=== PATIENT | male | born 1955 | race African-American/Black ===

== ENCOUNTER 2017-05-07 16:43 | Inpatient (IN) | payer OTHER ==
[~2017-05-07] VITALS: Ht 190.5 cm; Wt 90.7 kg
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
[2017-05-07] MEDS ORDERED: COLACE100 MG ORAL (17:34)
[2017-05-07] MEDS ORDERED: ATORVASTATIN CA40 MG ORAL (17:34)
[2017-05-07] MEDS ORDERED: MILK OF MA400 MG/51 ORAL (17:34)
[2017-05-07] MEDS ORDERED: HUMALOG100 UNIT/4 SUBQ (17:34)
[2017-05-07] MEDS ORDERED: ASPIRIN81 MG ORAL (17:34)
[2017-05-07] MEDS ORDERED: MELATONIN 3 MG1 EAC1 PO (17:34)
[2017-05-07] MEDS ORDERED: AMLODIPINE BESY10 MG ORAL (17:34)
[2017-05-07] MEDS ORDERED: MIRALAX17 G2 ORAL (17:34)
[2017-05-07] MEDS ORDERED: VITAMIN B-1100 MG ORAL (17:34)
[2017-05-07] MEDS ORDERED: MULTIVITAMINS1 EAC2 ORAL (17:34)
[2017-05-07] MEDS ORDERED: ZYPREXA5 MG ORAL (17:34)
[2017-05-07] MEDS ORDERED: METFORMIN HCL500 M1 ORAL (17:34)
[2017-05-07] MEDS ORDERED: KEPPRA LIQ100 MG/1 M ORAL (17:34)
[2017-05-07] MEDS ORDERED: LISINOPRIL5 MG ORAL (17:34)
[2017-05-07 18:22] LABS: APPEARANCE,URINE CLEAR; BILIRUBIN, URINE NEGATIVE (NEGATIVE); COLOR,URINE PALE YELLOW; GLUCOSE, URINE (UA) 4+ (NEGATIVE); KETONES,URINE 1+ (NEGATIVE); LEUKOCYTE ESTERASE ,URINE 1+ (NEGATIVE); NITRITE,URINE NEGATIVE (NEGATIVE); PH,URINE 5 (4.5-8.0); PROTEIN,URINE 2+ (NEGATIVE); UROBILINOGEN,URINE NORMAL MG/DL (0.0-1.0)
[2017-05-07] MEDS ORDERED: Morphine Sulfate 2mg/ml Inj IVP PRN (19:00)
[2017-05-07] MEDS ORDERED: Miralax 17gm pkt ORAL PRN (19:00)
[2017-05-07] MEDS ORDERED: Mylanta II UD 30ml ORAL PRN (19:00)
[2017-05-07] MEDS ORDERED: LORazepam Inj 2mg/ml 1ml IV PRN (19:00)
[2017-05-07 19:01] VITALS: BP 167/86
[2017-05-07 19:23] LABS: BASOPHILS % (AUTO) 0.8 % (0.0-2.0); EOSINOPHILS % (AUTO) 2.4 % (0.0-3.0); HEMATOCRIT 37.1 % (42.0-52.0); HEMOGLOBIN 11.9 G/DL (14.2-18.0); LYMPHOCYTES % (AUTO) 21.6 % (20.0-45.0); MEAN CORPUSCULAR VOLUME 88 FL (80-99); MONOCYTES % (AUTO) 7.9 % (1.0-10.0); NEUTROPHILS % (AUTO) 67.4 % (45.0-75.0); PLATELET COUNT 317 K/UL (150-450); RED BLOOD COUNT 4.22 M/UL (4.70-6.10); RED CELL DISTRIBUTION WIDTH 14.1 % (11.6-14.8); WHITE BLOOD COUNT 7.2 K/UL (4.8-10.8)
[2017-05-07 19:38] LABS: ANION GAP 9 mmol/L (5-15); BLOOD UREA NITROGEN 28 mg/dL (7-18); CALCIUM 9.6 MG/DL (8.5-10.1); CARBON DIOXIDE 30 MMOL/L (21-32); CHLORIDE 103 MMOL/L (98-107); CREATININE 1.1 MG/DL (0.55-1.30); POTASSIUM 3.8 MMOL/L (3.5-5.1); SODIUM 142 MMOL/L (136-145)
[2017-05-07 19:50] LABS: ALANINE AMINOTRANSFERASE 36 U/L (12-78); ALBUMIN/GLOBULIN RATIO 0.7 (1.0-2.7); ALKALINE PHOSPHATASE 160 U/L (46-116); ASPARTATE AMINO TRANSFERASE 20 U/L (15-37); BILIRUBIN,TOTAL 0.2 MG/DL (0.2-1.0)
[2017-05-07 21:30] VITALS: BP 159/69
[2017-05-07] MEDS: Atorvastatin 80mg tab ORAL SCH (23:17)
[2017-05-07] MEDS: Zolpidem 5mg tab ORAL PRN (23:18)
[2017-05-07] MEDS: Heparin 5000 units/ml inj SUBQ SCH (23:21)
[2017-05-08] VITALS: BP 163/82
[2017-05-08] MEDS: NovoLOG Insulin Flexpen SUBQ SCH ×5 (00:07→21:24)
[2017-05-08 04:00] VITALS: BP 165/82
[2017-05-08 07:52] LABS: BASOPHILS % (AUTO) 0.5 % (0.0-2.0); EOSINOPHILS % (AUTO) 3.1 % (0.0-3.0); HEMATOCRIT 33.3 % (42.0-52.0); HEMOGLOBIN 10.8 G/DL (14.2-18.0); LYMPHOCYTES % (AUTO) 20.6 % (20.0-45.0); MEAN CORPUSCULAR VOLUME 87 FL (80-99); MONOCYTES % (AUTO) 7.7 % (1.0-10.0); NEUTROPHILS % (AUTO) 68.1 % (45.0-75.0); PLATELET COUNT 297 K/UL (150-450); RED BLOOD COUNT 3.82 M/UL (4.70-6.10); WHITE BLOOD COUNT 6.8 K/UL (4.8-10.8)
[2017-05-08 08:04] VITALS: BP 149/73
[2017-05-08 08:13] LABS: ALANINE AMINOTRANSFERASE 31 U/L (12-78); ALBUMIN 2.7 G/DL (3.4-5.0); ALBUMIN/GLOBULIN RATIO 0.6 (1.0-2.7); ALKALINE PHOSPHATASE 143 U/L (46-116); ANION GAP 5 mmol/L (5-15); ASPARTATE AMINO TRANSFERASE 19 U/L (15-37); BILIRUBIN,TOTAL 0.2 MG/DL (0.2-1.0); BLOOD UREA NITROGEN 22 mg/dL (7-18); CARBON DIOXIDE 32 MMOL/L (21-32); CHLORIDE 102 MMOL/L (98-107); CHOLESTEROL 154 MG/DL (< 200); HDL CHOLESTEROL 79 MG/DL (40-60); POTASSIUM 4.1 MMOL/L (3.5-5.1); SODIUM 139 MMOL/L (136-145); TRIGLYCERIDES 94 MG/DL (30-150)
--- NOTE | 2017-05-08 08:39 | Diagnostic Imaging Report ---
Indication: Altered mental status Technique: One view of the chest Comparison: none Findings: Band of atelectasis or scarring are seen in the left midlung periphery. Lungs and pleural spaces otherwise clear. The heart is enlarged. Impression: Splenomegaly Left lateral atelectasis or scarring. No acute process otherwise
[2017-05-08] MEDS: Lisinopril 2.5mg tab ORAL SCH (08:48)
[2017-05-08] MEDS: Aspirin Baby 81mg ORAL SCH (08:48)
[2017-05-08] MEDS: Heparin 5000 units/ml inj SUBQ SCH ×2 (08:49→21:06)
[2017-05-08] MEDS: levETIRAcetam 500mg/5ml Liquid ORAL SCH ×2 (08:49→17:38)
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
[2017-05-08] MEDS ORDERED: OLANZapine 2.5mg tab ORAL SCH (09:00)
[2017-05-08 12:15] VITALS: BP 146/68
[2017-05-08] MEDS: Levemir Flexpen SUBQ SCH (14:16)
--- NOTE | 2017-05-08 15:58 | Cardiology Report ---
APPROVED REPORT EKG Measurement Heart [id number] Normal sinus rhythm with sinus arrhythmia Septal infarct, age undetermined Abnormal ECG
[2017-05-08 16:14] VITALS: BP 132/56
[2017-05-08 20:00] VITALS: BP 155/69
[2017-05-08] MEDS: Atorvastatin 80mg tab ORAL SCH (20:46)
[2017-05-09] VITALS: BP 153/77
[2017-05-09 04:00] VITALS: BP 154/81
[2017-05-09] MEDS: NovoLOG Insulin Flexpen SUBQ SCH ×4 (06:37→20:44)
[2017-05-09 08:15] VITALS: BP 147/62
[2017-05-09] MEDS: Thiamine 100mg tab ORAL SCH (09:15)
[2017-05-09] MEDS: Aspirin Baby 81mg ORAL SCH (09:16)
[2017-05-09] MEDS: Lisinopril 2.5mg tab ORAL SCH (09:16)
[2017-05-09] MEDS: levETIRAcetam 500mg/5ml Liquid ORAL SCH ×2 (09:16→18:13)
[2017-05-09] MEDS: Heparin 5000 units/ml inj SUBQ SCH ×2 (09:21→20:45)
[2017-05-09 12:15] VITALS: BP 133/70
[2017-05-09] MEDS: Levemir Flexpen SUBQ SCH ×2 (12:24→20:44)
--- NOTE | 2017-05-09 13:06 | Pulmonology Progress Note ---
Assessment/Plan Assessment/Plan ASSESSMENT DOOC chronic psychiatric disorder exacerbation HTN seizure disorder CVA with CREATIVE DESIGNER ETOH abuse mild dehydration mild anemia PLAN OF CARE [facility] floor psych eval appreciated, optimized psych medication.regimen- BS management, SSI and increase Levemir, check HgA1c BP management with CCB and EN, optimize further as needed continue ASA and statin DVT prophylaxis seizure precautions, continue Keppra, monitor for any paroxysmal events declined IVF, push po fluids, monitor BUN monitor counts, currently mild anemia add Thiamine and Folic acid treatment counselor on abstinence from ETOH case discussed and evaluated by supervising physician Subjective Allergies: Coded Allergies: No Known Allergies (Unverified , 05/07/17) Subjective BS still not controlled behavior better Objective Last 24 Hour Vital Signs Date Time Temp Pulse Resp B/P (MAP) Pulse Ox O2 Delivery O2 Flow Rate FiO2 05/09/17 12:15 97.3 58 19 133/70 98 Room Air 05/09/17 09:17 61 147/62 05/09/17 09:16 147/62 05/09/17 08:15 97.6 56 22 147/62 100 Room Air 05/09/17 04:00 97.2 52 21 154/81 100 05/09/17 00:00 97.1 64 20 153/77 100 05/08/17 20:00 97.2 52 20 155/69 100 05/08/17 20:00 62 20 Room Air 05/08/17 16:14 98.2 72 18 132/56 100 Room Air Intake and Output 05/08/17 05/09/17 19:00 07:00 Intake Total 480 ml Output Total 2200 ml Balance 480 ml -2200 ml Intake Oral 480 ml Output Urine Total 2200 ml # Voids 4 Objective General Appearance: no apparent distress, alert, poor eye contact HEENT: normocephalic, atraumatic, anicteric, mucous membranes moist Neck: non-tender, normal alignment, supple Respiratory/Chest: lungs clear, no respiratory distress, no accessory muscle use Cardiovascular/Chest: normal peripheral pulses, normal rate, no JVD Abdomen: normal bowel sounds, non tender, soft Extremities: non-tender, no calf tenderness, normal capillary refill Neurologic: alert, responsive, CREATIVE DESIGNER Microbiology Date/Time Source Procedure Growth Status 05/07/17 22:00 Nasal Nares MRSA Culture - Final Staphylococcus Aureus - Mrsa Complete Current Medications Medications (Trade) Dose Ordered Sig/Christine Route PRN Reason Start Time Stop Time Status Last Admin Dose Admin Acetaminophen (Tylenol) 650 mg Q4H PRN ORAL fever 05/07/17 19:00 06/06/17 18:59 Al Hydroxide/Mg Hydroxide (Mylanta II) 30 ml Q6H PRN ORAL dyspepsia 05/07/17 19:00 06/06/17 18:59 Amlodipine Besylate (Norvasc) 10 mg DAILY ORAL 05/08/17 09:00 06/07/17 08:59 05/09/17 09:17 Aspirin (ASA) 81 mg DAILY ORAL 05/08/17 09:00 06/07/17 08:59 05/09/17 09:16 Atorvastatin Calcium (Lipitor) 80 mg BEDTIME ORAL 05/07/17 21:00 06/06/17 20:59 05/08/17 20:46 Dextrose (Dextrose 50%) STAT PRN IV Hypoglycemia 05/07/17 19:00 06/06/17 18:59 Folic Acid (Folate) 1 mg DAILY ORAL 05/09/17 09:00 06/08/17 08:59 05/09/17 09:17 Heparin Sodium (Porcine) (Heparin 5000 units/ml) 5,000 units EVERY 12 HOURS SUBQ 05/07/17 21:00 06/06/17 20:59 05/09/17 09:21 Insulin Aspart (NovoLOG) BEFORE MEALS AND HS SUBQ 05/07/17 21:00 06/06/17 20:59 05/09/17 12:23 Insulin Detemir (Levemir) 15 units Q24H SUBQ 05/08/17 12:00 06/07/17 11:59 05/09/17 12:24 Levetiracetam (Keppra) 750 mg TWICE A DAY ORAL 05/08/17 09:00 06/07/17 08:59 05/09/17 09:16 Lisinopril (Zestril) 5 mg DAILY ORAL 05/08/17 09:00 06/07/17 08:59 05/09/17 09:16 Lorazepam (Ativan 2mg/ml 1ml) 0.5 mg Q4H PRN IV For Anxiety 05/07/17 19:00 05/14/17 18:59 Morphine Sulfate (Morphine Sulfate) 1 mg EVERY 4 HOURS PRN IVP For Pain 05/07/17 19:00 05/14/17 18:59 Ondansetron HCl (Zofran) 4 mg Q6H PRN IVP Nausea & Vomiting 05/07/17 19:00 06/06/17 18:59 Polyethylene Glycol (Miralax) 17 gm HSPRN PRN ORAL Constipation 05/07/17 19:00 06/06/17 18:59 Risperidone (RisperDAL) 2 mg BEDTIME ORAL 05/08/17 21:00 06/07/17 20:59 05/08/17 21:04 Thiamine HCl (Vitamin B1) 100 mg DAILY ORAL 05/09/17 09:00 06/08/17 08:59 05/09/17 09:15 Zolpidem Tartrate (Ambien) 5 mg HSPRN PRN ORAL Insomnia 05/07/17 19:00 05/14/17 18:59 05/07/17 23:18 Topher CramerEastern Niagara HospitalKsenia Limon NP May 09, 2017 13:06
[2017-05-09] MEDS ORDERED: Morphine Sulfate 4mg/ml Inj IVP PRN (16:45)
[2017-05-09 20:00] VITALS: BP 140/62
[2017-05-09] MEDS: Atorvastatin 80mg tab ORAL SCH (20:41)
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
[2017-05-10] VITALS: BP 120/50
[2017-05-10 04:00] VITALS: BP 139/72
[2017-05-10] MEDS: NovoLOG Insulin Flexpen SUBQ SCH ×4 (06:16→20:39)
[2017-05-10 08:04] VITALS: BP 134/60
[2017-05-10 08:05] LABS: BASOPHILS % (AUTO) 0.7 % (0.0-2.0); EOSINOPHILS % (AUTO) 3.5 % (0.0-3.0); HEMATOCRIT 33.9 % (42.0-52.0); LYMPHOCYTES % (AUTO) 21.5 % (20.0-45.0); MEAN CORPUSCULAR VOLUME 88 FL (80-99); MONOCYTES % (AUTO) 8.5 % (1.0-10.0); NEUTROPHILS % (AUTO) 65.8 % (45.0-75.0); PLATELET COUNT 289 K/UL (150-450); RED BLOOD COUNT 3.87 M/UL (4.70-6.10); RED CELL DISTRIBUTION WIDTH 14.3 % (11.6-14.8); WHITE BLOOD COUNT 5.7 K/UL (4.8-10.8)
[2017-05-10] MEDS: Thiamine 100mg tab ORAL SCH (09:14)
[2017-05-10] MEDS: Aspirin Baby 81mg ORAL SCH (09:14)
[2017-05-10] MEDS: levETIRAcetam 500mg/5ml Liquid ORAL SCH ×2 (09:15→18:14)
[2017-05-10] MEDS: Lisinopril 2.5mg tab ORAL SCH (09:15)
[2017-05-10] MEDS: Levemir Flexpen SUBQ SCH ×2 (09:17→18:15)
[2017-05-10] MEDS: Heparin 5000 units/ml inj SUBQ SCH ×2 (09:18→20:38)
[2017-05-10 12:00] VITALS: BP 154/70
[2017-05-10] MEDS ORDERED: DiphenhydrAMINE 50mg/ml Inj IM ONE (14:00)
[2017-05-10] MEDS ORDERED: LORazepam Inj 2mg/ml 1ml IM ONE (14:00)
[2017-05-10] MEDS ORDERED: Haloperidol 5mg/ml Inj IM ONE (14:00)
[2017-05-10 15:51] VITALS: BP 143/72
--- NOTE | 2017-05-10 15:59 | Pulmonology Progress Note ---
Assessment/Plan Problems: (1) Agitation (2) Seizure disorder (3) History of CVA (cerebrovascular accident) (4) Diabetes (5) ETOH abuse Assessment/Plan titrate meds f/u labs f/u psyc recommendations. Subjective ROS Limited/Unobtainable: No Constitutional: Reports: no symptoms HEENT: Repors: no symptoms Allergies: Coded Allergies: No Known Allergies (Unverified , 05/07/17) Objective Last 24 Hour Vital Signs Date Time Temp Pulse Resp B/P (MAP) Pulse Ox O2 Delivery O2 Flow Rate FiO2 05/10/17 15:51 98.2 78 20 143/72 100 05/10/17 15:19 Room Air 05/10/17 12:00 97.5 60 20 154/70 100 05/10/17 09:15 134/60 05/10/17 09:15 55 134/60 05/10/17 08:11 Room Air 05/10/17 08:04 97.9 55 20 134/60 100 05/10/17 04:00 97.0 58 21 139/72 100 05/10/17 00:00 97.7 76 21 120/50 97 05/10/17 00:00 Room Air 05/09/17 20:00 Room Air 05/09/17 20:00 97.9 73 21 140/62 98 Intake and Output 05/09/17 05/10/17 19:00 07:00 Intake Total 1440 ml Output Total 700 ml 1100 ml Balance 740 ml -1100 ml Intake Oral 1440 ml Output Urine Total 700 ml 1100 ml Objective General Appearance: no apparent distress, alert, poor eye contact HEENT: normocephalic, atraumatic, anicteric, mucous membranes moist Neck: non-tender, normal alignment, supple Respiratory/Chest: lungs clear, no respiratory distress, no accessory muscle use Cardiovascular/Chest: normal peripheral pulses, normal rate, no JVD Abdomen: normal bowel sounds, non tender, soft Extremities: non-tender, no calf tenderness, normal capillary refill Neurologic: alert, responsive, [employer] Microbiology Date/Time Source Procedure Growth Status 05/07/17 22:00 Nasal Nares MRSA Culture - Final Staphylococcus Aureus - Mrsa Complete 05/07/17 22:00 Rectum VRE Culture - Final Enterococcus Faecalis - Vre Complete Laboratory Tests 05/10/17 06:50: White Blood Count 5.7, Red Blood Count 3.87L, Hemoglobin 11.0L, Hematocrit 33.9L , Mean Corpuscular Volume 88, Mean Corpuscular Hemoglobin 28.4, Mean Corpuscular Hemoglobin Concent 32.4, Red Cell Distribution Width 14.3, Platelet Count 289, Mean Platelet Volume 7.1, Neutrophils (%) (Auto) 65.8, Lymphocytes (% ) (Auto) 21.5, Monocytes (%) (Auto) 8.5, Eosinophils (%) (Auto) 3.5H, Basophils (%) (Auto) 0.7, Hemoglobin A1c 10.1H, Thyroid Stimulating Hormone (TSH) 1.972 Current Medications Medications (Trade) Dose Ordered Sig/Christine Route PRN Reason Start Time Stop Time Status Last Admin Dose Admin Acetaminophen (Tylenol) 650 mg Q4H PRN ORAL fever 05/07/17 19:00 06/06/17 18:59 Al Hydroxide/Mg Hydroxide (Mylanta II) 30 ml Q6H PRN ORAL dyspepsia 05/07/17 19:00 06/06/17 18:59 Amlodipine Besylate (Norvasc) 10 mg DAILY ORAL 05/08/17 09:00 06/07/17 08:59 05/10/17 09:15 Aspirin (ASA) 81 mg DAILY ORAL 05/08/17 09:00 06/07/17 08:59 05/10/17 09:14 Atorvastatin Calcium (Lipitor) 80 mg BEDTIME ORAL 05/07/17 21:00 06/06/17 20:59 05/09/17 20:41 Dextrose (Dextrose 50%) STAT PRN IV Hypoglycemia 05/07/17 19:00 06/06/17 18:59 05/10/17 06:13 Divalproex Sodium (Depakote) 500 mg EVERY 12 HOURS ORAL 05/10/17 21:00 06/09/17 20:59 Folic Acid (Folate) 1 mg DAILY ORAL 05/09/17 09:00 06/08/17 08:59 05/10/17 09:15 Heparin Sodium (Porcine) (Heparin 5000 units/ml) 5,000 units EVERY 12 HOURS SUBQ 05/07/17 21:00 06/06/17 20:59 05/10/17 09:18 Insulin Aspart (NovoLOG) BEFORE MEALS AND HS SUBQ 05/07/17 21:00 06/06/17 20:59 05/10/17 12:13 Insulin Detemir (Levemir) 15 units BID SUBQ 05/09/17 21:00 06/08/17 20:59 05/10/17 09:17 Levetiracetam (Keppra) 750 mg TWICE A DAY ORAL 05/08/17 09:00 06/07/17 08:59 05/10/17 09:15 Lisinopril (Zestril) 5 mg DAILY ORAL 05/08/17 09:00 06/07/17 08:59 05/10/17 09:15 Lorazepam (Ativan 2mg/ml 1ml) 0.5 mg Q4H PRN IV For Anxiety 05/07/17 19:00 05/14/17 18:59 Morphine Sulfate (Morphine Sulfate) 1 mg Q4H PRN IVP For Pain 4-10 05/09/17 16:45 05/16/17 16:44 Ondansetron HCl (Zofran) 4 mg Q6H PRN IVP Nausea & Vomiting 05/07/17 19:00 06/06/17 18:59 Polyethylene Glycol (Miralax) 17 gm HSPRN PRN ORAL Constipation 05/07/17 19:00 06/06/17 18:59 Risperidone (RisperDAL) 2 mg BEDTIME ORAL 05/08/17 21:00 06/07/17 20:59 05/09/17 20:41 Risperidone (RisperDAL) 2 mg DAILY ORAL 05/11/17 09:00 06/10/17 08:59 Thiamine HCl (Vitamin B1) 100 mg DAILY ORAL 05/09/17 09:00 06/08/17 08:59 05/10/17 09:14 Zolpidem Tartrate (Ambien) 5 mg HSPRN PRN ORAL Insomnia 05/07/17 19:00 05/14/17 18:59 05/07/17 23:18 MAYRA GUTIERREZ May 10, 2017 15:59
[2017-05-10] MEDS ORDERED: RISPERDAL1 MG ORAL ×2 (17:33)
[2017-05-10] MEDS ORDERED: LEVEMIR FL100 UNIT/1 SUBQ (17:33)
[2017-05-10] MEDS ORDERED: AMBIEN5 MG ORAL (17:33)
[2017-05-10] MEDS ORDERED: DIVALPROEX SOD500 MG ORAL (17:33)
[2017-05-10 19:49] VITALS: BP 141/77
[2017-05-10] MEDS: Atorvastatin 80mg tab ORAL SCH (20:35)
[2017-05-10] MEDS: Depakote 500mg tab ORAL SCH (20:36)
--- NOTE | 2017-05-10 21:15 | Progress Note ---
DATE: 05/10/2017 SUBJECTIVE: The patient continues to be easily agitated, yelling, screaming, and not following the staff's direction. Poor insight and judgment into his mental condition. The patient has flew his food all over the room, yelling, screaming, and is delusional. MENTAL STATUS EXAMINATION: The patient is alert and oriented times self, place, and situation. Mood is irritable and angry. Affect is flat. Thought process is disorganized. Thought content, positive for delusions. Insight and judgment is nonexistent. ASSESSMENT: Schizophrenia. PLAN: 1. We will start the patient on risperidone 2 mg in the morning and 2 mg at night and Depakote 500 b.i.d. 2. We will continue to follow and readjust the medications. Marge Barrios M.D. DR: FATOU JOB#: [id number] CC:
[2017-05-11 00:09] VITALS: BP_SYST 101; BP_SYST 107; BP_DIAS 55; BP_DIAS 62
[2017-05-11 04:00] VITALS: BP 118/77
[2017-05-11] MEDS: NovoLOG Insulin Flexpen SUBQ SCH ×4 (06:30→21:16)
[2017-05-11 08:27] VITALS: BP 127/78
[2017-05-11] MEDS: Depakote 500mg tab ORAL SCH ×2 (09:51→21:13)
[2017-05-11] MEDS: Aspirin Baby 81mg ORAL SCH (09:51)
[2017-05-11] MEDS: Thiamine 100mg tab ORAL SCH (09:51)
[2017-05-11] MEDS: levETIRAcetam 500mg/5ml Liquid ORAL SCH ×2 (09:52→17:55)
[2017-05-11] MEDS: Heparin 5000 units/ml inj SUBQ SCH ×2 (09:53→21:15)
[2017-05-11] MEDS: Levemir Flexpen SUBQ SCH ×2 (09:54→17:55)
[2017-05-11] MEDS: Lisinopril 2.5mg tab ORAL SCH (09:56)
[2017-05-11 11:47] VITALS: BP 152/76
--- NOTE | 2017-05-11 15:37 | Pulmonology Progress Note ---
Assessment/Plan Problems: (1) Agitation (2) Seizure disorder (3) History of CVA (cerebrovascular accident) (4) Diabetes (5) ETOH abuse Assessment/Plan titrate meds f/u labs f/u psyc recommendations. awaiting dc to senior care Subjective ROS Limited/Unobtainable: No Constitutional: Reports: no symptoms HEENT: Repors: no symptoms Allergies: Coded Allergies: No Known Allergies (Unverified , 05/07/17) Objective Last 24 Hour Vital Signs Date Time Temp Pulse Resp B/P (MAP) Pulse Ox O2 Delivery O2 Flow Rate FiO2 05/11/17 11:47 98.0 56 20 152/76 99 05/11/17 09:56 127/78 05/11/17 09:52 56 127/78 05/11/17 08:27 97.7 56 20 127/78 100 05/11/17 04:00 97.6 76 20 118/77 98 05/11/17 00:09 97.6 70 18 101/55 97 05/10/17 19:49 98.1 82 20 141/77 99 05/10/17 15:51 98.2 78 20 143/72 100 Intake and Output 05/10/17 05/11/17 19:00 07:00 Intake Total 600 ml Output Total 1800 ml 1700 ml Balance -1200 ml -1700 ml Intake Oral 600 ml Output Urine Total 1800 ml 1700 ml # Bowel Movements 1 Objective General Appearance: no apparent distress, alert, poor eye contact HEENT: normocephalic, atraumatic, anicteric, mucous membranes moist Neck: non-tender, normal alignment, supple Respiratory/Chest: lungs clear, no respiratory distress, no accessory muscle use Cardiovascular/Chest: normal peripheral pulses, normal rate, no JVD Abdomen: normal bowel sounds, non tender, soft Extremities: non-tender, no calf tenderness, normal capillary refill Neurologic: alert, responsive, [employer] Current Medications Medications (Trade) Dose Ordered Sig/Christine Route PRN Reason Start Time Stop Time Status Last Admin Dose Admin Acetaminophen (Tylenol) 650 mg Q4H PRN ORAL fever 05/07/17 19:00 06/06/17 18:59 Al Hydroxide/Mg Hydroxide (Mylanta II) 30 ml Q6H PRN ORAL dyspepsia 05/07/17 19:00 06/06/17 18:59 Amlodipine Besylate (Norvasc) 10 mg DAILY ORAL 05/08/17 09:00 06/07/17 08:59 05/11/17 09:52 Aspirin (ASA) 81 mg DAILY ORAL 05/08/17 09:00 06/07/17 08:59 05/11/17 09:51 Atorvastatin Calcium (Lipitor) 80 mg BEDTIME ORAL 05/07/17 21:00 06/06/17 20:59 05/10/17 20:35 Dextrose (Dextrose 50%) STAT PRN IV Hypoglycemia 05/07/17 19:00 06/06/17 18:59 05/10/17 06:13 Divalproex Sodium (Depakote) 500 mg EVERY 12 HOURS ORAL 05/10/17 21:00 06/09/17 20:59 05/11/17 09:51 Folic Acid (Folate) 1 mg DAILY ORAL 05/09/17 09:00 06/08/17 08:59 05/11/17 09:51 Heparin Sodium (Porcine) (Heparin 5000 units/ml) 5,000 units EVERY 12 HOURS SUBQ 05/07/17 21:00 06/06/17 20:59 05/11/17 09:53 Insulin Aspart (NovoLOG) BEFORE MEALS AND HS SUBQ 05/07/17 21:00 06/06/17 20:59 05/11/17 11:51 Insulin Detemir (Levemir) 15 units BID SUBQ 05/09/17 21:00 06/08/17 20:59 05/11/17 09:54 Levetiracetam (Keppra) 750 mg TWICE A DAY ORAL 05/08/17 09:00 06/07/17 08:59 05/11/17 09:52 Lisinopril (Zestril) 5 mg DAILY ORAL 05/08/17 09:00 06/07/17 08:59 05/11/17 09:56 Lorazepam (Ativan 2mg/ml 1ml) 0.5 mg Q4H PRN IV For Anxiety 05/07/17 19:00 05/14/17 18:59 Morphine Sulfate (Morphine Sulfate) 1 mg Q4H PRN IVP For Pain 4-10 05/09/17 16:45 05/16/17 16:44 Ondansetron HCl (Zofran) 4 mg Q6H PRN IVP Nausea & Vomiting 05/07/17 19:00 06/06/17 18:59 Polyethylene Glycol (Miralax) 17 gm HSPRN PRN ORAL Constipation 05/07/17 19:00 06/06/17 18:59 Risperidone (RisperDAL) 2 mg BEDTIME ORAL 05/08/17 21:00 06/07/17 20:59 05/10/17 20:36 Risperidone (RisperDAL) 2 mg DAILY ORAL 05/11/17 09:00 06/10/17 08:59 05/11/17 09:51 Thiamine HCl (Vitamin B1) 100 mg DAILY ORAL 05/09/17 09:00 06/08/17 08:59 05/11/17 09:51 Zolpidem Tartrate (Ambien) 5 mg HSPRN PRN ORAL Insomnia 05/07/17 19:00 05/14/17 18:59 05/07/17 23:18 MAYRA GUTIERREZ May 11, 2017 15:37
[2017-05-11 16:00] VITALS: BP 168/93
[2017-05-11 20:16] VITALS: BP 125/60
[2017-05-11] MEDS: Atorvastatin 80mg tab ORAL SCH (21:13)
[2017-05-11] MEDS: Zolpidem 5mg tab ORAL PRN (21:13)
[2017-05-12] VITALS (7 sets, daily range): BP systolic 130–166; BP diastolic 52–87
--- NOTE | 2017-05-12 02:15 | Progress Note ---
DATE: 05/07/2017 SUBJECTIVE: The patient is easily agitated and angry, has been illogical, abusive and belligerent towards the staff. The patient has been disorganized and delusional. MENTAL STATUS EXAMINATION: The patient is alert and oriented to time, self, and place. Mood is angry and agitated. Affect is constricted, congruent with mood. Thought process is disorganized. Thought content, positive for delusions. Insight and judgment non-existent. ASSESSMENT: Schizophrenia by history versus schizoaffective disorder, bipolar. PLAN: 1. We will increase Depakote to 750 mg twice a day. 2. Increase the risperidone to 4 mg at bedtime and 2 mg in the morning. Marge Barrios M.D. DR: BRAYDON JOB#: [id number] CC:
[2017-05-12] MEDS: NovoLOG Insulin Flexpen SUBQ SCH ×3 (06:25→17:05)
[2017-05-12] MEDS ORDERED: LORazepam 1mg tab ORAL PRN (08:30)
[2017-05-12] MEDS ORDERED: Depakote 500mg tab ORAL SCH (09:00)
[2017-05-12] MEDS: Aspirin Baby 81mg ORAL SCH (09:38)
[2017-05-12] MEDS: Thiamine 100mg tab ORAL SCH (09:38)
[2017-05-12] MEDS: Lisinopril 2.5mg tab ORAL SCH (09:38)
[2017-05-12] MEDS: levETIRAcetam 500mg/5ml Liquid ORAL SCH ×2 (09:39→17:37)
[2017-05-12] MEDS: Heparin 5000 units/ml inj SUBQ SCH (09:40)
[2017-05-12] MEDS: Levemir Flexpen SUBQ SCH ×2 (09:41→17:39)
[2017-05-12] MEDS ORDERED: RISPERDAL2 MG ORAL ×2 (12:23→12:37)
[2017-05-12] MEDS ORDERED: LORAZEPAM2 MG ORAL (12:23)
[2017-05-12] MEDS ORDERED: DEPAKOTE ER500 MG ORAL (12:25)
[2017-05-12] MEDS ORDERED: DEPAKOTE250 MG PO (12:26)
[2017-05-12] MEDS ORDERED: NOVOLOG100 UNIT/3 SUBQ (12:35)
[2017-05-12] MEDS ORDERED: LEVEMIR100 UNIT/1 SUBQ (13:14)
--- NOTE | 2017-05-12 15:18 | Pulmonology Progress Note ---
Assessment/Plan Problems: (1) Agitation (2) Seizure disorder (3) History of CVA (cerebrovascular accident) (4) Diabetes (5) ETOH abuse Assessment/Plan titrate meds f/u labs f/u psyc recommendations. awaiting dc to assisted dc when bed available Subjective ROS Limited/Unobtainable: No Interval Events: comfortable Allergies: Coded Allergies: No Known Allergies (Unverified , 05/07/17) Objective Last 24 Hour Vital Signs Date Time Temp Pulse Resp B/P (MAP) Pulse Ox O2 Delivery O2 Flow Rate FiO2 05/12/17 14:00 96.0 78 19 153/73 100 Room Air 05/12/17 12:00 97.5 78 19 166/70 100 Room Air 05/12/17 09:39 105 130/52 05/12/17 09:38 130/52 05/12/17 08:01 87 05/12/17 08:00 96.8 105 18 130/52 100 Room Air 05/12/17 04:00 97.0 62 20 143/87 98 05/12/17 00:08 96.8 63 20 137/63 100 05/11/17 20:16 98.1 56 17 125/60 100 05/11/17 16:00 97.7 100 20 168/93 100 Intake and Output 05/11/17 05/12/17 19:00 07:00 Intake Total 740 ml 250 ml Output Total 2400 ml 700 ml Balance -1660 ml -450 ml Intake Oral 740 ml 250 ml Output Urine Total 2400 ml 700 ml Objective General Appearance: no apparent distress, alert, poor eye contact HEENT: normocephalic, atraumatic, anicteric, mucous membranes moist Neck: non-tender, normal alignment, supple Respiratory/Chest: lungs clear, no respiratory distress, no accessory muscle use Cardiovascular/Chest: normal peripheral pulses, normal rate, no JVD Abdomen: normal bowel sounds, non tender, soft Extremities: non-tender, no calf tenderness, normal capillary refill Neurologic: alert, responsive, [employer]ER Current Medications Medications (Trade) Dose Ordered Sig/Christine Route PRN Reason Start Time Stop Time Status Last Admin Dose Admin Acetaminophen (Tylenol) 650 mg Q4H PRN ORAL fever 05/07/17 19:00 06/06/17 18:59 Al Hydroxide/Mg Hydroxide (Mylanta II) 30 ml Q6H PRN ORAL dyspepsia 05/07/17 19:00 06/06/17 18:59 Amlodipine Besylate (Norvasc) 10 mg DAILY ORAL 05/08/17 09:00 06/07/17 08:59 05/12/17 09:39 Aspirin (ASA) 81 mg DAILY ORAL 05/08/17 09:00 06/07/17 08:59 05/12/17 09:38 Atorvastatin Calcium (Lipitor) 80 mg BEDTIME ORAL 05/07/17 21:00 06/06/17 20:59 05/11/17 21:13 Clonidine HCl (Catapres Tab) 0.1 mg Q6H PRN ORAL SBP > 160mmHg 05/11/17 18:15 06/10/17 18:14 Dextrose (Dextrose 50%) STAT PRN IV Hypoglycemia 05/07/17 19:00 06/06/17 18:59 05/10/17 06:13 Divalproex Sodium (Depakote) 750 mg EVERY 12 HOURS ORAL 05/12/17 09:00 06/11/17 08:59 05/12/17 10:50 Folic Acid (Folate) 1 mg DAILY ORAL 05/09/17 09:00 06/08/17 08:59 05/12/17 09:38 Heparin Sodium (Porcine) (Heparin 5000 units/ml) 5,000 units EVERY 12 HOURS SUBQ 05/07/17 21:00 06/06/17 20:59 05/12/17 09:40 Insulin Aspart (NovoLOG) BEFORE MEALS AND HS SUBQ 05/07/17 21:00 06/06/17 20:59 05/12/17 12:04 Insulin Detemir (Levemir) 15 units BID SUBQ 05/09/17 21:00 06/08/17 20:59 05/12/17 09:41 Levetiracetam (Keppra) 750 mg TWICE A DAY ORAL 05/08/17 09:00 06/07/17 08:59 05/12/17 09:39 Lisinopril (Zestril) 5 mg DAILY ORAL 05/08/17 09:00 06/07/17 08:59 05/12/17 09:38 Lorazepam (Ativan 2mg/ml 1ml) 0.5 mg Q4H PRN IV For Anxiety 05/07/17 19:00 05/14/17 18:59 Lorazepam (Ativan) 2 mg Q6H PRN ORAL For Anxiety 05/12/17 08:30 05/19/17 08:29 Morphine Sulfate (Morphine Sulfate) 1 mg Q4H PRN IVP For Pain 4-10 05/09/17 16:45 05/16/17 16:44 Ondansetron HCl (Zofran) 4 mg Q6H PRN IVP Nausea & Vomiting 05/07/17 19:00 06/06/17 18:59 Polyethylene Glycol (Miralax) 17 gm HSPRN PRN ORAL Constipation 05/07/17 19:00 06/06/17 18:59 Risperidone (RisperDAL) 2 mg DAILY ORAL 05/11/17 09:00 06/10/17 08:59 05/12/17 09:38 Risperidone (RisperDAL) 4 mg BEDTIME ORAL 05/12/17 21:00 06/11/17 20:59 Thiamine HCl (Vitamin B1) 100 mg DAILY ORAL 05/09/17 09:00 06/08/17 08:59 05/12/17 09:38 Zolpidem Tartrate (Ambien) 5 mg HSPRN PRN ORAL Insomnia 05/07/17 19:00 05/14/17 18:59 05/11/17 21:13 MAYRA GUTIERREZ May 12, 2017 15:18
--- NOTE | 2017-05-12 22:21 | General Progress Note ---
Assessment/Plan Status: stable, progressing Subjective Date patient seen: May 12, 2017 Neurologic/Psychiatric: Reports: anxiety, depressed, emotional problems Allergies: Coded Allergies: No Known Allergies (Unverified , 05/07/17) Objective Last 24 Hour Vital Signs Date Time Temp Pulse Resp B/P (MAP) Pulse Ox O2 Delivery O2 Flow Rate FiO2 05/12/17 18:43 84 157/75 100 Room Air 05/12/17 16:00 97.5 86 20 159/80 99 Room Air 05/12/17 14:00 96.0 78 19 153/73 100 Room Air 05/12/17 12:00 97.5 78 19 166/70 100 Room Air 05/12/17 09:39 105 130/52 05/12/17 09:38 130/52 05/12/17 08:01 87 05/12/17 08:00 96.8 105 18 130/52 100 Room Air 05/12/17 04:00 97.0 62 20 143/87 98 05/12/17 00:08 96.8 63 20 137/63 100 Intake and Output 05/11/17 05/12/17 19:00 07:00 Intake Total 740 ml 250 ml Output Total 2400 ml 700 ml Balance -1660 ml -450 ml Intake Oral 740 ml 250 ml Output Urine Total 2400 ml 700 ml Height (Feet): 6 Height (Inches): 3.00 Weight (Pounds): 200 General Appearance: no apparent distress, alert, confused, agitated Marge Barrios M.D. May 12, 2017 22:21
--- NOTE | 2017-05-13 15:20 | Discharge Summary ---
Discharge Summary Hospital Course Date of Admission May 07, 2017 at 20:57 Date of Discharge May 12, 2017 at 18:55 Admitting Diagnosis agitation/ams HPI Billy Thornton is a 61 year old male who was admitted on May 07, 2017 at 20:57 for Agitation/Altered Mental Status Hospital Course [id number] Discharge Discharge Disposition Patient was discharged to snf Discharge Diagnoses: Kaylynn Renteria NP May 13, 2017 15:20
--- NOTE | 2017-05-14 06:00 | Discharge Summary 2 SIG ---
DATE OF ADMISSION: 05/07/2017 DATE OF DISCHARGE: 05/12/2017 ENROLLMENT MANAGEMENT VICE PRESIDENT: Marge Barrios M.D. BRIEF HOSPITAL COURSE: The patient is a 61-year-old male with history of hypertension, diabetes, seizure disorder, CVA with left-sided weakness, CAD, alcohol abuse, and psychiatric disorder, was sent from group home facility for evaluation of altered mental status and agitation. On presentation to ED, the patient was awake, alert, and oriented x3. He stated that he got into an altercation with the nurses because he felt like he was being manipulated by them. On evaluation at ED, toxicology screen was negative. Troponin was negative. EKG showed sinus rhythm with no ischemic changes. There was no leukocytosis. Electrolytes were stable. BUN was elevated. Urinalysis with 4+ glucose and 1+ ketone. Chest x-ray showed atelectasis versus scarring. He was then admitted for further evaluation. He was continued on aspirin and statins. Blood glucose was monitored. He was placed on insulin sliding scale and Levemir was added. He underwent psychiatric evaluation. The patient was delusional and was having persecutory delusions with waxing and waning of consciousness and agitation. He was provided a sitter. He was diagnosed with schizophrenia and was started on risperidone 2 mg nightly with p.r.n. Ativan. He continued to be agitated and yelling and was not following directions. Risperidone was increased to 2 mg b.i.d. and was started on Depakote 500 mg b.i.d. He continued to be illogical, abusive, and belligerent. Medications were further increased to risperidone 4 mg nightly and 2 mg every morning. Depakote was increased to 750 mg b.i.d. He was eventually discharged back to senior care. FINAL DIAGNOSES: 1. Agitation. 2. Seizure disorder. 3. Diabetes mellitus. 4. Old cerebrovascular accident. 5. Schizophrenia. 6. Schizoaffective disorder. 7. Bipolar disorder. 8. Ethanol abuse. 9. Dehydration. 10. Mild anemia. 11. Hypertension. 12. Seizure disorder. DISPOSITION: The patient was discharged to [facility]. DISCHARGE MEDICATIONS: Refer to medication list. Roxane Quijano M.D. I have been assigned to dictate discharge summary on this account and I was not involved in the patient's management. Kaylynn Renteria N.P. DR: Salvador JOB#: [id number] CC: JASON
== END 2017-05-12 18:55 | DRG 750 ==
LOC: EDBD 16:43 → EDBEDREQ 17:28 → EMR 19:07 → 4E 20:57 → EDBEDREQ 21:00 → 4E 05-09 16:32
DX: F20.9 Schizophrenia, unspecified (principal); E11.65 Type 2 diabetes mellitus with hyperglycemia; I10 Essential (primary) hypertension; I69.954 Hemiplegia and hemiparesis following unspecified cerebrovascular disease affecting left non-dominant side; E86.0 Dehydration; G40.909 Epilepsy, unspecified, not intractable, without status epilepticus; F10.10 Alcohol abuse, uncomplicated; D64.9 Anemia, unspecified; I25.10 Atherosclerotic heart disease of native coronary artery without angina pectoris; Z79.82 Long term (current) use of aspirin
CPT/HCPCS: 36415; 71045; 80053; 80061; 80307; 80329; 81003; 82962; 83036; 84443; 84484; 85025; 87081; 93005; 99285; J1815; S5561

== ENCOUNTER 2017-05-13 09:49 | Emergency (ER) | payer OTHER ==
[~2017-05-13] VITALS: Ht 182.9 cm; Wt 79.4 kg
[~2017-05-13 09:49] MED LIST: AMBIEN5 MG ORAL; AMLODIPINE BESY10 MG ORAL; ASPIRIN81 MG ORAL; ATORVASTATIN CA40 MG ORAL; COLACE100 MG ORAL; DEPAKOTE ER500 MG ORAL; DEPAKOTE250 MG PO; DIVALPROEX SOD500 MG ORAL; HUMALOG100 UNIT/4 SUBQ; KEPPRA LIQ100 MG/1 M ORAL; LEVEMIR FL100 UNIT/1 SUBQ; LEVEMIR100 UNIT/1 SUBQ; LISINOPRIL5 MG ORAL; LORAZEPAM2 MG ORAL; MELATONIN 3 MG1 EAC1 PO; METFORMIN HCL500 M1 ORAL; MILK OF MA400 MG/51 ORAL; MIRALAX17 G2 ORAL; MULTIVITAMINS1 EAC2 ORAL; NOVOLOG100 UNIT/3 SUBQ; RISPERDAL1 MG ORAL; RISPERDAL2 MG ORAL; VITAMIN B-1100 MG ORAL; ZYPREXA5 MG ORAL
[2017-05-13 11:31] LABS: BASOPHILS % (AUTO) 0.8 % (0.0-2.0); EOSINOPHILS % (AUTO) 1.1 % (0.0-3.0); HEMATOCRIT 38.3 % (42.0-52.0); HEMOGLOBIN 12.6 G/DL (14.2-18.0); LYMPHOCYTES % (AUTO) 17.7 % (20.0-45.0); MEAN CORPUSCULAR VOLUME 87 FL (80-99); MONOCYTES % (AUTO) 3.5 % (1.0-10.0); NEUTROPHILS % (AUTO) 76.9 % (45.0-75.0); PLATELET COUNT 281 K/UL (150-450); RED BLOOD COUNT 4.38 M/UL (4.70-6.10); RED CELL DISTRIBUTION WIDTH 14.7 % (11.6-14.8)
[2017-05-13 11:49] LABS: ANION GAP 5 mmol/L (5-15); BLOOD UREA NITROGEN 19 mg/dL (7-18); CALCIUM 9.6 MG/DL (8.5-10.1); CARBON DIOXIDE 32 MMOL/L (21-32); CHLORIDE 101 MMOL/L (98-107); CREATININE 0.8 MG/DL (0.55-1.30); POTASSIUM 4.6 MMOL/L (3.5-5.1); SODIUM 138 MMOL/L (136-145)
[2017-05-13 11:53] LABS: ALANINE AMINOTRANSFERASE 29 U/L (12-78); ALBUMIN 3.1 G/DL (3.4-5.0); ALBUMIN/GLOBULIN RATIO 0.6 (1.0-2.7); ALKALINE PHOSPHATASE 165 U/L (46-116); ASPARTATE AMINO TRANSFERASE 29 U/L (15-37); BILIRUBIN,TOTAL 0.3 MG/DL (0.2-1.0)
[2017-05-13] MEDS ORDERED: LORazepam 1mg tab ORAL ONE (13:45)
--- NOTE | 2017-05-13 14:15 | Emergency Room Report ---
History of Present Illness General Chief Complaint: Behavioral Complaint Source: Medical Record Present Illness HPI Patient presents with complaints of agitation Patient was here several days ago had psychiatric placement at a facility this morning apparently the patient became acutely psychotic patient had 911 called He has had a history of schizophrenia At this time denies any suicidal or homicidal thoughts denies any chest pain or shortness of breath the facility that the patient was at did not feel comfortable with the patient and has been brought in by paramedics patient was put on a 5150 hold for a possible danger to himself by police department Allergies: Coded Allergies: No Known Allergies (Unverified , 05/07/17) Patient History Past Medical History: see triage record Pertinent Family History: unable to obtain Reviewed Nursing Documentation: PMH: Agreed, PSxH: Agreed Nursing Documentation-PMH Hx Cardiac Problems: Yes Hx Hypertension: Yes Hx Diabetes: Yes Hx Neurological Problems: Yes - Epilepsy Hx Cerebrovascular Accident: Yes - left sided weakness Review of Systems All Other Systems: negative except mentioned in HPI Physical Exam Vital Signs Date Time Temp Pulse Resp B/P (MAP) Pulse Ox O2 Delivery O2 Flow Rate FiO2 05/13/17 09:45 98.2 58 16 154/74 98 Room Air Sp02 EP Interpretation: reviewed, normal General Appearance: no apparent distress Head: normocephalic, atraumatic Eyes: bilateral eye PERRL, bilateral eye EOMI ENT: hearing grossly normal, normal pharynx, TMs + canals normal, uvula midline Neck: full range of motion, supple, no meningismus, no bony tend Respiratory: lungs clear, normal breath sounds, no rhonchi, no respiratory distress, no retraction, no accessory muscle use Cardiovascular #1: normal peripheral pulses, regular rate, rhythm, no edema, no gallop, no JVD, no murmur Gastrointestinal: normal bowel sounds, non tender, soft, no mass, no organomegaly, non-distended, no guarding, no hernia, no pulsatile mass, no rebound Genitourinary: no CVA tenderness Musculoskeletal: normal inspection Neurologic: responsive, inspector heating and refrigeration III-XII nml as tested, motor strength/tone normal, sensory intact Psychiatric: anxious Skin: normal color, no rash, warm/dry, palpation normal Lymphatic: normal inspection, no adenopathy Medical Decision Making Diagnostic Impression: Primary Impression: Behavioral change ER Course Patient initially here denying any suicidal or homicidal thoughts However was apparently having acute psychosis at the facility Currently having further examination done to medically clear Patient is medically clear Psychiatry service has requested for further eval Labs Test 05/13/17 10:40 White Blood Count 6.0 K/UL (4.8-10.8) Red Blood Count 4.38 M/UL (4.70-6.10) Hemoglobin 12.6 G/DL (14.2-18.0) Hematocrit 38.3 % (42.0-52.0) Mean Corpuscular Volume 87 FL (80-99) Mean Corpuscular Hemoglobin 28.8 PG (27.0-31.0) Mean Corpuscular Hemoglobin Concent 32.9 G/DL (32.0-36.0) Red Cell Distribution Width 14.7 % (11.6-14.8) Platelet Count 281 K/UL (150-450) Mean Platelet Volume 7.2 FL (6.5-10.1) Neutrophils (%) (Auto) 76.9 % (45.0-75.0) Lymphocytes (%) (Auto) 17.7 % (20.0-45.0) Monocytes (%) (Auto) 3.5 % (1.0-10.0) Eosinophils (%) (Auto) 1.1 % (0.0-3.0) Basophils (%) (Auto) 0.8 % (0.0-2.0) Sodium Level 138 MMOL/L (136-145) Potassium Level 4.6 MMOL/L (3.5-5.1) Chloride Level 101 MMOL/L (98-107) Carbon Dioxide Level 32 MMOL/L (21-32) Anion Gap 5 mmol/L (5-15) Blood Urea Nitrogen 19 mg/dL (7-18) Creatinine 0.8 MG/DL (0.55-1.30) Estimat Glomerular Filtration Rate > 60 mL/min (>60) Glucose Level 202 MG/DL (74-106) Calcium Level 9.6 MG/DL (8.5-10.1) Total Bilirubin 0.3 MG/DL (0.2-1.0) Aspartate Amino Transf (AST/SGOT) 29 U/L (15-37) Alanine Aminotransferase (ALT/SGPT) 29 U/L (12-78) Alkaline Phosphatase 165 U/L (46-116) Total Protein 8.0 G/DL (6.4-8.2) Albumin 3.1 G/DL (3.4-5.0) Globulin 4.9 g/dL Albumin/Globulin Ratio 0.6 (1.0-2.7) Salicylates Level 1.8 ug/mL (2.8-20) Urine Opiates Screen Negative (NEGATIVE) Acetaminophen Level < 2 MCG/ML (10-30) Urine Barbiturates Screen Negative (NEGATIVE) Phencyclidine (PCP) Screen Negative (NEGATIVE) Urine Amphetamines Screen Negative (NEGATIVE) Urine Benzodiazepines Screen Negative (NEGATIVE) Urine Cocaine Screen Negative (NEGATIVE) Urine Marijuana (THC) Screen Negative (NEGATIVE) Serum Alcohol < 3 mg/dL Last Vital Signs Date Time Temp Pulse Resp B/P (MAP) Pulse Ox O2 Delivery O2 Flow Rate FiO2 05/13/17 12:30 60 14 100 Room Air 05/13/17 09:45 98.2 154/74 Status: improved Signed Out To: oncoming physician Referrals: NON PHYSICIAN (PCP) LORI MAST D.O. May 13, 2017 14:15
[2017-05-13 16:45] VITALS: BP 151/72
[2017-05-13 19:07] VITALS: BP 147/68
[2017-05-13 22:33] VITALS: BP 194/85
[2017-05-13 23:40] VITALS: BP 194/85
== END 2017-05-13 23:44 | disposition short-term general hospital (02) ==
LOC: EDBD 09:49 → EMR 10:25
DX: R46.89 Other symptoms and signs involving appearance and behavior (principal); E11.9 Type 2 diabetes mellitus without complications; I10 Essential (primary) hypertension; I69.354 Hemiplegia and hemiparesis following cerebral infarction affecting left non-dominant side; Z86.69 Personal history of other diseases of the nervous system and sense organs
CPT/HCPCS: 36415; 80053; 80307; 80329; 85025; 96374; 99285; J1815

== ENCOUNTER 2017-05-14 01:36 | Inpatient (IN) | payer OTHER ==
[~2017-05-14] VITALS: Ht 185.4 cm; Wt 83.9 kg
[2017-05-14] MEDS ORDERED: LORazepam Inj 2mg/ml 1ml IM ONE (02:15)
[2017-05-14] MEDS ORDERED: Haloperidol 5mg/ml Inj IM ONE (02:15)
--- NOTE | 2017-05-14 06:50 | Emergency Room Report ---
History of Present Illness General Chief Complaint: Behavioral Complaint Source: Patient, Medical Record, EMS Present Illness HPI This is a 61-year-old male who was just here for increasing psychosis and diabetes. Because his blood sugar spiked a 500, without DKA, he was accepted to [facility]. Once he got there him a nursing staff said that they cannot take patient on a 5150 hold. On nursing report this was relayed to them already. This was sent here. On arrival patient seemed to be more agitated. No suicidal thought homicidal thought. 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 Review of Systems ENT: Denies: sore throat Cardiovascular: Denies: chest pain, palpitations Gastrointestinal/Abdominal: Denies: nausea, vomiting, diarrhea Musculoskeletal: Denies: back problems Skin: Denies: rash Neurological: Denies: [place], seizures All Other Systems: negative except mentioned in HPI Physical Exam Vital Signs Date Time Temp Pulse Resp B/P (MAP) Pulse Ox O2 Delivery O2 Flow Rate FiO2 05/14/17 01:43 97.7 55 16 174/75 96 Room Air vitals normal except for high blood pressure Sp02 EP Interpretation: reviewed, normal General Appearance: alert/responsive, no apparent distress, non-toxic Head: normocephalic, atraumatic Eyes: PERRL, EOMI ENT: oropharynx normal Neck: supple/symm/no masses Respiratory: effort normal, no rhonchi, no wheezing Cardiovascular: no murmur, gallop, rub Gastrointestinal: non-tender, no mass, non-distended, no rebound/guarding, normal bowel sounds Musculoskeletal: gait & station normal Neurologic: oriented x3, sensory intact, motor strength/tone normal Skin: no rash, normal palpation Medical Decision Making Diagnostic Impression: Primary Impression: Psychosis Qualified Codes: F23 - Brief psychotic disorder Additional Impression: Hyperglycemia due to type 1 diabetes mellitus ER Course Patient with agitation and psychosis. He had to be sedated. Blood sugar normalize after insulin. He is medically clear for psychiatric placement. I will sign this patient back out to Dr. Gaines. Last Vital Signs Date Time Temp Pulse Resp B/P (MAP) Pulse Ox O2 Delivery O2 Flow Rate FiO2 05/14/17 01:43 97.7 55 16 174/75 96 Room Air Status: improved Disposition: XFER TO PSYCH HOSP/UNIT Condition: Stable Referrals: [facility],REFERRING (PCP) LIBORIO COBB M.D. May 14, 2017 06:50
[2017-05-14 06:57] VITALS: BP 154/79
[2017-05-14 11:16] VITALS: BP 148/76
[2017-05-14 20:00] VITALS: BP 132/76
[2017-05-14 22:00] VITALS: BP 139/74
[2017-05-15] VITALS (9 sets, daily range): BP systolic 103–144; BP diastolic 60–78
[2017-05-15] MEDS ORDERED: Morphine Sulfate 2mg/ml Inj IVP PRN (06:30)
[2017-05-15] MEDS ORDERED: Mylanta II UD 30ml ORAL PRN (06:30)
[2017-05-15] MEDS ORDERED: Nitroglycerin Subl 0.4mg tab SL PRN (06:30)
[2017-05-15] MEDS ORDERED: Miralax 17gm pkt ORAL PRN (06:30)
[2017-05-15] MEDS ORDERED: Ketorolac 30mg Inj IV PRN (06:30)
[2017-05-15] MEDS ORDERED: Albuterol/Ipratropium 3ml neb HHN PRN (06:30)
[2017-05-15] MEDS ORDERED: Depakote 500mg tab ORAL SCH (09:00)
[2017-05-15] MEDS ORDERED: OLANZapine 2.5mg tab ORAL SCH (09:00)
[2017-05-15] MEDS: Heparin 5000 units/ml inj SUBQ SCH ×2 (09:00→21:00)
[2017-05-15] MEDS: levETIRAcetam 500mg/5ml Liquid ORAL SCH ×2 (09:49→18:07)
[2017-05-15] MEDS: Lisinopril 2.5mg tab ORAL SCH (10:00)
[2017-05-15] MEDS: NovoLOG Insulin Flexpen SUBQ SCH ×4 (10:45→22:12)
[2017-05-15] MEDS: Levemir Flexpen SUBQ SCH ×2 (10:49→22:14)
--- NOTE | 2017-05-15 10:57 | Consultation ---
History of Present Illness General Date patient seen: May 14, 2017 Chief Complaint: Behavioral Complaint Present Illness HPI the pt Allergies: Coded Allergies: No Known Allergies (Unverified , 05/07/17) Medication History Scheduled Amlodipine Besylate* (Amlodipine Besylate*), 10 MG ORAL DAILY, (Reported) Aspirin* (Aspirin*), 81 MG ORAL DAILY, (Reported) Atorvastatin Calcium* (Atorvastatin Calcium*), 80 MG ORAL BEDTIME, (Reported) Divalproex Sodium (Divalproex Sodium), 500 MG ORAL EVERY 12 HOURS Divalproex Sodium* (Depakote Er*), 750 MG ORAL EVERY 12 HOURS, (Reported) Divalproex Sodium* (Depakote*), 750 MG PO Q12HR, (Reported) Docusate Sodium* (Colace*), 100 MG ORAL DAILY, (Reported) Insulin Detemir (Levemir Flexpen), 15 UNITS SUBQ BID Insulin Detemir (Levemir), 15 SUBQ Q12HR, (Reported) Levetiracetam (Keppra), 7.5 ML ORAL TWICE A DAY, (Reported) Lisinopril (Lisinopril*), 5 MG ORAL DAILY, (Reported) Magnesium Hydroxide* (Milk Of Magnesia*), 30 ML ORAL DAILY, (Reported) Metformin Hcl* (Metformin Hcl*), 500 MG ORAL TWICE A DAY, (Reported) Multivitamins* (Multivitamins*), 1 TAB ORAL DAILY, (Reported) Olanzapine* (Zyprexa*), 5 MG ORAL DAILY, (Reported) Polyethylene Glycol 3350* (Miralax*), 17 GM ORAL DAILY, (Reported) Risperidone* (Risperdal*), 2 MG ORAL BEDTIME Risperidone* (Risperdal*), 2 MG ORAL DAILY Risperidone* (Risperdal*), 4 MG ORAL QHS, (Reported) Risperidone* (Risperdal*), 2 MG ORAL DAILY, (Reported) Thiamine Hcl* (Vitamin B-1*), 100 MG ORAL DAILY, (Reported) Scheduled PRN Insulin Aspart* (Novolog*), 0 SUBQ for Per rx protocol, (Reported) Lorazepam* (Lorazepam*), 2 MG ORAL Q6HR PRN for Agitation, (Reported) Zolpidem Tartrate* (Ambien*), 5 MG ORAL HSPRN PRN Miscellaneous Medications Insulin Lispro (Humalog), 0 SUBQ, (Reported) Melatonin/Pyridoxine HCl (B6) (Melatonin 3 mg Tablet), 1 EACH PO, (Reported) Patient History Healthcare decision maker Resuscitation status Advanced Directive on File Physical Exam Last 24 Hour Vital Signs Date Time Temp Pulse Resp B/P (MAP) Pulse Ox O2 Delivery O2 Flow Rate FiO2 05/15/17 10:40 65 120/65 05/15/17 08:15 97.0 65 20 120/65 97 Room Air 05/15/17 07:30 88 20 129/88 99 Room Air 05/15/17 06:00 98.0 80 18 126/73 99 Room Air 05/15/17 04:00 98.0 76 18 138/73 99 Room Air 05/15/17 02:00 98.1 74 18 142/74 99 Room Air 05/15/17 00:00 97.8 85 16 144/78 96 Room Air 05/14/17 22:00 98.0 78 16 139/74 98 Room Air 05/14/17 20:00 97.9 82 16 132/76 96 Room Air 05/14/17 11:16 97.7 88 16 148/76 95 Room Air Height (Feet): 6 Height (Inches): 3.00 Weight (Pounds): 165 Medications Current Medications Medications (Trade) Dose Ordered Sig/Christine Route PRN Reason Start Time Stop Time Status Last Admin Dose Admin Acetaminophen (Tylenol) 650 mg Q4H PRN ORAL fever 05/15/17 06:30 06/14/17 06:29 Al Hydroxide/Mg Hydroxide (Mylanta II) 30 ml Q6H PRN ORAL dyspepsia 05/15/17 06:30 06/14/17 06:29 Albuterol/ Ipratropium (Albuterol/ Ipratropium) 3 ml Q4H PRN HHN Shortness of Breath 05/15/17 06:30 05/20/17 06:29 Amlodipine Besylate (Norvasc) 10 mg DAILY ORAL 05/15/17 09:00 06/14/17 08:59 05/15/17 10:40 Clonidine HCl (Catapres Tab) 0.1 mg Q4H PRN ORAL sbp more than 160 2/10/18 06:30 06/14/17 06:29 Dextrose (Dextrose 50%) STAT PRN IV Hypoglycemia 05/15/17 06:30 06/14/17 06:29 Divalproex Sodium (Depakote) 500 mg EVERY 12 HOURS ORAL 05/15/17 09:00 06/14/17 08:59 05/15/17 09:46 Heparin Sodium (Porcine) (Heparin 5000 units/ml) 5,000 units EVERY 12 HOURS SUBQ 05/15/17 09:00 06/14/17 08:59 Insulin Aspart (NovoLOG) BEFORE MEALS AND HS SUBQ 05/15/17 06:30 06/14/17 06:29 05/15/17 10:45 Insulin Detemir (Levemir) 15 units EVERY 12 HOURS SUBQ 05/15/17 09:00 06/14/17 08:59 05/15/17 10:49 Ketorolac Tromethamine (Toradol 30mg) 30 mg Q6H PRN IV moderate pain 4-6 05/15/17 06:30 05/20/17 06:29 Levetiracetam (Keppra) 750 mg TWICE A DAY ORAL 05/15/17 09:00 06/14/17 08:59 05/15/17 09:49 Lisinopril (Zestril) 5 mg DAILY ORAL 05/15/17 09:00 06/14/17 08:59 Morphine Sulfate (Morphine Sulfate) 2 mg Q4H PRN IVP severe pain 7-10 05/15/17 06:30 05/22/17 06:29 Nitroglycerin (Ntg) 0.4 mg Q5M X 3 DOSES PRN SL Prn Chest Pain 05/15/17 06:30 06/14/17 06:29 Olanzapine (ZyPREXA) 5 mg DAILY ORAL 05/15/17 09:00 06/14/17 08:59 05/15/17 09:46 Ondansetron HCl (Zofran) 4 mg Q6H PRN IVP Nausea & Vomiting 05/15/17 06:30 3 06:29 05/15/17 09:49 Polyethylene Glycol (Miralax) 17 gm HSPRN PRN ORAL Constipation 05/15/17 06:30 06/14/17 06:29 Risperidone (RisperDAL) 4 mg QHS ORAL 05/15/17 21:00 06/14/17 20:59 Sodium Chloride 1,000 ml @ 100 mls/hr Q10H IVLG 05/15/17 06:26 06/14/17 06:25 Temazepam (Restoril) 15 mg HSPRN PRN ORAL Insomnia 05/15/17 06:30 05/22/17 06:29 Marge Barrios M.D. May 15, 2017 10:57
--- NOTE | 2017-05-15 12:27 | History and Physical ---
History of Present Illness General Date patient seen: May 15, 2017 Reason for Hospitalization: Behavioral Complaint Present Illness HPI 61 year old with hx of psychosis, DM, seizure disorder, and [facility] resident presents [facility] Emergency Room with complaint of abnormally high blood sugar levels and also a behavioral complaint. The patient has been initiated on insulin per sliding scale with gentle IV fluid hydration mitigating blood acidity and hyperosmolarity. A psychiatric consultation has been requested to also assist in the patients complaints of depressive feeling and anxiety. Suicidality denied by the patient at this time. Allergies: Coded Allergies: No Known Allergies (Unverified , 05/07/17) Medication History Scheduled Amlodipine Besylate* (Amlodipine Besylate*), 10 MG ORAL DAILY, (Reported) Aspirin* (Aspirin*), 81 MG ORAL DAILY, (Reported) Divalproex Sodium (Divalproex Sodium), 500 MG ORAL EVERY 12 HOURS Insulin Detemir (Levemir), 15 SUBQ Q12HR, (Reported) Levetiracetam (Keppra), 7.5 ML ORAL TWICE A DAY, (Reported) Lisinopril (Lisinopril*), 5 MG ORAL DAILY, (Reported) Magnesium Hydroxide* (Milk Of Magnesia*), 30 ML ORAL DAILY, (Reported) Nitroglycerin (Nitroglycerin), 0.4 MG SL [id number] prn, (Reported) Polyethylene Glycol 3350* (Miralax*), 17 GM ORAL DAILY, (Reported) Risperidone* (Risperdal*), 4 MG ORAL QHS, (Reported) Scheduled PRN Clonidine Hcl* (Catapres*), 0.1 MG ORAL Q4HR PRN for sbp>160, (Reported) Insulin Aspart* (Novolog*), 0 SUBQ for Per rx protocol, (Reported) Patient History Healthcare decision maker Resuscitation status Advanced Directive on File Social History Social History: (1) Diabetes (2) Seizure disorder (3) HTN (hypertension) (4) History of CVA (cerebrovascular accident) (5) Behavioral disorder Review of Systems Psychiatric: Reports: anxiety, depressed feelings, emotional problems Physical Exam General Appearance: WD/WN Lines, tubes and drains: peripheral HEENT: normocephalic, atraumatic Neck: non-tender, normal alignment, supple Respiratory/Chest: chest wall non-tender, lungs clear, no respiratory distress Cardiovascular/Chest: normal peripheral pulses, normal rate, regular rhythm Abdomen: normal bowel sounds, non tender, soft, no organomegaly, no mass Genitourinary/Rectal: normal genital exam Extremities: non-tender, normal inspection, no calf tenderness, normal capillary refill Skin Exam: normal pigmentation, warm/dry Neurologic: interventional physiatrist II-XII grossly normal, motor weakness, disoriented Last 24 Hour Vital Signs Date Time Temp Pulse Resp B/P (MAP) Pulse Ox O2 Delivery O2 Flow Rate FiO2 05/15/17 10:40 65 120/65 05/15/17 08:15 97.0 65 20 120/65 97 Room Air 05/15/17 07:30 88 20 129/88 99 Room Air 05/15/17 06:00 98.0 80 18 126/73 99 Room Air 05/15/17 04:00 98.0 76 18 138/73 99 Room Air 05/15/17 02:00 98.1 74 18 142/74 99 Room Air 05/15/17 00:00 97.8 85 16 144/78 96 Room Air 05/14/17 22:00 98.0 78 16 139/74 98 Room Air 05/14/17 20:00 97.9 82 16 132/76 96 Room Air Height (Feet): 6 Height (Inches): 3.00 Weight (Pounds): 165 Medications Current Medications Medications (Trade) Dose Ordered Sig/Christine Route PRN Reason Start Time Stop Time Status Last Admin Dose Admin Acetaminophen (Tylenol) 650 mg Q4H PRN ORAL fever 05/15/17 06:30 06/14/17 06:29 Al Hydroxide/Mg Hydroxide (Mylanta II) 30 ml Q6H PRN ORAL dyspepsia 05/15/17 06:30 06/14/17 06:29 Albuterol/ Ipratropium (Albuterol/ Ipratropium) 3 ml Q4H PRN HHN Shortness of Breath 05/15/17 06:30 05/20/17 06:29 Amlodipine Besylate (Norvasc) 10 mg DAILY ORAL 05/15/17 09:00 06/14/17 08:59 05/15/17 10:40 Clonidine HCl (Catapres Tab) 0.1 mg Q4H PRN ORAL sbp more than 160 05/15/17 06:30 06/14/17 06:29 Dextrose (Dextrose 50%) STAT PRN IV Hypoglycemia 05/15/17 06:30 06/14/17 06:29 Divalproex Sodium (Depakote) 1,000 mg EVERY 12 HOURS ORAL 05/15/17 21:00 06/14/17 20:59 Heparin Sodium (Porcine) (Heparin 5000 units/ml) 5,000 units EVERY 12 HOURS SUBQ 05/15/17 09:00 06/14/17 08:59 Insulin Aspart (NovoLOG) BEFORE MEALS AND HS SUBQ 05/15/17 06:30 06/14/17 06:29 05/15/17 11:49 Insulin Detemir (Levemir) 15 units EVERY 12 HOURS SUBQ 05/15/17 09:00 06/14/17 08:59 05/15/17 10:49 Ketorolac Tromethamine (Toradol 30mg) 30 mg Q6H PRN IV moderate pain 4-6 05/15/17 06:30 05/20/17 06:29 Levetiracetam (Keppra) 750 mg TWICE A DAY ORAL 05/15/17 09:00 06/14/17 08:59 05/15/17 09:49 Lisinopril (Zestril) 5 mg DAILY ORAL 05/15/17 09:00 06/14/17 08:59 Lorazepam (Ativan) 2 mg Q6H PRN ORAL For Anxiety 05/15/17 11:00 05/22/17 10:59 Morphine Sulfate (Morphine Sulfate) 2 mg Q4H PRN IVP severe pain 7-10 05/15/17 06:30 05/22/17 06:29 Nitroglycerin (Ntg) 0.4 mg Q5M X 3 DOSES PRN SL Prn Chest Pain 05/15/17 06:30 06/14/17 06:29 Ondansetron HCl (Zofran) 4 mg Q6H PRN IVP Nausea & Vomiting 05/15/17 06:30 06/14/17 06:29 05/15/17 09:49 Polyethylene Glycol (Miralax) 17 gm HSPRN PRN ORAL Constipation 05/15/17 06:30 06/14/17 06:29 Risperidone (RisperDAL) 3 mg BID ORAL 05/15/17 18:00 06/14/17 20:59 Sodium Chloride 1,000 ml @ 100 mls/hr Q10H IVLG 05/15/17 06:26 06/14/17 06:25 05/15/17 11:08 Temazepam (Restoril) 15 mg HSPRN PRN ORAL Insomnia 05/15/17 06:30 05/22/17 06:29 Assessment/Plan Problem List: (1) Hyperglycemia due to type 1 diabetes mellitus ICD Codes: E10.65 - Type 1 diabetes mellitus with hyperglycemia SNOMED: 585096602811787, 40431194 (2) Seizure disorder ICD Codes: G40.909 - Epilepsy, unspecified, not intractable, without status epilepticus SNOMED: 248537022 (3) HTN (hypertension) ICD Codes: I10 - Essential (primary) hypertension SNOMED: 70352506 Qualifiers: Qualified Codes: I10 - Essential (primary) hypertension (4) History of CVA (cerebrovascular accident) ICD Codes: Z86.73 - Personal history of transient ischemic attack (TIA), and cerebral infarction without residual deficits SNOMED: 988663842 (5) Behavioral disorder SNOMED: 058877230 (6) Diabetes ICD Codes: E11.9 - Type 2 diabetes mellitus without complications SNOMED: 08153094 Qualifiers: (7) Psychosis ICD Codes: F29 - Unspecified psychosis not due to a substance or known physiological condition SNOMED: 83920674, 16033612 Qualifiers: Qualified Codes: F23 - Brief psychotic disorder Status: stable, progressing Assessment/Plan Psych management Sliding scale Psychiatry to see DVT prophylaxis MAYRA GUTIERREZ May 15, 2017 12:27
[2017-05-15] MEDS: LORazepam 1mg tab ORAL PRN (19:05)
[2017-05-15] MEDS: Depakote 500mg tab ORAL SCH (22:18)
[2017-05-16 04:03] VITALS: BP_SYST 103; BP_SYST 124; BP_DIAS 63; BP_DIAS 78
[2017-05-16] MEDS: NovoLOG Insulin Flexpen SUBQ SCH ×6 (06:00→21:00)
[2017-05-16 08:33] LABS: BASOPHILS % (AUTO) 0.3 % (0.0-2.0); EOSINOPHILS % (AUTO) 0.5 % (0.0-3.0); HEMATOCRIT 35.2 % (42.0-52.0); HEMOGLOBIN 11.8 G/DL (14.2-18.0); MEAN CORPUSCULAR VOLUME 86 FL (80-99); NEUTROPHILS % (AUTO) 78.1 % (45.0-75.0); PLATELET COUNT 304 K/UL (150-450); RED BLOOD COUNT 4.07 M/UL (4.70-6.10); RED CELL DISTRIBUTION WIDTH 14.2 % (11.6-14.8); WHITE BLOOD COUNT 7.7 K/UL (4.8-10.8)
[2017-05-16 09:00] VITALS: BP 136/78
[2017-05-16] MEDS: levETIRAcetam 500mg/5ml Liquid ORAL SCH ×2 (09:01→18:05)
[2017-05-16] MEDS: Depakote 500mg tab ORAL SCH ×2 (09:01→21:14)
[2017-05-16] MEDS: Lisinopril 2.5mg tab ORAL SCH (09:02)
[2017-05-16 09:09] LABS: ALANINE AMINOTRANSFERASE 24 U/L (12-78); ALBUMIN 2.8 G/DL (3.4-5.0); ALBUMIN/GLOBULIN RATIO 0.6 (1.0-2.7); ALKALINE PHOSPHATASE 144 U/L (46-116); ANION GAP 8 mmol/L (5-15); ASPARTATE AMINO TRANSFERASE 19 U/L (15-37); BILIRUBIN,TOTAL 0.4 MG/DL (0.2-1.0); BLOOD UREA NITROGEN 24 mg/dL (7-18); CALCIUM 9.4 MG/DL (8.5-10.1); CARBON DIOXIDE 30 MMOL/L (21-32); CHLORIDE 104 MMOL/L (98-107); CHOLESTEROL 164 MG/DL (< 200); HDL CHOLESTEROL 118 MG/DL (40-60); SODIUM 142 MMOL/L (136-145); TRIGLYCERIDES 32 MG/DL (30-150)
[2017-05-16] MEDS: Heparin 5000 units/ml inj SUBQ SCH ×2 (09:16→21:16)
[2017-05-16] MEDS: Levemir Flexpen SUBQ SCH (09:22)
--- NOTE | 2017-05-16 11:10 | Pulmonology Progress Note ---
Assessment/Plan Problems: (1) Hyperglycemia due to type 1 diabetes mellitus (2) Seizure disorder (3) HTN (hypertension) (4) History of CVA (cerebrovascular accident) (5) Behavioral disorder (6) Diabetes (7) Psychosis Subjective ROS Limited/Unobtainable: No Allergies: Coded Allergies: No Known Allergies (Unverified , 05/07/17) Objective Last 24 Hour Vital Signs Date Time Temp Pulse Resp B/P (MAP) Pulse Ox O2 Delivery O2 Flow Rate FiO2 05/16/17 09:02 124/63 05/16/17 09:01 58 124/63 05/16/17 09:00 96.1 68 19 136/78 100 05/16/17 04:03 97.3 58 20 124/63 99 Room Air 05/15/17 23:54 97.3 65 20 139/70 99 05/15/17 20:46 97.3 64 20 103/75 97 05/15/17 16:04 97.3 59 20 142/67 99 Room Air 05/15/17 12:15 97.3 80 21 114/60 97 Room Air Intake and Output 05/15/17 05/16/17 19:00 07:00 Intake Total 1360 ml 2080 ml Balance 1360 ml 2080 ml Intake Oral 960 ml 1080 ml IV Total 400 ml 1000 ml # Voids 3 5 # Bowel Movements 1 Objective General Appearance: no apparent distress Head: normocephalic, atraumatic Eyes: bilateral eye PERRL, bilateral eye EOMI ENT: normal pharynx, no angioedema Neck: supple, thyroid normal Respiratory: lungs clear, normal breath sounds Cardiovascular #1: regular rate, rhythm Gastrointestinal: non tender, soft Laboratory Tests 05/16/17 07:05: White Blood Count 7.7, Red Blood Count 4.07L, Hemoglobin 11.8L, Hematocrit 35.2L , Mean Corpuscular Volume 86, Mean Corpuscular Hemoglobin 29.0, Mean Corpuscular Hemoglobin Concent 33.5, Red Cell Distribution Width 14.2, Platelet Count 304, Mean Platelet Volume 6.8, Neutrophils (%) (Auto) 78.1H, Lymphocytes ( %) (Auto) 14.0L, Monocytes (%) (Auto) 7.0, Eosinophils (%) (Auto) 0.5, Basophils (%) (Auto) 0.3, Sodium Level 142, Potassium Level 4.0, Chloride Level 104, Carbon Dioxide Level 30, Anion Gap 8, Blood Urea Nitrogen 24H, Creatinine 1.0, Estimat Glomerular Filtration Rate > 60, Glucose Level 114H, Hemoglobin A1c 10.0H, Calcium Level 9.4, Total Bilirubin 0.4, Aspartate Amino Transf (AST/ SGOT) 19, Alanine Aminotransferase (ALT/SGPT) 24, Alkaline Phosphatase 144H, Total Protein 7.2, Albumin 2.8L, Globulin 4.4, Albumin/Globulin Ratio 0.6L, Triglycerides Level 32, Cholesterol Level 164, LDL Cholesterol 45, HDL Cholesterol 118H, Cholesterol/HDL Ratio 1.4L, Thyroid Stimulating Hormone (TSH) 2.100 Current Medications Medications (Trade) Dose Ordered Sig/Christine Route PRN Reason Start Time Stop Time Status Last Admin Dose Admin Acetaminophen (Tylenol) 650 mg Q4H PRN ORAL fever 05/15/17 06:30 06/14/17 06:29 Al Hydroxide/Mg Hydroxide (Mylanta II) 30 ml Q6H PRN ORAL dyspepsia 05/15/17 06:30 06/14/17 06:29 Albuterol/ Ipratropium (Albuterol/ Ipratropium) 3 ml Q4H PRN HHN Shortness of Breath 05/15/17 06:30 05/20/17 06:29 Amlodipine Besylate (Norvasc) 10 mg DAILY ORAL 05/15/17 09:00 06/14/17 08:59 05/16/17 09:01 Clonidine HCl (Catapres Tab) 0.1 mg Q4H PRN ORAL sbp more than 160 05/15/17 06:30 06/14/17 06:29 Dextrose (Dextrose 50%) STAT PRN IV Hypoglycemia 05/15/17 06:30 06/14/17 06:29 05/16/17 05:42 Divalproex Sodium (Depakote) 1,000 mg EVERY 12 HOURS ORAL 05/15/17 21:00 06/14/17 20:59 05/16/17 09:01 Heparin Sodium (Porcine) (Heparin 5000 units/ml) 5,000 units EVERY 12 HOURS SUBQ 05/15/17 09:00 06/14/17 08:59 05/16/17 09:16 Insulin Aspart (NovoLOG) BEFORE MEALS AND HS SUBQ 05/15/17 06:30 06/14/17 06:29 05/15/17 22:12 Insulin Aspart (NovoLOG) 5 units NOVOTIAC SUBQ 05/16/17 11:50 06/15/17 11:49 Insulin Detemir (Levemir) 15 units EVERY 12 HOURS SUBQ 05/15/17 09:00 06/14/17 08:59 05/16/17 09:22 Ketorolac Tromethamine (Toradol 30mg) 30 mg Q6H PRN IV moderate pain 4-6 05/15/17 06:30 05/20/17 06:29 Levetiracetam (Keppra) 750 mg TWICE A DAY ORAL 05/15/17 09:00 06/14/17 08:59 05/16/17 09:01 Lisinopril (Zestril) 5 mg DAILY ORAL 05/15/17 09:00 06/14/17 08:59 05/16/17 09:02 Lorazepam (Ativan) 2 mg Q6H PRN ORAL For Anxiety 05/15/17 11:00 05/22/17 10:59 05/15/17 19:05 Morphine Sulfate (Morphine Sulfate) 2 mg Q4H PRN IVP severe pain 7-10 05/15/17 06:30 05/22/17 06:29 Nitroglycerin (Ntg) 0.4 mg Q5M X 3 DOSES PRN SL Prn Chest Pain 05/15/17 06:30 06/14/17 06:29 Ondansetron HCl (Zofran) 4 mg Q6H PRN IVP Nausea & Vomiting 05/15/17 06:30 06/14/17 06:29 05/15/17 09:49 Polyethylene Glycol (Miralax) 17 gm HSPRN PRN ORAL Constipation 05/15/17 06:30 06/14/17 06:29 Risperidone (RisperDAL) 3 mg BID ORAL 05/15/17 18:00 06/14/17 20:59 05/16/17 09:04 Sodium Chloride 1,000 ml @ 100 mls/hr Q10H IVLG 05/15/17 06:26 06/14/17 06:25 05/16/17 02:57 Temazepam (Restoril) 15 mg HSPRN PRN ORAL Insomnia 05/15/17 06:30 2/17/18 06:29 MAYRA GUTIERREZ May 16, 2017 11:10
[2017-05-16 12:00] VITALS: BP 141/77
[2017-05-16 16:00] VITALS: BP 142/74
--- NOTE | 2017-05-16 16:15 | Consultation ---
DATE OF CONSULTATION: 05/16/2017 ENDOCRINOLOGY CONSULTATION CONSULTING PHYSICIAN: Tanvir Galindo M.D. REFERRING PHYSICIAN: Roxane Quijano M.D. REASON FOR CONSULTATION: Diabetic management. HISTORY OF PRESENT ILLNESS: The patient is a 61-year-old male with underlying psychiatric illness, schizophrenia, a resident of a shelter facility, she has hx of diabetes who presents to the hospital for behavior complaint. The patient's blood glucose was elevated, therefore, Endocrinology was consulted in order to assist in the management of diabetes. PAST MEDICAL HISTORY: 1. Diabetes, on insulin. 2. Hypertension. 3. Seizure disorder. 4. CVA. 5. UTI. 6. Alcohol abuse. 7. Psychosis. MEDICATIONS: As an outpatient reviewed and reconciled. REVIEW OF SYSTEMS: Difficult to obtain. PHYSICAL EXAMINATION: VITAL SIGNS: Blood pressure is 150/80, pulse of 80, temperature 98.2 degrees and respiratory rate 18. HEENT: Pupils are equal and reactive to light and accommodation. Sclerae are anicteric. NECK: No JVD. LUNGS: Clear. HEART: Regular. ABDOMEN: Positive bowel sounds. Soft. EXTREMITIES: No clubbing, cyanosis, or edema. LABORATORY AND DIAGNOSTIC DATA: WBC 5, hemoglobin 11, hematocrit 33 and platelets of 289. Sodium is 139, potassium 4.1, chloride 92, bicarbonate 32, BUN 22, creatinine 1.0, and glucose 245. A1c of 10. TSH is 1.9. DIAGNOSES: 1. Diabetes, out of control. 2. Psychosis. PLAN: 1. Levemir 15 units b.i.d. 2. NovoLog insulin sliding scale. 3. Add NovoLog 5 units before each meal. 4. Further adjustment according to blood glucose values. Thank you, Dr. Quijano, for request of this consultation. Tanvir Galindo M.D. DR: ALEX JOB#: [id number] CC: JASON
[2017-05-16] MEDS: LORazepam 1mg tab ORAL PRN (18:06)
[2017-05-16] MEDS ORDERED: Haloperidol Decanoate 50mg Inj IM ONE (18:30)
[2017-05-16 20:00] VITALS: BP 136/69
[2017-05-16] MEDS ORDERED: Levemir Flexpen SUBQ SCH (21:00)
--- NOTE | 2017-05-16 23:14 | General Progress Note ---
Assessment/Plan Status: unchanged Assessment/Plan Assessment/Plan schizoaffective d/o DM -depakote -risperdal -haldol dec Subjective Neurologic/Psychiatric: Reports: anxiety, depressed, emotional problems Allergies: Coded Allergies: No Known Allergies (Unverified , 05/07/17) Objective Last 24 Hour Vital Signs Date Time Temp Pulse Resp B/P (MAP) Pulse Ox O2 Delivery O2 Flow Rate FiO2 05/16/17 20:00 97.6 65 18 136/69 100 Room Air 05/16/17 19:22 72 16 Room Air 05/16/17 16:00 97.1 66 18 142/74 100 05/16/17 12:00 97.2 66 19 141/77 100 05/16/17 09:02 124/63 05/16/17 09:01 58 124/63 05/16/17 09:00 96.1 68 19 136/78 100 05/16/17 08:50 68 16 Room Air 05/16/17 04:03 97.3 58 20 124/63 99 Room Air 05/15/17 23:54 97.3 65 20 139/70 99 Intake and Output 05/15/17 05/16/17 19:00 07:00 Intake Total 1360 ml 2080 ml Balance 1360 ml 2080 ml Intake Oral 960 ml 1080 ml IV Total 400 ml 1000 ml # Voids 3 5 # Bowel Movements 1 Laboratory Tests 05/16/17 07:05: White Blood Count 7.7, Red Blood Count 4.07L, Hemoglobin 11.8L, Hematocrit 35.2L , Mean Corpuscular Volume 86, Mean Corpuscular Hemoglobin 29.0, Mean Corpuscular Hemoglobin Concent 33.5, Red Cell Distribution Width 14.2, Platelet Count 304, Mean Platelet Volume 6.8, Neutrophils (%) (Auto) 78.1H, Lymphocytes ( %) (Auto) 14.0L, Monocytes (%) (Auto) 7.0, Eosinophils (%) (Auto) 0.5, Basophils (%) (Auto) 0.3, Sodium Level 142, Potassium Level 4.0, Chloride Level 104, Carbon Dioxide Level 30, Anion Gap 8, Blood Urea Nitrogen 24H, Creatinine 1.0, Estimat Glomerular Filtration Rate > 60, Glucose Level 114H, Hemoglobin A1c 10.0H, Calcium Level 9.4, Total Bilirubin 0.4, Aspartate Amino Transf (AST/ SGOT) 19, Alanine Aminotransferase (ALT/SGPT) 24, Alkaline Phosphatase 144H, Total Protein 7.2, Albumin 2.8L, Globulin 4.4, Albumin/Globulin Ratio 0.6L, Triglycerides Level 32, Cholesterol Level 164, LDL Cholesterol 45, HDL Cholesterol 118H, Cholesterol/HDL Ratio 1.4L, Thyroid Stimulating Hormone (TSH) 2.100 Height (Feet): 6 Height (Inches): 1.00 Weight (Pounds): 185 General Appearance: no apparent distress, alert, confused, agitated Marge Barrios M.D. May 16, 2017 23:14
--- NOTE | 2017-05-16 23:14 | Consultation ---
History of Present Illness General Date patient seen: May 15, 2017 Chief Complaint: Behavioral Complaint Present Illness HPI 61-year-old male who was just here for increasing psychosis and diabetes. the pt is delusional and is confused the pt is yelling and unable to provide hx. Im familiar with the pt the pt has been agitated and yelling Allergies: Coded Allergies: No Known Allergies (Unverified , 05/07/17) Medication History Scheduled Amlodipine Besylate* (Amlodipine Besylate*), 10 MG ORAL DAILY, (Reported) Aspirin* (Aspirin*), 81 MG ORAL DAILY, (Reported) Atorvastatin Calcium* (Atorvastatin Calcium*), 80 MG ORAL BEDTIME, (Reported) Divalproex Sodium (Divalproex Sodium), 500 MG ORAL EVERY 12 HOURS Divalproex Sodium* (Depakote Er*), 750 MG ORAL EVERY 12 HOURS, (Reported) Divalproex Sodium* (Depakote*), 750 MG PO Q12HR, (Reported) Docusate Sodium* (Colace*), 100 MG ORAL DAILY, (Reported) Insulin Detemir (Levemir Flexpen), 15 UNITS SUBQ BID Insulin Detemir (Levemir), 15 SUBQ Q12HR, (Reported) Levetiracetam (Keppra), 7.5 ML ORAL TWICE A DAY, (Reported) Lisinopril (Lisinopril*), 5 MG ORAL DAILY, (Reported) Magnesium Hydroxide* (Milk Of Magnesia*), 30 ML ORAL DAILY, (Reported) Metformin Hcl* (Metformin Hcl*), 500 MG ORAL TWICE A DAY, (Reported) Multivitamins* (Multivitamins*), 1 TAB ORAL DAILY, (Reported) Olanzapine* (Zyprexa*), 5 MG ORAL DAILY, (Reported) Polyethylene Glycol 3350* (Miralax*), 17 GM ORAL DAILY, (Reported) Risperidone* (Risperdal*), 2 MG ORAL BEDTIME Risperidone* (Risperdal*), 2 MG ORAL DAILY Risperidone* (Risperdal*), 4 MG ORAL QHS, (Reported) Risperidone* (Risperdal*), 2 MG ORAL DAILY, (Reported) Thiamine Hcl* (Vitamin B-1*), 100 MG ORAL DAILY, (Reported) Scheduled PRN Insulin Aspart* (Novolog*), 0 SUBQ for Per rx protocol, (Reported) Lorazepam* (Lorazepam*), 2 MG ORAL Q6HR PRN for Agitation, (Reported) Zolpidem Tartrate* (Ambien*), 5 MG ORAL HSPRN PRN Miscellaneous Medications Insulin Lispro (Humalog), 0 SUBQ, (Reported) Melatonin/Pyridoxine HCl (B6) (Melatonin 3 mg Tablet), 1 EACH PO, (Reported) Patient History Limited by: medical condition History Provided By: Patient, Medical Record, PMD Healthcare decision maker jeanmarie Resuscitation status Full Code Advanced Directive on File No Past Medical/Surgical History Past Medical/Surgical History: (1) Psychosis (2) Hyperglycemia due to type 1 diabetes mellitus (3) Diabetes (4) Seizure disorder (5) HTN (hypertension) (6) History of CVA (cerebrovascular accident) (7) Behavioral disorder Review of Systems Psychiatric: Reports: prior hx, anxiety, depressed feelings, emotional problems Physical Exam General Appearance: no apparent distress, alert, confused, agitated Last 24 Hour Vital Signs Date Time Temp Pulse Resp B/P (MAP) Pulse Ox O2 Delivery O2 Flow Rate FiO2 05/16/17 20:00 97.6 65 18 136/69 100 Room Air 05/16/17 19:22 72 16 Room Air 05/16/17 16:00 97.1 66 18 142/74 100 05/16/17 12:00 97.2 66 19 141/77 100 05/16/17 09:02 124/63 05/16/17 09:01 58 124/63 05/16/17 09:00 96.1 68 19 136/78 100 05/16/17 08:50 68 16 Room Air 05/16/17 04:03 97.3 58 20 124/63 99 Room Air 05/15/17 23:54 97.3 65 20 139/70 99 Intake and Output 05/15/17 05/16/17 19:00 07:00 Intake Total 1360 ml 2080 ml Balance 1360 ml 2080 ml Intake Oral 960 ml 1080 ml IV Total 400 ml 1000 ml # Voids 3 5 # Bowel Movements 1 Laboratory Tests Test 05/16/17 07:05 White Blood Count 7.7 K/UL (4.8-10.8) Red Blood Count 4.07 M/UL (4.70-6.10) L Hemoglobin 11.8 G/DL (14.2-18.0) L Hematocrit 35.2 % (42.0-52.0) L Mean Corpuscular Volume 86 FL (80-99) Mean Corpuscular Hemoglobin 29.0 PG (27.0-31.0) Mean Corpuscular Hemoglobin Concent 33.5 G/DL (32.0-36.0) Red Cell Distribution Width 14.2 % (11.6-14.8) Platelet Count 304 K/UL (150-450) Mean Platelet Volume 6.8 FL (6.5-10.1) Neutrophils (%) (Auto) 78.1 % (45.0-75.0) H Lymphocytes (%) (Auto) 14.0 % (20.0-45.0) L Monocytes (%) (Auto) 7.0 % (1.0-10.0) Eosinophils (%) (Auto) 0.5 % (0.0-3.0) Basophils (%) (Auto) 0.3 % (0.0-2.0) Sodium Level 142 MMOL/L (136-145) Potassium Level 4.0 MMOL/L (3.5-5.1) Chloride Level 104 MMOL/L (98-107) Carbon Dioxide Level 30 MMOL/L (21-32) Anion Gap 8 mmol/L (5-15) Blood Urea Nitrogen 24 mg/dL (7-18) H Creatinine 1.0 MG/DL (0.55-1.30) Estimat Glomerular Filtration Rate > 60 mL/min (>60) Glucose Level 114 MG/DL (74-106) H Hemoglobin A1c 10.0 % (4.3-6.0) H Calcium Level 9.4 MG/DL (8.5-10.1) Total Bilirubin 0.4 MG/DL (0.2-1.0) Aspartate Amino Transf (AST/SGOT) 19 U/L (15-37) Alanine Aminotransferase (ALT/SGPT) 24 U/L (12-78) Alkaline Phosphatase 144 U/L (46-116) H Total Protein 7.2 G/DL (6.4-8.2) Albumin 2.8 G/DL (3.4-5.0) L Globulin 4.4 g/dL Albumin/Globulin Ratio 0.6 (1.0-2.7) L Triglycerides Level 32 MG/DL (30-150) Cholesterol Level 164 MG/DL (< 200) LDL Cholesterol 45 mg/dL (<100) HDL Cholesterol 118 MG/DL (40-60) H Cholesterol/HDL Ratio 1.4 (3.3-4.4) L Thyroid Stimulating Hormone (TSH) 2.100 uiU/mL (0.358-3.740) Height (Feet): 6 Height (Inches): 1.00 Weight (Pounds): 185 Medications Current Medications Medications (Trade) Dose Ordered Sig/Christine Route PRN Reason Start Time Stop Time Status Last Admin Dose Admin Acetaminophen (Tylenol) 650 mg Q4H PRN ORAL fever 05/15/17 06:30 06/14/17 06:29 Al Hydroxide/Mg Hydroxide (Mylanta II) 30 ml Q6H PRN ORAL dyspepsia 05/15/17 06:30 06/14/17 06:29 Albuterol/ Ipratropium (Albuterol/ Ipratropium) 3 ml Q4H PRN HHN Shortness of Breath 05/15/17 06:30 05/20/17 06:29 Amlodipine Besylate (Norvasc) 10 mg DAILY ORAL 05/15/17 09:00 06/14/17 08:59 05/16/17 09:01 Clonidine HCl (Catapres Tab) 0.1 mg Q4H PRN ORAL sbp more than 160 05/15/17 06:30 06/14/17 06:29 Dextrose (Dextrose 50%) STAT PRN IV Hypoglycemia 05/15/17 06:30 06/14/17 06:29 05/16/17 23:08 Divalproex Sodium (Depakote) 1,000 mg EVERY 12 HOURS ORAL 05/15/17 21:00 06/14/17 20:59 05/16/17 21:14 Heparin Sodium (Porcine) (Heparin 5000 units/ml) 5,000 units EVERY 12 HOURS SUBQ 05/15/17 09:00 06/14/17 08:59 05/16/17 21:16 Insulin Aspart (NovoLOG) BEFORE MEALS AND HS SUBQ 05/15/17 06:30 06/14/17 06:29 05/15/17 22:12 Insulin Detemir (Levemir) 8 units EVERY 12 HOURS SUBQ 05/16/17 21:00 06/15/17 20:59 Ketorolac Tromethamine (Toradol 30mg) 30 mg Q6H PRN IV moderate pain 4-6 05/15/17 06:30 05/20/17 06:29 Levetiracetam (Keppra) 750 mg TWICE A DAY ORAL 05/15/17 09:00 06/14/17 08:59 05/16/17 18:05 Lisinopril (Zestril) 5 mg DAILY ORAL 05/15/17 09:00 06/14/17 08:59 05/16/17 09:02 Lorazepam (Ativan) 2 mg Q6H PRN ORAL For Anxiety 05/15/17 11:00 05/22/17 10:59 05/16/17 18:06 Morphine Sulfate (Morphine Sulfate) 2 mg Q4H PRN IVP severe pain 7-10 05/15/17 06:30 05/22/17 06:29 Nitroglycerin (Ntg) 0.4 mg Q5M X 3 DOSES PRN SL Prn Chest Pain 05/15/17 06:30 06/14/17 06:29 Ondansetron HCl (Zofran) 4 mg Q6H PRN IVP Nausea & Vomiting 05/15/17 06:30 06/14/17 06:29 05/15/17 09:49 Polyethylene Glycol (Miralax) 17 gm HSPRN PRN ORAL Constipation 05/15/17 06:30 06/14/17 06:29 Risperidone (RisperDAL) 3 mg BID ORAL 05/15/17 18:00 06/14/17 20:59 05/16/17 18:05 Sodium Chloride 1,000 ml @ 100 mls/hr Q10H IVLG 05/15/17 06:26 06/14/17 06:25 05/16/17 12:00 Temazepam (Restoril) 15 mg HSPRN PRN ORAL Insomnia 05/15/17 06:30 05/22/17 06:29 Assessment/Plan Status: not improved Assessment/Plan schizoaffective d/o DM -depakote -risperdal -haldol Marge Mari M.D. May 16, 2017 23:14
[2017-05-17] VITALS (7 sets, daily range): BP systolic 123–159; BP diastolic 76–98
[2017-05-17] MEDS: NovoLOG Insulin Flexpen SUBQ SCH ×4 (06:30→21:34)
--- NOTE | 2017-05-17 08:13 | General Progress Note ---
Assessment/Plan Problem List: (1) Diabetes ICD Codes: E11.9 - Type 2 diabetes mellitus without complications SNOMED: 53714004 (2) Seizure disorder ICD Codes: G40.909 - Epilepsy, unspecified, not intractable, without status epilepticus SNOMED: 009945008 (3) HTN (hypertension) ICD Codes: I10 - Essential (primary) hypertension SNOMED: 30428748 (4) Psychosis ICD Codes: F29 - Unspecified psychosis not due to a substance or known physiological condition SNOMED: 22218990, 44229439 Qualifiers: Qualified Codes: F23 - Brief psychotic disorder (5) History of CVA (cerebrovascular accident) ICD Codes: Z86.73 - Personal history of transient ischemic attack (TIA), and cerebral infarction without residual deficits SNOMED: 126507679 (6) Behavioral disorder SNOMED: 664088238 Assessment/Plan DC scheduled Levemir and Novolog continue with NISS only Subjective Allergies: Coded Allergies: No Known Allergies (Unverified , 05/07/17) All Systems: reviewed and negative except above Subjective events noted BG values on lower side appetite is poor Item Value Date Time Bedside Blood Glucose 75 mg/dl 05/17/17 0635 Bedside Blood Glucose 102 mg/dl 05/17/17 0000 Bedside Blood Glucose 102 mg/dl 05/16/17 2157 Bedside Blood Glucose 175 mg/dl H 05/16/17 1700 Bedside Blood Glucose 72 mg/dl 05/16/17 1150 Bedside Blood Glucose 129 mg/dl H 05/16/17 0922 Bedside Blood Glucose 129 mg/dl H 05/16/17 0630 Objective Last 24 Hour Vital Signs Date Time Temp Pulse Resp B/P (MAP) Pulse Ox O2 Delivery O2 Flow Rate FiO2 05/17/17 07:25 63 16 Room Air 05/17/17 03:32 98.9 73 18 123/77 98 05/17/17 00:00 98.9 69 18 149/87 99 Room Air 05/16/17 20:00 97.6 65 18 136/69 100 Room Air 05/16/17 19:22 72 16 Room Air 05/16/17 16:00 97.1 66 18 142/74 100 05/16/17 12:00 97.2 66 19 141/77 100 05/16/17 09:02 124/63 05/16/17 09:01 58 124/63 05/16/17 09:00 96.1 68 19 136/78 100 05/16/17 08:50 68 16 Room Air Intake and Output 05/16/17 05/17/17 19:00 07:00 Intake Total 1060 ml 1580 ml Balance 1060 ml 1580 ml Intake Oral 360 ml 480 ml IV Total 700 ml 1100 ml # Voids 4 # Bowel Movements 2 Height (Feet): 6 Height (Inches): 1.00 Weight (Pounds): 185 General Appearance: no apparent distress Neck: normal alignment Cardiovascular: regular rhythm Respiratory/Chest: lungs clear Abdomen: normal bowel sounds Objective Current Medications Medications (Trade) Dose Ordered Sig/Christine Route PRN Reason Start Time Stop Time Status Last Admin Dose Admin Acetaminophen (Tylenol) 650 mg Q4H PRN ORAL fever 05/15/17 06:30 06/14/17 06:29 Al Hydroxide/Mg Hydroxide (Mylanta II) 30 ml Q6H PRN ORAL dyspepsia 05/15/17 06:30 06/14/17 06:29 Albuterol/ Ipratropium (Albuterol/ Ipratropium) 3 ml Q4H PRN HHN Shortness of Breath 05/15/17 06:30 05/20/17 06:29 Amlodipine Besylate (Norvasc) 10 mg DAILY ORAL 05/15/17 09:00 06/14/17 08:59 05/16/17 09:01 Clonidine HCl (Catapres Tab) 0.1 mg Q4H PRN ORAL sbp more than 160 05/15/17 06:30 06/14/17 06:29 Dextrose (Dextrose 50%) STAT PRN IV Hypoglycemia 05/15/17 06:30 06/14/17 06:29 05/16/17 23:08 Divalproex Sodium (Depakote) 1,000 mg EVERY 12 HOURS ORAL 05/15/17 21:00 06/14/17 20:59 05/16/17 21:14 Heparin Sodium (Porcine) (Heparin 5000 units/ml) 5,000 units EVERY 12 HOURS SUBQ 05/15/17 09:00 06/14/17 08:59 05/16/17 21:16 Insulin Aspart (NovoLOG) BEFORE MEALS AND HS SUBQ 05/15/17 06:30 06/14/17 06:29 05/15/17 22:12 Insulin Detemir (Levemir) 8 units EVERY 12 HOURS SUBQ 05/16/17 21:00 06/15/17 20:59 Ketorolac Tromethamine (Toradol 30mg) 30 mg Q6H PRN IV moderate pain 4-6 05/15/17 06:30 05/20/17 06:29 Levetiracetam (Keppra) 750 mg TWICE A DAY ORAL 05/15/17 09:00 06/14/17 08:59 05/16/17 18:05 Lisinopril (Zestril) 5 mg DAILY ORAL 05/15/17 09:00 06/14/17 08:59 05/16/17 09:02 Lorazepam (Ativan) 2 mg Q6H PRN ORAL For Anxiety 05/15/17 11:00 05/22/17 10:59 05/16/17 18:06 Morphine Sulfate (Morphine Sulfate) 2 mg Q4H PRN IVP severe pain 7-10 05/15/17 06:30 05/22/17 06:29 Nitroglycerin (Ntg) 0.4 mg Q5M X 3 DOSES PRN SL Prn Chest Pain 05/15/17 06:30 06/14/17 06:29 Ondansetron HCl (Zofran) 4 mg Q6H PRN IVP Nausea & Vomiting 05/15/17 06:30 06/14/17 06:29 05/15/17 09:49 Polyethylene Glycol (Miralax) 17 gm HSPRN PRN ORAL Constipation 05/15/17 06:30 06/14/17 06:29 Risperidone (RisperDAL) 3 mg BID ORAL 05/15/17 18:00 06/14/17 20:59 05/16/17 18:05 Sodium Chloride 1,000 ml @ 100 mls/hr Q10H IVLG 05/15/17 06:26 06/14/17 06:25 05/17/17 00:30 Temazepam (Restoril) 15 mg HSPRN PRN ORAL Insomnia 05/15/17 06:30 05/22/17 06:29 TAMMY CHAPINb 12, 2018 08:13
[2017-05-17] MEDS: levETIRAcetam 500mg/5ml Liquid ORAL SCH ×2 (09:00→17:56)
[2017-05-17] MEDS: Depakote 500mg tab ORAL SCH ×2 (09:00→21:28)
[2017-05-17] MEDS: Heparin 5000 units/ml inj SUBQ SCH ×2 (09:00→21:30)
[2017-05-17] MEDS: Lisinopril 2.5mg tab ORAL SCH (09:00)
--- NOTE | 2017-05-17 17:56 | Pulmonology Progress Note ---
Assessment/Plan Problems: (1) Hyperglycemia due to type 1 diabetes mellitus (2) Seizure disorder (3) HTN (hypertension) (4) History of CVA (cerebrovascular accident) (5) Behavioral disorder (6) Diabetes (7) Psychosis Assessment/Plan sliding scale psych f/u check electrolytes dc planning Subjective ROS Limited/Unobtainable: No Allergies: Coded Allergies: No Known Allergies (Unverified , 05/07/17) Objective Last 24 Hour Vital Signs Date Time Temp Pulse Resp B/P (MAP) Pulse Ox O2 Delivery O2 Flow Rate FiO2 05/17/17 15:37 97.3 61 19 155/80 98 05/17/17 12:00 97.2 62 19 143/82 99 05/17/17 09:00 158/96 05/17/17 08:00 97.2 70 19 158/96 99 05/17/17 07:25 63 16 Room Air 05/17/17 03:32 98.9 73 18 123/77 98 05/17/17 00:00 98.9 69 18 149/87 99 Room Air 05/16/17 20:00 97.6 65 18 136/69 100 Room Air 05/16/17 19:22 72 16 Room Air Intake and Output 05/16/17 05/17/17 19:00 07:00 Intake Total 1060 ml 1580 ml Balance 1060 ml 1580 ml Intake Oral 360 ml 480 ml IV Total 700 ml 1100 ml # Voids 4 # Bowel Movements 2 Objective General Appearance: no apparent distress Head: normocephalic, atraumatic Eyes: bilateral eye PERRL, bilateral eye EOMI ENT: normal pharynx, no angioedema Neck: supple, thyroid normal Respiratory: lungs clear, normal breath sounds Cardiovascular #1: regular rate, rhythm Gastrointestinal: non tender, soft Laboratory Tests 05/17/17 09:00: Valproic Acid (Depakene) Level 47L Current Medications Medications (Trade) Dose Ordered Sig/Christine Route PRN Reason Start Time Stop Time Status Last Admin Dose Admin Acetaminophen (Tylenol) 650 mg Q4H PRN ORAL fever 05/15/17 06:30 06/14/17 06:29 Al Hydroxide/Mg Hydroxide (Mylanta II) 30 ml Q6H PRN ORAL dyspepsia 05/15/17 06:30 06/14/17 06:29 Albuterol/ Ipratropium (Albuterol/ Ipratropium) 3 ml Q4H PRN HHN Shortness of Breath 05/15/17 06:30 05/20/17 06:29 Amlodipine Besylate (Norvasc) 10 mg DAILY ORAL 05/15/17 09:00 06/14/17 08:59 05/16/17 09:01 Clonidine HCl (Catapres Tab) 0.1 mg Q4H PRN ORAL sbp more than 160 05/15/17 06:30 06/14/17 06:29 Dextrose (Dextrose 50%) STAT PRN IV Hypoglycemia 05/15/17 06:30 06/14/17 06:29 05/16/17 23:08 Divalproex Sodium (Depakote) 1,000 mg EVERY 12 HOURS ORAL 05/15/17 21:00 06/14/17 20:59 05/16/17 21:14 Heparin Sodium (Porcine) (Heparin 5000 units/ml) 5,000 units EVERY 12 HOURS SUBQ 05/15/17 09:00 06/14/17 08:59 05/16/17 21:16 Insulin Aspart (NovoLOG) BEFORE MEALS AND HS SUBQ 05/15/17 06:30 06/14/17 06:29 05/17/17 16:54 Ketorolac Tromethamine (Toradol 30mg) 30 mg Q6H PRN IV moderate pain 4-6 05/15/17 06:30 05/20/17 06:29 Levetiracetam (Keppra) 750 mg TWICE A DAY ORAL 05/15/17 09:00 06/14/17 08:59 05/16/17 18:05 Lisinopril (Zestril) 5 mg DAILY ORAL 05/15/17 09:00 06/14/17 08:59 05/16/17 09:02 Lorazepam (Ativan) 2 mg Q6H PRN ORAL For Anxiety 05/15/17 11:00 05/22/17 10:59 05/16/17 18:06 Morphine Sulfate (Morphine Sulfate) 2 mg Q4H PRN IVP severe pain 7-10 05/15/17 06:30 05/22/17 06:29 Nitroglycerin (Ntg) 0.4 mg Q5M X 3 DOSES PRN SL Prn Chest Pain 05/15/17 06:30 06/14/17 06:29 Ondansetron HCl (Zofran) 4 mg Q6H PRN IVP Nausea & Vomiting 05/15/17 06:30 06/14/17 06:29 05/15/17 09:49 Polyethylene Glycol (Miralax) 17 gm HSPRN PRN ORAL Constipation 05/15/17 06:30 06/14/17 06:29 Risperidone (RisperDAL) 3 mg BID ORAL 05/15/17 18:00 06/14/17 20:59 05/16/17 18:05 Sodium Chloride 1,000 ml @ 100 mls/hr Q10H IVLG 05/15/17 06:26 06/14/17 06:25 05/17/17 14:24 Temazepam (Restoril) 15 mg HSPRN PRN ORAL Insomnia 05/15/17 06:30 05/22/17 06:29 MAYRA GUTIERREZ May 17, 2017 17:56
[2017-05-17] MEDS: LORazepam 1mg tab ORAL PRN (18:31)
--- NOTE | 2017-05-17 20:45 | Progress Note ---
DATE: 05/17/2017 SUBJECTIVE: The patient is calmer, not yelling today. He is still illogical and disorganized. He is compliant with medication. MENTAL STATUS EXAMINATION: The patient is alert and confused. Mood is neutral during the evaluation, however, tends to be agitated and affect is constricted, congruent with mood. Thought process is concrete. Thought content, no suicidal or homicidal ideations. ASSESSMENT: 1. Agitation. 2. Schizoaffective disorder. PLAN: We will continue current medications. Marge Barrios M.D. DR: ALFONZO JOB#: [id number] CC:
[2017-05-18 04:00] VITALS: BP 135/78
[2017-05-18] MEDS: NovoLOG Insulin Flexpen SUBQ SCH ×8 (06:21→21:43)
[2017-05-18 08:03] VITALS: BP 159/87
[2017-05-18] MEDS: Lisinopril 2.5mg tab ORAL SCH (09:24)
[2017-05-18] MEDS: Depakote 500mg tab ORAL SCH ×2 (09:24→21:37)
[2017-05-18] MEDS: levETIRAcetam 500mg/5ml Liquid ORAL SCH ×2 (09:25→17:17)
[2017-05-18] MEDS: Heparin 5000 units/ml inj SUBQ SCH ×2 (09:28→21:42)
[2017-05-18] MEDS: Levemir Flexpen SUBQ SCH (09:33)
[2017-05-18 12:00] VITALS: BP 151/89
[2017-05-18] MEDS: LORazepam 1mg tab ORAL PRN ×2 (15:21→23:49)
[2017-05-18 15:22] VITALS: BP 166/113
--- NOTE | 2017-05-18 16:16 | Pulmonology Progress Note ---
Assessment/Plan Problems: (1) Hyperglycemia due to type 1 diabetes mellitus (2) Seizure disorder (3) HTN (hypertension) (4) History of CVA (cerebrovascular accident) (5) Behavioral disorder (6) Diabetes (7) Psychosis Assessment/Plan sliding scale psych f/u check electrolytes dc planning Subjective ROS Limited/Unobtainable: No Constitutional: Reports: no symptoms HEENT: Repors: no symptoms Allergies: Coded Allergies: No Known Allergies (Unverified , 05/07/17) Objective Last 24 Hour Vital Signs Date Time Temp Pulse Resp B/P (MAP) Pulse Ox O2 Delivery O2 Flow Rate FiO2 05/18/17 15:22 163/100 05/18/17 15:22 98.0 103 20 166/113 100 05/18/17 12:00 98.1 81 20 151/89 100 05/18/17 09:25 69 159/87 05/18/17 09:24 159/87 05/18/17 08:34 67 16 Room Air 05/18/17 08:03 97.3 69 20 159/87 95 05/18/17 04:00 96.6 63 19 135/78 100 Room Air 05/17/17 23:08 97.0 64 20 147/76 100 Room Air 05/17/17 19:12 97.7 89 20 159/98 98 Room Air Intake and Output 05/17/17 05/18/17 19:00 07:00 Intake Total 1180 ml 1700 ml Balance 1180 ml 1700 ml Intake Oral 480 ml 600 ml IV Total 700 ml 1100 ml # Voids 5 # Bowel Movements 1 1 Objective General Appearance: no apparent distress Head: normocephalic, atraumatic Eyes: bilateral eye PERRL, bilateral eye EOMI ENT: normal pharynx, no angioedema Neck: supple, thyroid normal Respiratory: lungs clear, normal breath sounds Cardiovascular #1: regular rate, rhythm Gastrointestinal: non tender, soft Current Medications Medications (Trade) Dose Ordered Sig/Christine Route PRN Reason Start Time Stop Time Status Last Admin Dose Admin Acetaminophen (Tylenol) 650 mg Q4H PRN ORAL fever 05/15/17 06:30 06/14/17 06:29 Al Hydroxide/Mg Hydroxide (Mylanta II) 30 ml Q6H PRN ORAL dyspepsia 05/15/17 06:30 06/14/17 06:29 Albuterol/ Ipratropium (Albuterol/ Ipratropium) 3 ml Q4H PRN HHN Shortness of Breath 05/15/17 06:30 05/20/17 06:29 Amlodipine Besylate (Norvasc) 10 mg DAILY ORAL 05/15/17 09:00 06/14/17 08:59 05/18/17 09:25 Clonidine HCl (Catapres Tab) 0.1 mg Q4H PRN ORAL sbp more than 160 05/15/17 06:30 06/14/17 06:29 05/18/17 15:22 Dextrose (Dextrose 50%) STAT PRN IV Hypoglycemia 05/18/17 07:30 06/17/17 07:29 Divalproex Sodium (Depakote) 1,000 mg EVERY 12 HOURS ORAL 05/15/17 21:00 06/14/17 20:59 05/18/17 09:24 Heparin Sodium (Porcine) (Heparin 5000 units/ml) 5,000 units EVERY 12 HOURS SUBQ 05/15/17 09:00 06/14/17 08:59 05/18/17 09:28 Insulin Aspart (NovoLOG) BEFORE MEALS AND HS SUBQ 05/15/17 06:30 06/14/17 06:29 05/18/17 12:50 Insulin Aspart (NovoLOG) 4 units NOVOTIAC SUBQ 05/18/17 07:30 06/17/17 07:29 05/18/17 11:50 Insulin Detemir (Levemir) 8 units DAILY SUBQ 05/18/17 09:00 06/17/17 08:59 05/18/17 09:33 Ketorolac Tromethamine (Toradol 30mg) 30 mg Q6H PRN IV moderate pain 4-6 05/15/17 06:30 05/20/17 06:29 Levetiracetam (Keppra) 750 mg TWICE A DAY ORAL 05/15/17 09:00 06/14/17 08:59 05/18/17 09:25 Lisinopril (Zestril) 5 mg DAILY ORAL 05/15/17 09:00 06/14/17 08:59 05/18/17 09:24 Lorazepam (Ativan) 1 mg Q6H PRN ORAL For Anxiety 05/17/17 23:00 05/24/17 22:59 05/18/17 15:21 Morphine Sulfate (Morphine Sulfate) 2 mg Q4H PRN IVP severe pain 7-10 05/15/17 06:30 05/22/17 06:29 Nitroglycerin (Ntg) 0.4 mg Q5M X 3 DOSES PRN SL Prn Chest Pain 05/15/17 06:30 06/14/17 06:29 Ondansetron HCl (Zofran) 4 mg Q6H PRN IVP Nausea & Vomiting 05/15/17 06:30 06/14/17 06:29 05/15/17 09:49 Polyethylene Glycol (Miralax) 17 gm HSPRN PRN ORAL Constipation 05/15/17 06:30 06/14/17 06:29 Risperidone (RisperDAL) 3 mg BID ORAL 05/15/17 18:00 06/14/17 20:59 05/18/17 09:25 Sodium Chloride 1,000 ml @ 100 mls/hr Q10H IVLG 05/15/17 06:26 06/14/17 06:25 05/18/17 12:43 Temazepam (Restoril) 15 mg HSPRN PRN ORAL Insomnia 05/15/17 06:30 05/22/17 06:29 MAYRA GUTIERREZ May 18, 2017 16:16
[2017-05-18 19:50] VITALS: BP 158/88
[2017-05-19] VITALS: BP 151/72
[2017-05-19] MEDS: NovoLOG Insulin Flexpen SUBQ SCH ×7 (06:34→21:25)
[2017-05-19 07:36] LABS: ALANINE AMINOTRANSFERASE 27 U/L (12-78); ALBUMIN 2.6 G/DL (3.4-5.0); ALBUMIN/GLOBULIN RATIO 0.6 (1.0-2.7); ALKALINE PHOSPHATASE 139 U/L (46-116); ANION GAP 6 mmol/L (5-15); ASPARTATE AMINO TRANSFERASE 20 U/L (15-37); BILIRUBIN,TOTAL 0.3 MG/DL (0.2-1.0); BLOOD UREA NITROGEN 11 mg/dL (7-18); CALCIUM 9.3 MG/DL (8.5-10.1); CARBON DIOXIDE 30 MMOL/L (21-32); CHLORIDE 105 MMOL/L (98-107); CREATININE 0.7 MG/DL (0.55-1.30); PHOSPHORUS 3.2 MG/DL (2.5-4.9); POTASSIUM 4.1 MMOL/L (3.5-5.1); SODIUM 141 MMOL/L (136-145)
[2017-05-19 07:47] LABS: HEMATOCRIT 37.2 % (42.0-52.0); HEMOGLOBIN 11.9 G/DL (14.2-18.0); MEAN CORPUSCULAR VOLUME 87 FL (80-99); PLATELET COUNT 229 K/UL (150-450); RED BLOOD COUNT 4.28 M/UL (4.70-6.10); RED CELL DISTRIBUTION WIDTH 14.4 % (11.6-14.8); WHITE BLOOD COUNT 3.5 K/UL (4.8-10.8)
[2017-05-19 07:48] LABS: BASOPHILS % (AUTO) 1.2 % (0.0-2.0); EOSINOPHILS % (AUTO) 1.5 % (0.0-3.0); LYMPHOCYTES % (AUTO) 32.6 % (20.0-45.0); MONOCYTES % (AUTO) 7.3 % (1.0-10.0); NEUTROPHILS % (AUTO) 57.5 % (45.0-75.0)
[2017-05-19 08:00] VITALS: BP 151/82
[2017-05-19] MEDS: levETIRAcetam 500mg/5ml Liquid ORAL SCH ×2 (09:09→16:45)
[2017-05-19] MEDS: Lisinopril 2.5mg tab ORAL SCH (09:14)
[2017-05-19] MEDS: Depakote 500mg tab ORAL SCH ×2 (09:16→21:20)
[2017-05-19] MEDS: Heparin 5000 units/ml inj SUBQ SCH ×2 (09:21→21:26)
[2017-05-19] MEDS: Levemir Flexpen SUBQ SCH (09:26)
[2017-05-19 12:00] VITALS: BP 147/79
[2017-05-19 16:00] VITALS: BP 141/77
--- NOTE | 2017-05-19 17:44 | Pulmonology Progress Note ---
Assessment/Plan Problems: (1) Hyperglycemia due to type 1 diabetes mellitus (2) Seizure disorder (3) HTN (hypertension) (4) History of CVA (cerebrovascular accident) (5) Behavioral disorder (6) Diabetes (7) Psychosis Assessment/Plan sliding scale psych f/u check electrolytes dc planning d/w dr mcdaniel Subjective ROS Limited/Unobtainable: No Allergies: Coded Allergies: No Known Allergies (Unverified , 05/07/17) Objective Last 24 Hour Vital Signs Date Time Temp Pulse Resp B/P (MAP) Pulse Ox O2 Delivery O2 Flow Rate FiO2 05/19/17 16:00 97.7 66 19 141/77 100 05/19/17 12:00 97.0 57 19 147/79 100 05/19/17 09:14 151/82 05/19/17 09:14 70 151/82 05/19/17 08:00 96.4 70 19 151/82 100 05/19/17 07:52 74 19 Room Air 05/19/17 04:00 Room Air 05/19/17 00:00 Room Air 05/19/17 00:00 97.2 83 18 151/72 100 05/18/17 20:19 100 19 Room Air 05/18/17 20:00 Room Air 05/18/17 19:50 97.0 102 19 158/88 100 Intake and Output 05/18/17 05/19/17 19:00 07:00 Intake Total 1460 ml 1660 ml Balance 1460 ml 1660 ml Intake Oral 360 ml 460 ml IV Total 1100 ml 1200 ml # Voids 6 Objective General Appearance: no apparent distress Head: normocephalic, atraumatic Eyes: bilateral eye PERRL, bilateral eye EOMI ENT: normal pharynx, no angioedema Neck: supple, thyroid normal Respiratory: lungs clear, normal breath sounds Cardiovascular #1: regular rate, rhythm Gastrointestinal: non tender, soft Laboratory Tests 05/19/17 06:20: White Blood Count 3.5L, Red Blood Count 4.28L, Hemoglobin 11.9L, Hematocrit 37.2L, Mean Corpuscular Volume 87, Mean Corpuscular Hemoglobin 27.9, Mean Corpuscular Hemoglobin Concent 32.1, Red Cell Distribution Width 14.4, Platelet Count 229, Mean Platelet Volume 8.0, Neutrophils (%) (Auto) 57.5, Lymphocytes (% ) (Auto) 32.6, Monocytes (%) (Auto) 7.3, Eosinophils (%) (Auto) 1.5, Basophils ( %) (Auto) 1.2, Sodium Level 141, Potassium Level 4.1, Chloride Level 105, Carbon Dioxide Level 30, Anion Gap 6, Blood Urea Nitrogen 11, Creatinine 0.7, Estimat Glomerular Filtration Rate > 60, Glucose Level 170H, Calcium Level 9.3, Phosphorus Level 3.2, Magnesium Level 2.0, Total Bilirubin 0.3, Aspartate Amino Transf (AST/SGOT) 20, Alanine Aminotransferase (ALT/SGPT) 27, Alkaline Phosphatase 139H, Total Protein 7.1, Albumin 2.6L, Globulin 4.5, Albumin/ Globulin Ratio 0.6L Current Medications Medications (Trade) Dose Ordered Sig/Christine Route PRN Reason Start Time Stop Time Status Last Admin Dose Admin Acetaminophen (Tylenol) 650 mg Q4H PRN ORAL fever 05/15/17 06:30 06/14/17 06:29 Al Hydroxide/Mg Hydroxide (Mylanta II) 30 ml Q6H PRN ORAL dyspepsia 05/15/17 06:30 06/14/17 06:29 Albuterol/ Ipratropium (Albuterol/ Ipratropium) 3 ml Q4H PRN HHN Shortness of Breath 05/15/17 06:30 05/20/17 06:29 Amlodipine Besylate (Norvasc) 10 mg DAILY ORAL 05/15/17 09:00 06/14/17 08:59 05/19/17 09:14 Clonidine HCl (Catapres Tab) 0.1 mg Q4H PRN ORAL sbp more than 160 05/15/17 06:30 06/14/17 06:29 05/18/17 15:22 Dextrose (Dextrose 50%) STAT PRN IV Hypoglycemia 05/18/17 07:30 06/17/17 07:29 Divalproex Sodium (Depakote) 1,000 mg EVERY 12 HOURS ORAL 05/15/17 21:00 06/14/17 20:59 05/19/17 09:16 Heparin Sodium (Porcine) (Heparin 5000 units/ml) 5,000 units EVERY 12 HOURS SUBQ 05/15/17 09:00 06/14/17 08:59 05/19/17 09:21 Insulin Aspart (NovoLOG) BEFORE MEALS AND HS SUBQ 05/15/17 06:30 06/14/17 06:29 05/19/17 16:39 Insulin Aspart (NovoLOG) 4 units NOVOTIAC SUBQ 05/18/17 07:30 06/17/17 07:29 05/19/17 16:37 Insulin Detemir (Levemir) 8 units DAILY SUBQ 05/18/17 09:00 06/17/17 08:59 05/19/17 09:26 Ketorolac Tromethamine (Toradol 30mg) 30 mg Q6H PRN IV moderate pain 4-6 05/15/17 06:30 05/20/17 06:29 Levetiracetam (Keppra) 750 mg TWICE A DAY ORAL 05/15/17 09:00 06/14/17 08:59 05/19/17 16:45 Lisinopril (Zestril) 5 mg DAILY ORAL 05/15/17 09:00 06/14/17 08:59 05/19/17 09:14 Lorazepam (Ativan) 1 mg Q6H PRN ORAL For Anxiety 05/17/17 23:00 05/24/17 22:59 05/18/17 23:49 Morphine Sulfate (Morphine Sulfate) 2 mg Q4H PRN IVP severe pain 7-10 05/15/17 06:30 05/22/17 06:29 Nitroglycerin (Ntg) 0.4 mg Q5M X 3 DOSES PRN SL Prn Chest Pain 05/15/17 06:30 06/14/17 06:29 Ondansetron HCl (Zofran) 4 mg Q6H PRN IVP Nausea & Vomiting 05/15/17 06:30 06/14/17 06:29 05/15/17 09:49 Polyethylene Glycol (Miralax) 17 gm HSPRN PRN ORAL Constipation 05/15/17 06:30 06/14/17 06:29 Risperidone (RisperDAL) 3 mg BID ORAL 05/15/17 18:00 06/14/17 20:59 05/19/17 16:44 Sodium Chloride 1,000 ml @ 100 mls/hr Q10H IVLG 05/15/17 06:26 06/14/17 06:25 05/19/17 13:43 Temazepam (Restoril) 15 mg HSPRN PRN ORAL Insomnia 05/15/17 06:30 05/22/17 06:29 MAYRA GUTIERREZ May 19, 2017 17:44
[2017-05-19 20:00] VITALS: BP 157/82
--- NOTE | 2017-05-19 20:57 | General Progress Note ---
Assessment/Plan Status: stable, not improved Assessment/Plan Assessment/Plan schizoaffective d/o DM -depakote -risperdal -haldol mar Subjective Date patient seen: May 18, 2017 Neurologic/Psychiatric: Reports: anxiety, depressed, emotional problems Allergies: Coded Allergies: No Known Allergies (Unverified , 05/07/17) Objective Last 24 Hour Vital Signs Date Time Temp Pulse Resp B/P (MAP) Pulse Ox O2 Delivery O2 Flow Rate FiO2 05/19/17 18:43 66 18 Room Air 05/19/17 16:00 97.7 66 19 141/77 100 05/19/17 12:00 97.0 57 19 147/79 100 05/19/17 09:14 151/82 05/19/17 09:14 70 151/82 05/19/17 08:00 96.4 70 19 151/82 100 05/19/17 07:52 74 19 Room Air 05/19/17 04:00 Room Air 05/19/17 00:00 Room Air 05/19/17 00:00 97.2 83 18 151/72 100 Intake and Output 05/18/17 05/19/17 19:00 07:00 Intake Total 1460 ml 1660 ml Balance 1460 ml 1660 ml Intake Oral 360 ml 460 ml IV Total 1100 ml 1200 ml # Voids 6 Laboratory Tests 05/19/17 06:20: White Blood Count 3.5L, Red Blood Count 4.28L, Hemoglobin 11.9L, Hematocrit 37.2L, Mean Corpuscular Volume 87, Mean Corpuscular Hemoglobin 27.9, Mean Corpuscular Hemoglobin Concent 32.1, Red Cell Distribution Width 14.4, Platelet Count 229, Mean Platelet Volume 8.0, Neutrophils (%) (Auto) 57.5, Lymphocytes (% ) (Auto) 32.6, Monocytes (%) (Auto) 7.3, Eosinophils (%) (Auto) 1.5, Basophils ( %) (Auto) 1.2, Sodium Level 141, Potassium Level 4.1, Chloride Level 105, Carbon Dioxide Level 30, Anion Gap 6, Blood Urea Nitrogen 11, Creatinine 0.7, Estimat Glomerular Filtration Rate > 60, Glucose Level 170H, Calcium Level 9.3, Phosphorus Level 3.2, Magnesium Level 2.0, Total Bilirubin 0.3, Aspartate Amino Transf (AST/SGOT) 20, Alanine Aminotransferase (ALT/SGPT) 27, Alkaline Phosphatase 139H, Total Protein 7.1, Albumin 2.6L, Globulin 4.5, Albumin/ Globulin Ratio 0.6L Height (Feet): 6 Height (Inches): 1.00 Weight (Pounds): 185 General Appearance: no apparent distress, alert, confused, agitated Marge Barrios M.D. May 19, 2017 20:57
--- NOTE | 2017-05-19 20:58 | General Progress Note ---
Assessment/Plan Assessment/Plan Assessment/Plan schizoaffective d/o DM -depakote -risperdal -haldol mar Subjective Date patient seen: May 19, 2017 Neurologic/Psychiatric: Reports: anxiety, depressed Allergies: Coded Allergies: No Known Allergies (Unverified , 05/07/17) Objective Last 24 Hour Vital Signs Date Time Temp Pulse Resp B/P (MAP) Pulse Ox O2 Delivery O2 Flow Rate FiO2 05/19/17 18:43 66 18 Room Air 05/19/17 16:00 97.7 66 19 141/77 100 05/19/17 12:00 97.0 57 19 147/79 100 05/19/17 09:14 151/82 05/19/17 09:14 70 151/82 05/19/17 08:00 96.4 70 19 151/82 100 05/19/17 07:52 74 19 Room Air 05/19/17 04:00 Room Air 05/19/17 00:00 Room Air 05/19/17 00:00 97.2 83 18 151/72 100 Intake and Output 05/18/17 05/19/17 19:00 07:00 Intake Total 1460 ml 1660 ml Balance 1460 ml 1660 ml Intake Oral 360 ml 460 ml IV Total 1100 ml 1200 ml # Voids 6 Laboratory Tests 05/19/17 06:20: White Blood Count 3.5L, Red Blood Count 4.28L, Hemoglobin 11.9L, Hematocrit 37.2L, Mean Corpuscular Volume 87, Mean Corpuscular Hemoglobin 27.9, Mean Corpuscular Hemoglobin Concent 32.1, Red Cell Distribution Width 14.4, Platelet Count 229, Mean Platelet Volume 8.0, Neutrophils (%) (Auto) 57.5, Lymphocytes (% ) (Auto) 32.6, Monocytes (%) (Auto) 7.3, Eosinophils (%) (Auto) 1.5, Basophils ( %) (Auto) 1.2, Sodium Level 141, Potassium Level 4.1, Chloride Level 105, Carbon Dioxide Level 30, Anion Gap 6, Blood Urea Nitrogen 11, Creatinine 0.7, Estimat Glomerular Filtration Rate > 60, Glucose Level 170H, Calcium Level 9.3, Phosphorus Level 3.2, Magnesium Level 2.0, Total Bilirubin 0.3, Aspartate Amino Transf (AST/SGOT) 20, Alanine Aminotransferase (ALT/SGPT) 27, Alkaline Phosphatase 139H, Total Protein 7.1, Albumin 2.6L, Globulin 4.5, Albumin/ Globulin Ratio 0.6L Height (Feet): 6 Height (Inches): 1.00 Weight (Pounds): 185 General Appearance: no apparent distress, alert, confused, agitated, combative Marge Barrios M.D. May 19, 2017 20:58
[2017-05-19] MEDS: LORazepam 1mg tab ORAL PRN (21:31)
--- NOTE | 2017-05-19 22:02 | General Progress Note ---
Assessment/Plan Problem List: (1) Diabetes ICD Codes: E11.9 - Type 2 diabetes mellitus without complications SNOMED: 68743113 (2) Seizure disorder ICD Codes: G40.909 - Epilepsy, unspecified, not intractable, without status epilepticus SNOMED: 730738509 (3) HTN (hypertension) ICD Codes: I10 - Essential (primary) hypertension SNOMED: 50126677 (4) Psychosis ICD Codes: F29 - Unspecified psychosis not due to a substance or known physiological condition SNOMED: 00033513, 10277762 Qualifiers: Qualified Codes: F23 - Brief psychotic disorder (5) History of CVA (cerebrovascular accident) ICD Codes: Z86.73 - Personal history of transient ischemic attack (TIA), and cerebral infarction without residual deficits SNOMED: 727459793 (6) Behavioral disorder SNOMED: 061989112 Assessment/Plan continue Levemir 8 units daily continue Novolog 4 units ac tid continue with NISS only Subjective Allergies: Coded Allergies: No Known Allergies (Unverified , 05/07/17) All Systems: reviewed and negative except above Subjective events noted BG values improved Item Value Date Time Bedside Blood Glucose 182 mg/dl H 05/19/17 2128 Bedside Blood Glucose 219 mg/dl H 05/19/17 1639 Bedside Blood Glucose 104 mg/dl 05/19/17 1200 Bedside Blood Glucose 83 mg/dl 05/19/17 0926 Bedside Blood Glucose 140 mg/dl H 05/19/17 0645 Objective Last 24 Hour Vital Signs Date Time Temp Pulse Resp B/P (MAP) Pulse Ox O2 Delivery O2 Flow Rate FiO2 05/19/17 20:00 97.5 87 20 157/82 100 05/19/17 18:43 66 18 Room Air 05/19/17 16:00 97.7 66 19 141/77 100 05/19/17 12:00 97.0 57 19 147/79 100 05/19/17 09:14 151/82 05/19/17 09:14 70 151/82 05/19/17 08:00 96.4 70 19 151/82 100 05/19/17 07:52 74 19 Room Air 05/19/17 04:00 Room Air 05/19/17 00:00 Room Air 05/19/17 00:00 97.2 83 18 151/72 100 Intake and Output 05/18/17 05/19/17 19:00 07:00 Intake Total 1460 ml 1660 ml Balance 1460 ml 1660 ml Intake Oral 360 ml 460 ml IV Total 1100 ml 1200 ml # Voids 6 Laboratory Tests 05/19/17 06:20: White Blood Count 3.5L, Red Blood Count 4.28L, Hemoglobin 11.9L, Hematocrit 37.2L, Mean Corpuscular Volume 87, Mean Corpuscular Hemoglobin 27.9, Mean Corpuscular Hemoglobin Concent 32.1, Red Cell Distribution Width 14.4, Platelet Count 229, Mean Platelet Volume 8.0, Neutrophils (%) (Auto) 57.5, Lymphocytes (% ) (Auto) 32.6, Monocytes (%) (Auto) 7.3, Eosinophils (%) (Auto) 1.5, Basophils ( %) (Auto) 1.2, Sodium Level 141, Potassium Level 4.1, Chloride Level 105, Carbon Dioxide Level 30, Anion Gap 6, Blood Urea Nitrogen 11, Creatinine 0.7, Estimat Glomerular Filtration Rate > 60, Glucose Level 170H, Calcium Level 9.3, Phosphorus Level 3.2, Magnesium Level 2.0, Total Bilirubin 0.3, Aspartate Amino Transf (AST/SGOT) 20, Alanine Aminotransferase (ALT/SGPT) 27, Alkaline Phosphatase 139H, Total Protein 7.1, Albumin 2.6L, Globulin 4.5, Albumin/ Globulin Ratio 0.6L Height (Feet): 6 Height (Inches): 1.00 Weight (Pounds): 185 General Appearance: no apparent distress Neck: normal alignment Cardiovascular: normal rate Respiratory/Chest: lungs clear Abdomen: normal bowel sounds Objective Current Medications Medications (Trade) Dose Ordered Sig/Christine Route PRN Reason Start Time Stop Time Status Last Admin Dose Admin Acetaminophen (Tylenol) 650 mg Q4H PRN ORAL fever 05/15/17 06:30 06/14/17 06:29 Al Hydroxide/Mg Hydroxide (Mylanta II) 30 ml Q6H PRN ORAL dyspepsia 05/15/17 06:30 06/14/17 06:29 Albuterol/ Ipratropium (Albuterol/ Ipratropium) 3 ml Q4H PRN HHN Shortness of Breath 05/15/17 06:30 05/20/17 06:29 Amlodipine Besylate (Norvasc) 10 mg DAILY ORAL 05/15/17 09:00 06/14/17 08:59 05/19/17 09:14 Clonidine HCl (Catapres Tab) 0.1 mg Q4H PRN ORAL sbp more than 160 05/15/17 06:30 06/14/17 06:29 05/18/17 15:22 Dextrose (Dextrose 50%) STAT PRN IV Hypoglycemia 05/18/17 07:30 06/17/17 07:29 Divalproex Sodium (Depakote) 1,000 mg EVERY 12 HOURS ORAL 05/15/17 21:00 06/14/17 20:59 05/19/17 21:20 Heparin Sodium (Porcine) (Heparin 5000 units/ml) 5,000 units EVERY 12 HOURS SUBQ 05/15/17 09:00 06/14/17 08:59 05/19/17 21:26 Insulin Aspart (NovoLOG) BEFORE MEALS AND HS SUBQ 05/15/17 06:30 06/14/17 06:29 05/19/17 21:25 Insulin Aspart (NovoLOG) 4 units NOVOTIAC SUBQ 05/18/17 07:30 06/17/17 07:29 05/19/17 16:37 Insulin Detemir (Levemir) 8 units DAILY SUBQ 05/18/17 09:00 06/17/17 08:59 05/19/17 09:26 Ketorolac Tromethamine (Toradol 30mg) 30 mg Q6H PRN IV moderate pain 4-6 05/15/17 06:30 05/20/17 06:29 Levetiracetam (Keppra) 750 mg TWICE A DAY ORAL 05/15/17 09:00 06/14/17 08:59 05/19/17 16:45 Lisinopril (Zestril) 5 mg DAILY ORAL 05/15/17 09:00 06/14/17 08:59 05/19/17 09:14 Lorazepam (Ativan) 1 mg Q6H PRN ORAL For Anxiety 05/17/17 23:00 05/24/17 22:59 05/19/17 21:31 Morphine Sulfate (Morphine Sulfate) 2 mg Q4H PRN IVP severe pain 7-10 05/15/17 06:30 05/22/17 06:29 Nitroglycerin (Ntg) 0.4 mg Q5M X 3 DOSES PRN SL Prn Chest Pain 05/15/17 06:30 06/14/17 06:29 Ondansetron HCl (Zofran) 4 mg Q6H PRN IVP Nausea & Vomiting 05/15/17 06:30 06/14/17 06:29 05/15/17 09:49 Polyethylene Glycol (Miralax) 17 gm HSPRN PRN ORAL Constipation 05/15/17 06:30 06/14/17 06:29 Risperidone (RisperDAL) 3 mg BID ORAL 05/15/17 18:00 06/14/17 20:59 05/19/17 16:44 Sodium Chloride 1,000 ml @ 100 mls/hr Q10H IVLG 05/15/17 06:26 06/14/17 06:25 05/19/17 21:27 Temazepam (Restoril) 15 mg HSPRN PRN ORAL Insomnia 05/15/17 06:30 05/22/17 06:29 TAMMY CHAPIN May 19, 2017 22:02
[2017-05-19 23:54] VITALS: BP 143/76
[2017-05-20 03:49] VITALS: BP 160/88
[2017-05-20] MEDS: NovoLOG Insulin Flexpen SUBQ SCH ×7 (06:36→21:13)
[2017-05-20 08:09] VITALS: BP 156/83
--- NOTE | 2017-05-20 08:14 | Pulmonology Progress Note ---
Assessment/Plan Assessment/Plan ASSESSMENT Hyperglycemia associated with type 1 DM seizure disorder HTN Hx of CVA schizoaffective disorder DM OOC Alcohol abuse PLAN OF CARE MS floor BS stabilized IVF on Levemir, pre-meal short acting and SSI prn [id number], not at goal seizure precautions, continue Keppra and Depakote BP management with CCB and EN lipid panel stable, add ASA PT Rx Bowel regimen psych optimized psychiatric medic regimen dc plan, awaiting for disposition case discussed and evaluated by supervising physician Subjective Allergies: Coded Allergies: No Known Allergies (Unverified , 05/07/17) Subjective behavior appropriated awaiting for disposition Objective Last 24 Hour Vital Signs Date Time Temp Pulse Resp B/P (MAP) Pulse Ox O2 Delivery O2 Flow Rate FiO2 05/20/17 08:09 97.4 68 20 156/83 96 05/20/17 04:51 162/80 05/20/17 03:49 97.0 67 18 160/88 98 05/19/17 23:54 97.4 79 18 143/76 100 05/19/17 20:00 97.5 87 20 157/82 100 05/19/17 18:43 66 18 Room Air 05/19/17 16:00 97.7 66 19 141/77 100 05/19/17 12:00 97.0 57 19 147/79 100 05/19/17 09:14 151/82 05/19/17 09:14 70 151/82 Intake and Output 05/19/17 05/20/17 19:00 07:00 Intake Total 1380 ml 1560 ml Balance 1380 ml 1560 ml Intake Oral 480 ml 360 ml IV Total 900 ml 1200 ml # Voids 2 6 General Appearance: no acute distress HEENT: normocephalic, atraumatic, anicteric, mucous membranes moist Respiratory/Chest: lungs clear, no accessory muscle use Cardiovascular: normal peripheral pulses, normal rate, no JVD Abdomen: normal bowel sounds, soft, non tender, non distended Extremities: no edema, pedal pulses normal Neurologic/Psychiatric: alert, responsive Musculoskeletal: normal muscle bulk Current Medications Medications (Trade) Dose Ordered Sig/Christine Route PRN Reason Start Time Stop Time Status Last Admin Dose Admin Acetaminophen (Tylenol) 650 mg Q4H PRN ORAL fever 05/15/17 06:30 06/14/17 06:29 Al Hydroxide/Mg Hydroxide (Mylanta II) 30 ml Q6H PRN ORAL dyspepsia 05/15/17 06:30 06/14/17 06:29 Amlodipine Besylate (Norvasc) 10 mg DAILY ORAL 05/15/17 09:00 06/14/17 08:59 05/19/17 09:14 Clonidine HCl (Catapres Tab) 0.1 mg Q4H PRN ORAL sbp more than 160 05/15/17 06:30 06/14/17 06:29 05/20/17 04:51 Clotrimazole (Lotrimin) 1 applic EVERY 12 HOURS TOPIC 05/20/17 09:00 06/19/17 08:59 Dextrose (Dextrose 50%) STAT PRN IV Hypoglycemia 05/18/17 07:30 06/17/17 07:29 Divalproex Sodium (Depakote) 1,000 mg EVERY 12 HOURS ORAL 05/15/17 21:00 06/14/17 20:59 05/19/17 21:20 Heparin Sodium (Porcine) (Heparin 5000 units/ml) 5,000 units EVERY 12 HOURS SUBQ 05/15/17 09:00 06/14/17 08:59 05/19/17 21:26 Insulin Aspart (NovoLOG) BEFORE MEALS AND HS SUBQ 05/15/17 06:30 06/14/17 06:29 05/20/17 06:36 Insulin Aspart (NovoLOG) 4 units NOVOTIAC SUBQ 05/18/17 07:30 06/17/17 07:29 05/20/17 06:37 Insulin Detemir (Levemir) 8 units DAILY SUBQ 05/18/17 09:00 06/17/17 08:59 05/19/17 09:26 Levetiracetam (Keppra) 750 mg TWICE A DAY ORAL 05/15/17 09:00 06/14/17 08:59 05/19/17 16:45 Lisinopril (Zestril) 5 mg DAILY ORAL 05/15/17 09:00 06/14/17 08:59 05/19/17 09:14 Lorazepam (Ativan) 1 mg Q6H PRN ORAL For Anxiety 05/17/17 23:00 05/24/17 22:59 05/19/17 21:31 Morphine Sulfate (Morphine Sulfate) 2 mg Q4H PRN IVP severe pain 7-10 05/15/17 06:30 05/22/17 06:29 Nitroglycerin (Ntg) 0.4 mg Q5M X 3 DOSES PRN SL Prn Chest Pain 05/15/17 06:30 06/14/17 06:29 Ondansetron HCl (Zofran) 4 mg Q6H PRN IVP Nausea & Vomiting 05/15/17 06:30 06/14/17 06:29 05/15/17 09:49 Polyethylene Glycol (Miralax) 17 gm HSPRN PRN ORAL Constipation 05/15/17 06:30 06/14/17 06:29 Risperidone (RisperDAL) 3 mg BID ORAL 05/15/17 18:00 06/14/17 20:59 05/19/17 16:44 Sodium Chloride 1,000 ml @ 100 mls/hr Q10H IVLG 05/15/17 06:26 06/14/17 06:25 05/19/17 21:27 Temazepam (Restoril) 15 mg HSPRN PRN ORAL Insomnia 05/15/17 06:30 05/22/17 06:29 [facility]Ksenia NP May 20, 2017 08:14
[2017-05-20] MEDS: Levemir Flexpen SUBQ SCH (09:57)
[2017-05-20] MEDS: Heparin 5000 units/ml inj SUBQ SCH ×2 (09:57→21:11)
[2017-05-20] MEDS: levETIRAcetam 500mg/5ml Liquid ORAL SCH ×2 (10:07→17:03)
[2017-05-20] MEDS: Depakote 500mg tab ORAL SCH ×2 (10:07→21:10)
[2017-05-20] MEDS: Lisinopril 2.5mg tab ORAL SCH (10:08)
[2017-05-20] MEDS ORDERED: AVAPRO300 MG ORAL (10:50)
[2017-05-20] MEDS ORDERED: HYDRALAZINE HC100 MG ORAL (10:50)
[2017-05-20] MEDS ORDERED: METOPROLOL TART50 M1 ORAL (10:54)
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
[2017-05-20 11:43] VITALS: BP 135/77
[2017-05-20 15:55] VITALS: BP 157/91
[2017-05-20 15:59] VITALS: BP 157/91
[2017-05-20] MEDS: LORazepam 1mg tab ORAL PRN (17:03)
--- NOTE | 2017-05-20 18:41 | General Progress Note ---
Assessment/Plan Status: stable Assessment/Plan Assessment/Plan schizoaffective d/o DM -depakote -risperdal -haldol dec Subjective Date patient seen: May 20, 2017 Neurologic/Psychiatric: Reports: anxiety, depressed, emotional problems Allergies: Coded Allergies: No Known Allergies (Unverified , 05/07/17) Objective Last 24 Hour Vital Signs Date Time Temp Pulse Resp B/P (MAP) Pulse Ox O2 Delivery O2 Flow Rate FiO2 05/20/17 15:59 97.2 72 19 157/91 97 05/20/17 15:55 97.2 72 19 157/91 99 Room Air 05/20/17 11:44 Room Air 05/20/17 11:43 98.0 62 20 135/77 96 05/20/17 11:27 75 18 Room Air 05/20/17 10:08 156/83 05/20/17 10:07 68 156/83 05/20/17 08:10 Room Air 05/20/17 08:09 97.4 68 20 156/83 96 05/20/17 04:51 162/80 05/20/17 03:49 97.0 67 18 160/88 98 05/19/17 23:54 97.4 79 18 143/76 100 05/19/17 20:00 97.5 87 20 157/82 100 05/19/17 18:43 66 18 Room Air Intake and Output 05/19/17 05/20/17 19:00 07:00 Intake Total 1380 ml 1560 ml Balance 1380 ml 1560 ml Intake Oral 480 ml 360 ml IV Total 900 ml 1200 ml # Voids 2 6 Height (Feet): 6 Height (Inches): 1.00 Weight (Pounds): 185 General Appearance: no apparent distress, alert, confused, agitated Marge Barrios M.D. May 20, 2017 18:41
[2017-05-20 19:26] VITALS: BP 154/88
[2017-05-21] VITALS (8 sets, daily range): BP systolic 142–180; BP diastolic 68–92
[2017-05-21] MEDS: NovoLOG Insulin Flexpen SUBQ SCH ×7 (07:14→21:00)
--- NOTE | 2017-05-21 08:02 | Pulmonology Progress Note ---
Assessment/Plan Assessment/Plan ASSESSMENT Hyperglycemia associated with type 1 DM seizure disorder HTN Hx of CVA schizoaffective disorder DM OOC Alcohol abuse PLAN OF CARE [facility] floor BS stabilized IVF on Levemir, pre-meal short acting and SSI prn [id number], not at goal seizure precautions, continue Keppra and Depakote BP management with CCB and EN lipid panel stable, added ASA PT Rx Bowel regimen psych optimized psychiatric medic regimen dc plan, awaiting for disposition case discussed and evaluated by supervising physician Subjective Allergies: Coded Allergies: No Known Allergies (Unverified , 05/07/17) Subjective behavior appropriated awaiting for disposition Objective Last 24 Hour Vital Signs Date Time Temp Pulse Resp B/P (MAP) Pulse Ox O2 Delivery O2 Flow Rate FiO2 05/21/17 07:21 180/92 05/21/17 04:00 97.2 65 20 180/92 94 Room Air 05/21/17 00:18 97.3 66 20 172/87 100 Room Air 05/20/17 19:30 72 20 Room Air 21 05/20/17 19:26 97.5 77 20 154/88 94 Room Air 05/20/17 15:59 97.2 72 19 157/91 97 05/20/17 15:55 97.2 72 19 157/91 99 Room Air 05/20/17 11:44 Room Air 05/20/17 11:43 98.0 62 20 135/77 96 05/20/17 11:27 75 18 Room Air 05/20/17 10:08 156/83 05/20/17 10:07 68 156/83 05/20/17 08:10 Room Air 05/20/17 08:09 97.4 68 20 156/83 96 Intake and Output 05/20/17 05/21/17 19:00 07:00 Intake Total 1260 ml 1800 ml Balance 1260 ml 1800 ml Intake Oral 360 ml 600 ml IV Total 900 ml 1200 ml # Voids 2 4 Objective General Appearance: no acute distress HEENT: normocephalic, atraumatic, anicteric, mucous membranes moist Respiratory/Chest: lungs clear, no accessory muscle use Cardiovascular: normal peripheral pulses, normal rate, no JVD Abdomen: normal bowel sounds, soft, non tender, non distended Extremities: no edema, pedal pulses normal Neurologic/Psychiatric: alert, responsive Musculoskeletal: normal muscle bulk Current Medications Medications (Trade) Dose Ordered Sig/Christine Route PRN Reason Start Time Stop Time Status Last Admin Dose Admin Acetaminophen (Tylenol) 650 mg Q4H PRN ORAL fever 05/15/17 06:30 06/14/17 06:29 Al Hydroxide/Mg Hydroxide (Mylanta II) 30 ml Q6H PRN ORAL dyspepsia 05/15/17 06:30 06/14/17 06:29 Amlodipine Besylate (Norvasc) 10 mg DAILY ORAL 05/15/17 09:00 06/14/17 08:59 05/19/17 09:14 Aspirin (Ecotrin) 81 mg DAILY ORAL 05/21/17 09:00 06/20/17 08:59 Clonidine HCl (Catapres Tab) 0.1 mg Q4H PRN ORAL sbp more than 160 05/15/17 06:30 3 06:29 05/21/17 07:21 Clotrimazole (Lotrimin) 1 applic EVERY 12 HOURS TOPIC 05/20/17 09:00 06/19/17 08:59 05/20/17 21:07 Dextrose (Dextrose 50%) STAT PRN IV Hypoglycemia 05/18/17 07:30 06/17/17 07:29 Divalproex Sodium (Depakote) 1,000 mg EVERY 12 HOURS ORAL 05/15/17 21:00 06/14/17 20:59 05/20/17 21:10 Heparin Sodium (Porcine) (Heparin 5000 units/ml) 5,000 units EVERY 12 HOURS SUBQ 05/15/17 09:00 06/14/17 08:59 05/20/17 21:11 Insulin Aspart (NovoLOG) BEFORE MEALS AND HS SUBQ 05/15/17 06:30 06/14/17 06:29 05/21/17 07:15 Insulin Aspart (NovoLOG) 4 units NOVOTIAC SUBQ 05/18/17 07:30 06/17/17 07:29 05/21/17 07:14 Insulin Detemir (Levemir) 8 units DAILY SUBQ 05/18/17 09:00 06/17/17 08:59 05/20/17 09:57 Levetiracetam (Keppra) 750 mg TWICE A DAY ORAL 05/15/17 09:00 06/14/17 08:59 05/20/17 17:03 Lisinopril (Zestril) 5 mg DAILY ORAL 05/15/17 09:00 06/14/17 08:59 05/19/17 09:14 Lorazepam (Ativan) 1 mg Q6H PRN ORAL For Anxiety 05/17/17 23:00 05/24/17 22:59 05/20/17 17:03 Morphine Sulfate (Morphine Sulfate) 2 mg Q4H PRN IVP severe pain 7-10 05/15/17 06:30 05/22/17 06:29 Nitroglycerin (Ntg) 0.4 mg Q5M X 3 DOSES PRN SL Prn Chest Pain 05/15/17 06:30 06/14/17 06:29 Ondansetron HCl (Zofran) 4 mg Q6H PRN IVP Nausea & Vomiting 05/15/17 06:30 06/14/17 06:29 05/15/17 09:49 Polyethylene Glycol (Miralax) 17 gm HSPRN PRN ORAL Constipation 05/15/17 06:30 06/14/17 06:29 Risperidone (RisperDAL) 3 mg BID ORAL 05/15/17 18:00 06/14/17 20:59 05/20/17 17:03 Sodium Chloride 1,000 ml @ 100 mls/hr Q10H IVLG 05/15/17 06:26 06/14/17 06:25 05/21/17 05:32 Temazepam (Restoril) 15 mg HSPRN PRN ORAL Insomnia 05/15/17 06:30 05/22/17 06:29 Ksenia Obando NP ([facility]) May 21, 2017 08:02
[2017-05-21] MEDS: Levemir Flexpen SUBQ SCH (08:50)
[2017-05-21] MEDS: levETIRAcetam 500mg/5ml Liquid ORAL SCH ×2 (09:30→17:05)
[2017-05-21] MEDS: Aspirin EC 81mg tab ORAL SCH (09:30)
[2017-05-21] MEDS: Depakote 500mg tab ORAL SCH ×2 (09:30→21:11)
[2017-05-21] MEDS: Lisinopril 2.5mg tab ORAL SCH (09:31)
[2017-05-21] MEDS: Heparin 5000 units/ml inj SUBQ SCH ×2 (09:31→21:21)
[2017-05-21] MEDS ORDERED: Morphine Sulfate 4mg/ml Inj IVP PRN (11:15)
[2017-05-21] MEDS: LORazepam 1mg tab ORAL PRN (11:36)
[2017-05-22] VITALS: BP 163/84
[2017-05-22 04:00] VITALS: BP 151/79
--- NOTE | 2017-05-22 05:30 | Geriatric Medicine Prog Note ---
DATE: 05/21/2017 NOTE: POOR AUDIO SUBJECTIVE: The patient is more comfortable today. . Glucose 102. controlled. sliding scale low-dose NovoLog . Chaim Garcia M.D. DR: ELIGIO JOB#: [id number] CC:
[2017-05-22] MEDS: NovoLOG Insulin Flexpen SUBQ SCH ×7 (06:21→21:00)
[2017-05-22 08:00] VITALS: BP 152/72
[2017-05-22] MEDS: Aspirin EC 81mg tab ORAL SCH (08:43)
[2017-05-22] MEDS: Lisinopril 2.5mg tab ORAL SCH (08:43)
[2017-05-22] MEDS: LORazepam 1mg tab ORAL PRN (08:43)
[2017-05-22] MEDS: Depakote 500mg tab ORAL SCH ×2 (08:43→21:04)
[2017-05-22] MEDS: levETIRAcetam 500mg/5ml Liquid ORAL SCH ×2 (08:44→17:19)
[2017-05-22] MEDS: Heparin 5000 units/ml inj SUBQ SCH ×2 (08:45→21:06)
[2017-05-22] MEDS ORDERED: Levemir Flexpen SUBQ SCH (09:00)
[2017-05-22 12:00] VITALS: BP 148/76
--- NOTE | 2017-05-22 12:24 | Pulmonology Progress Note ---
Assessment/Plan Assessment/Plan ASSESSMENT Hyperglycemia associated with type 1 DM seizure disorder HTN Hx of CVA schizoaffective disorder DM OOC Alcohol abuse PLAN OF CARE MS floor BS stable IVF on Levemir, pre-meal short acting and SSI prn [id number], not at goal seizure precautions, continue Keppra and Depakote BP management with CCB and EN lipid panel stable, added ASA condom cath PT Rx Bowel regimen psych optimized psychiatric medic regimen dc plan, awaiting for disposition, challenging case discussed and evaluated by supervising physician Subjective Allergies: Coded Allergies: No Known Allergies (Unverified , 05/07/17) Subjective behavior appropriated awaiting for disposition , challenging Objective Last 24 Hour Vital Signs Date Time Temp Pulse Resp B/P (MAP) Pulse Ox O2 Delivery O2 Flow Rate FiO2 05/22/17 08:43 152/72 05/22/17 08:43 73 152/72 05/22/17 08:00 97.6 73 19 152/72 98 05/22/17 04:00 97.0 52 20 151/79 100 05/22/17 00:23 168/84 05/22/17 00:00 97.0 63 21 163/84 100 05/21/17 19:52 98.2 79 20 152/79 100 05/21/17 19:33 58 20 Room Air 21 05/21/17 15:40 98.4 55 20 142/68 95 05/21/17 13:48 52 154/73 Intake and Output 05/21/17 05/22/17 19:00 07:00 Intake Total 1700 ml 1580 ml Balance 1700 ml 1580 ml Intake Oral 600 ml 480 ml IV Total 1100 ml 1100 ml # Voids 4 Objective General Appearance: no acute distress HEENT: normocephalic, atraumatic, anicteric, mucous membranes moist Respiratory/Chest: lungs clear, no accessory muscle use Cardiovascular: normal peripheral pulses, normal rate, no JVD Abdomen: normal bowel sounds, soft, non tender, non distended Extremities: no edema, pedal pulses normal Neurologic/Psychiatric: alert, responsive Musculoskeletal: normal muscle bulk Current Medications Medications (Trade) Dose Ordered Sig/Christine Route PRN Reason Start Time Stop Time Status Last Admin Dose Admin Acetaminophen (Tylenol) 650 mg Q4H PRN ORAL fever 05/15/17 06:30 06/14/17 06:29 Al Hydroxide/Mg Hydroxide (Mylanta II) 30 ml Q6H PRN ORAL dyspepsia 05/15/17 06:30 06/14/17 06:29 Amlodipine Besylate (Norvasc) 10 mg DAILY ORAL 05/15/17 09:00 06/14/17 08:59 05/22/17 08:43 Aspirin (Ecotrin) 81 mg DAILY ORAL 05/21/17 09:00 06/20/17 08:59 05/22/17 08:43 Clonidine HCl (Catapres Tab) 0.1 mg Q4H PRN ORAL sbp more than 160 05/15/17 06:30 06/14/17 06:29 05/22/17 00:23 Clotrimazole (Lotrimin) 1 applic EVERY 12 HOURS TOPIC 05/20/17 09:00 06/19/17 08:59 05/22/17 08:48 Dextrose (Dextrose 50%) STAT PRN IV Hypoglycemia 05/18/17 07:30 06/17/17 07:29 05/21/17 16:03 Divalproex Sodium (Depakote) 1,000 mg EVERY 12 HOURS ORAL 05/15/17 21:00 06/14/17 20:59 05/22/17 08:43 Heparin Sodium (Porcine) (Heparin 5000 units/ml) 5,000 units EVERY 12 HOURS SUBQ 05/15/17 09:00 06/14/17 08:59 05/22/17 08:45 Insulin Aspart (NovoLOG) BEFORE MEALS AND HS SUBQ 05/15/17 06:30 06/14/17 06:29 05/22/17 06:21 Insulin Aspart (NovoLOG) 4 units NOVOTIAC SUBQ 05/18/17 07:30 06/17/17 07:29 05/22/17 06:22 Insulin Detemir (Levemir) 8 units DAILY SUBQ 05/22/17 09:00 06/21/17 08:59 05/22/17 08:51 Levetiracetam (Keppra) 750 mg TWICE A DAY ORAL 05/15/17 09:00 06/14/17 08:59 05/22/17 08:44 Lisinopril (Zestril) 5 mg DAILY ORAL 05/15/17 09:00 06/14/17 08:59 05/22/17 08:43 Lorazepam (Ativan) 1 mg Q6H PRN ORAL For Anxiety 05/17/17 23:00 05/24/17 22:59 05/22/17 08:43 Nitroglycerin (Ntg) 0.4 mg Q5M X 3 DOSES PRN SL Prn Chest Pain 05/15/17 06:30 06/14/17 06:29 Ondansetron HCl (Zofran) 4 mg Q6H PRN IVP Nausea & Vomiting 05/15/17 06:30 06/14/17 06:29 05/15/17 09:49 Polyethylene Glycol (Miralax) 17 gm HSPRN PRN ORAL Constipation 05/15/17 06:30 06/14/17 06:29 Risperidone (RisperDAL) 3 mg BID ORAL 05/15/17 18:00 06/14/17 20:59 05/22/17 08:42 Sodium Chloride 1,000 ml @ 100 mls/hr Q10H IVLG 05/15/17 06:26 06/14/17 06:25 05/22/17 02:10 Topher ([facility])Ksenia NP May 22, 2017 12:24
[2017-05-22 15:17] VITALS: BP 143/92
--- NOTE | 2017-05-22 17:00 | Progress Note ---
DATE: 05/21/2017 SUBJECTIVE: The patient is confused. Continues to yell and scream. He has episodes of agitation, not redirectable. MENTAL STATUS EXAMINATION: The patient is alert and oriented times self. Mood is agitated. Affect is flat. Congruent with mood. Thought process, there is a paucity of thought content. Thought content, no suicidal or homicidal ideation. ASSESSMENT: 1. Anxiety. 2. Agitation. 3. Encephalopathy. PLAN: We will continue current medications. Marge Barrios M.D. DR: Sarina JOB#: [id number] CC:
[2017-05-22 20:00] VITALS: BP 157/75
[2017-05-23] VITALS (8 sets, daily range): BP systolic 131–164; BP diastolic 68–101
[2017-05-23] MEDS: NovoLOG Insulin Flexpen SUBQ SCH ×7 (06:37→20:41)
--- NOTE | 2017-05-23 06:46 | Geriatric Medicine Prog Note ---
DATE: 05/23/2017 NOTE: POOR AUDIO SUBJECTIVE: The patient is comfortable today. OBJECTIVE: VITAL SIGNS: Blood pressure 153/75, pulse 80, respiratory rate , and temperature 97.7 degrees. RESPIRATORY: Clear. CVS: Regular LABORATORY DATA: Glucose 79. in fair control. PLAN: _ NovoLog __5_ units t.i.d. before meals. an dLeeeeeeeeeevemir 10u hi BID / . Chaim Garcia M.D. DR: ELIGIO JOB#: [id number] CC: JASON
[2017-05-23] MEDS: Aspirin EC 81mg tab ORAL SCH (08:21)
[2017-05-23] MEDS: Depakote 500mg tab ORAL SCH ×2 (08:21→20:38)
[2017-05-23] MEDS: Lisinopril 2.5mg tab ORAL SCH (08:21)
[2017-05-23] MEDS: levETIRAcetam 500mg/5ml Liquid ORAL SCH ×2 (08:22→17:26)
[2017-05-23] MEDS: Heparin 5000 units/ml inj SUBQ SCH ×2 (08:23→20:40)
[2017-05-23] MEDS: Levemir Flexpen SUBQ SCH ×2 (09:14→20:40)
--- NOTE | 2017-05-23 12:24 | Pulmonology Progress Note ---
Assessment/Plan Assessment/Plan ASSESSMENT Hyperglycemia associated with type 1 DM seizure disorder HTN Hx of CVA schizoaffective disorder DM OOC Alcohol abuse PLAN OF CARE MS floor BS stable IVF on Levemir, pre-meal short acting and SSI prn [id number], not at goal , but stable in the hospital seizure precautions, continue Keppra and Depakote BP management with CCB and EN lipid panel stable, added ASA condom cath PT Rx Bowel regimen psych optimized psychiatric medic regimen dc plan, awaiting for disposition, challenging -ready for discharge case discussed and evaluated by supervising physician Subjective Allergies: Coded Allergies: No Known Allergies (Unverified , 05/07/17) Subjective behavior appropriated awaiting for disposition , challenging -ready for discharge Objective Last 24 Hour Vital Signs Date Time Temp Pulse Resp B/P (MAP) Pulse Ox O2 Delivery O2 Flow Rate FiO2 05/23/17 11:38 97.7 71 20 136/80 99 05/23/17 08:21 151/93 05/23/17 08:21 78 151/93 05/23/17 08:00 96.3 82 20 156/101 100 05/23/17 07:41 74 20 Room Air 21 05/23/17 04:41 Room Air 05/23/17 04:00 97.0 78 18 151/93 100 Room Air 05/23/17 00:42 Room Air 05/23/17 00:00 97.9 69 20 131/68 100 Room Air 05/22/17 20:00 Room Air 05/22/17 20:00 97.7 88 20 157/75 100 Room Air 05/22/17 15:17 98.2 81 20 143/92 98 Intake and Output 05/22/17 05/23/17 19:00 07:00 Intake Total 555 ml 900 ml Output Total 700 ml 2000 ml Balance -145 ml -1100 ml Intake Oral 480 ml IV Total 75 ml 900 ml Output Urine Total 700 ml 2000 ml # Voids 1 Objective General Appearance: no acute distress HEENT: normocephalic, atraumatic, anicteric, mucous membranes moist Respiratory/Chest: lungs clear, no accessory muscle use Cardiovascular: normal peripheral pulses, normal rate, no JVD Abdomen: normal bowel sounds, soft, non tender, non distended Extremities: no edema, pedal pulses normal Neurologic/Psychiatric: alert, responsive Musculoskeletal: normal muscle bulk Laboratory Tests 05/23/17 04:05: Hemoglobin A1c 9.8H Current Medications Medications (Trade) Dose Ordered Sig/Christine Route PRN Reason Start Time Stop Time Status Last Admin Dose Admin Acetaminophen (Tylenol) 650 mg Q4H PRN ORAL fever 05/15/17 06:30 06/14/17 06:29 Al Hydroxide/Mg Hydroxide (Mylanta II) 30 ml Q6H PRN ORAL dyspepsia 05/15/17 06:30 06/14/17 06:29 Amlodipine Besylate (Norvasc) 10 mg DAILY ORAL 05/15/17 09:00 06/14/17 08:59 05/23/17 08:21 Aspirin (Ecotrin) 81 mg DAILY ORAL 05/21/17 09:00 06/20/17 08:59 05/23/17 08:21 Clonidine HCl (Catapres Tab) 0.1 mg Q4H PRN ORAL sbp more than 160 05/15/17 06:30 06/14/17 06:29 05/22/17 00:23 Clotrimazole (Lotrimin) 1 applic EVERY 12 HOURS TOPIC 05/20/17 09:00 06/19/17 08:59 05/23/17 08:23 Dextrose (Dextrose 50%) STAT PRN IV Hypoglycemia 05/18/17 07:30 06/17/17 07:29 05/21/17 16:03 Divalproex Sodium (Depakote) 1,000 mg EVERY 12 HOURS ORAL 05/15/17 21:00 06/14/17 20:59 05/23/17 08:21 Heparin Sodium (Porcine) (Heparin 5000 units/ml) 5,000 units EVERY 12 HOURS SUBQ 05/15/17 09:00 06/14/17 08:59 05/22/17 21:06 Insulin Aspart (NovoLOG) BEFORE MEALS AND HS SUBQ 05/15/17 06:30 06/14/17 06:29 05/23/17 06:37 Insulin Aspart (NovoLOG) 4 units NOVOTIAC SUBQ 05/23/17 06:30 06/22/17 06:29 05/23/17 06:39 Insulin Detemir (Levemir) 6 units Q12HR SUBQ 05/23/17 09:00 06/21/17 08:59 05/23/17 09:14 Levetiracetam (Keppra) 750 mg TWICE A DAY ORAL 05/15/17 09:00 06/14/17 08:59 05/23/17 08:22 Lisinopril (Zestril) 5 mg DAILY ORAL 05/15/17 09:00 06/14/17 08:59 05/23/17 08:21 Lorazepam (Ativan) 1 mg Q6H PRN ORAL For Anxiety 05/17/17 23:00 05/24/17 22:59 05/22/17 08:43 Nitroglycerin (Ntg) 0.4 mg Q5M X 3 DOSES PRN SL Prn Chest Pain 05/15/17 06:30 06/14/17 06:29 Ondansetron HCl (Zofran) 4 mg Q6H PRN IVP Nausea & Vomiting 05/15/17 06:30 06/14/17 06:29 05/15/17 09:49 Polyethylene Glycol (Miralax) 17 gm HSPRN PRN ORAL Constipation 05/15/17 06:30 06/14/17 06:29 Risperidone (RisperDAL) 3 mg BID ORAL 05/15/17 18:00 06/14/17 20:59 05/23/17 08:21 Sodium Chloride 1,000 ml @ 75 mls/hr [id number] IVLG 05/22/17 13:00 06/21/17 12:59 05/22/17 15:17 [facility] May 23, 2017 12:24
[2017-05-23] MEDS ORDERED: LORazepam 1mg tab ORAL PRN (12:36)
--- NOTE | 2017-05-23 22:38 | General Progress Note ---
Assessment/Plan Status: unchanged Assessment/Plan Assessment/Plan schizoaffective d/o DM -depakote -risperdal -haldol dec Subjective Date patient seen: May 23, 2017 Neurologic/Psychiatric: Reports: anxiety, depressed, emotional problems Allergies: Coded Allergies: No Known Allergies (Unverified , 05/07/17) Objective Last 24 Hour Vital Signs Date Time Temp Pulse Resp B/P (MAP) Pulse Ox O2 Delivery O2 Flow Rate FiO2 05/23/17 21:53 88 133/78 Room Air 05/23/17 20:22 97.9 71 18 164/82 100 05/23/17 18:23 80 152/84 05/23/17 17:27 164/77 05/23/17 16:00 98.1 64 20 164/77 100 05/23/17 11:38 97.7 71 20 136/80 99 05/23/17 08:21 151/93 05/23/17 08:21 78 151/93 05/23/17 08:00 96.3 82 20 156/101 100 05/23/17 07:41 74 20 Room Air 21 05/23/17 04:41 Room Air 05/23/17 04:00 97.0 78 18 151/93 100 Room Air 05/23/17 00:42 Room Air 05/23/17 00:00 97.9 69 20 131/68 100 Room Air Intake and Output 05/22/17 05/23/17 19:00 07:00 Intake Total 555 ml 900 ml Output Total 700 ml 2000 ml Balance -145 ml -1100 ml Intake Oral 480 ml IV Total 75 ml 900 ml Output Urine Total 700 ml 2000 ml # Voids 1 Laboratory Tests 05/23/17 04:05: Hemoglobin A1c 9.8H Height (Feet): 6 Height (Inches): 1.00 Weight (Pounds): 185 General Appearance: no apparent distress, alert, confused, agitated Marge Barrios M.D. May 23, 2017 22:38
[2017-05-24] VITALS (7 sets, daily range): BP systolic 122–175; BP diastolic 61–99
[2017-05-24] MEDS: NovoLOG Insulin Flexpen SUBQ SCH ×7 (06:11→21:16)
[2017-05-24] MEDS: Heparin 5000 units/ml inj SUBQ SCH ×2 (09:21→21:13)
[2017-05-24] MEDS: levETIRAcetam 500mg/5ml Liquid ORAL SCH ×2 (09:22→18:31)
[2017-05-24] MEDS: Aspirin EC 81mg tab ORAL SCH (09:22)
[2017-05-24] MEDS: Depakote 500mg tab ORAL SCH ×2 (09:23→21:12)
[2017-05-24] MEDS: Lisinopril 2.5mg tab ORAL SCH (09:31)
--- NOTE | 2017-05-24 09:40 | Pulmonology Progress Note ---
Assessment/Plan Assessment/Plan ASSESSMENT Hyperglycemia associated with type 1 DM seizure disorder HTN Hx of CVA schizoaffective disorder DM OOC Alcohol abuse PLAN OF CARE MS floor BS stable IVF on Levemir, pre-meal short acting and SSI prn [id number], not at goal , but stable in the hospital seizure precautions, continue Keppra and Depakote BP management with CCB and EN lipid panel stable, added ASA condom cath PT Rx Bowel regimen psych optimized psychiatric medic regimen dc plan, awaiting for disposition, ready for discharge case discussed and evaluated by supervising physician Subjective Allergies: Coded Allergies: No Known Allergies (Unverified , 05/07/17) Subjective behavior appropriated awaiting for disposition , labs stable this am ready for discharge Objective Last 24 Hour Vital Signs Date Time Temp Pulse Resp B/P (MAP) Pulse Ox O2 Delivery O2 Flow Rate FiO2 05/24/17 09:32 71 166/87 05/24/17 09:31 166/87 05/24/17 08:00 97.8 61 19 146/74 100 05/24/17 07:55 61 20 Room Air 21 05/24/17 04:24 Room Air 05/24/17 04:14 98.1 54 18 122/61 99 05/24/17 00:27 Room Air 05/24/17 00:16 98.1 74 17 134/77 99 05/23/17 21:53 88 133/78 Room Air 05/23/17 20:22 97.9 71 18 164/82 100 05/23/17 18:23 80 152/84 05/23/17 17:27 164/77 05/23/17 16:00 98.1 64 20 164/77 100 05/23/17 11:38 97.7 71 20 136/80 99 Intake and Output 05/23/17 05/24/17 19:00 07:00 Intake Total 585 ml 990 ml Output Total 375 ml 800 ml Balance 210 ml 190 ml Intake Oral 360 ml 240 ml IV Total 225 ml 750 ml Output Urine Total 375 ml 800 ml # Voids 2 Objective General Appearance: no acute distress HEENT: normocephalic, atraumatic, anicteric, mucous membranes moist Respiratory/Chest: lungs clear, no accessory muscle use Cardiovascular: normal peripheral pulses, normal rate, no JVD Abdomen: normal bowel sounds, soft, non tender, non distended Extremities: no edema, pedal pulses normal Neurologic/Psychiatric: alert, responsive Musculoskeletal: normal muscle bulk Current Medications Medications (Trade) Dose Ordered Sig/Christine Route PRN Reason Start Time Stop Time Status Last Admin Dose Admin Acetaminophen (Tylenol) 650 mg Q4H PRN ORAL fever 05/15/17 06:30 06/14/17 06:29 Al Hydroxide/Mg Hydroxide (Mylanta II) 30 ml Q6H PRN ORAL dyspepsia 05/15/17 06:30 06/14/17 06:29 Amlodipine Besylate (Norvasc) 10 mg DAILY ORAL 05/15/17 09:00 06/14/17 08:59 05/24/17 09:32 Aspirin (Ecotrin) 81 mg DAILY ORAL 05/21/17 09:00 06/20/17 08:59 05/24/17 09:22 Clonidine HCl (Catapres Tab) 0.1 mg Q4H PRN ORAL sbp more than 160 05/15/17 06:30 06/14/17 06:29 05/23/17 17:27 Clotrimazole (Lotrimin) 1 applic EVERY 12 HOURS TOPIC 05/20/17 09:00 06/19/17 08:59 05/24/17 09:33 Dextrose (Dextrose 50%) STAT PRN IV Hypoglycemia 05/18/17 07:30 06/17/17 07:29 05/24/17 06:04 Divalproex Sodium (Depakote) 1,000 mg EVERY 12 HOURS ORAL 05/15/17 21:00 06/14/17 20:59 05/24/17 09:23 Heparin Sodium (Porcine) (Heparin 5000 units/ml) 5,000 units EVERY 12 HOURS SUBQ 05/15/17 09:00 06/14/17 08:59 05/24/17 09:21 Insulin Aspart (NovoLOG) BEFORE MEALS AND HS SUBQ 05/15/17 06:30 06/14/17 06:29 05/23/17 20:41 Insulin Aspart (NovoLOG) 4 units NOVOTIAC SUBQ 05/23/17 06:30 06/22/17 06:29 05/23/17 17:26 Insulin Detemir (Levemir) 5 units Q12HR SUBQ 05/24/17 09:00 06/23/17 08:59 Levetiracetam (Keppra) 750 mg TWICE A DAY ORAL 05/15/17 09:00 06/14/17 08:59 05/24/17 09:22 Lisinopril (Zestril) 5 mg DAILY ORAL 05/15/17 09:00 06/14/17 08:59 05/24/17 09:31 Lorazepam (Ativan) 1 mg Q6H PRN ORAL For Anxiety 05/23/17 12:36 05/30/17 12:35 Nitroglycerin (Ntg) 0.4 mg Q5M X 3 DOSES PRN SL Prn Chest Pain 05/15/17 06:30 06/14/17 06:29 Ondansetron HCl (Zofran) 4 mg Q6H PRN IVP Nausea & Vomiting 05/15/17 06:30 06/14/17 06:29 05/15/17 09:49 Polyethylene Glycol (Miralax) 17 gm HSPRN PRN ORAL Constipation 05/15/17 06:30 06/14/17 06:29 Risperidone (RisperDAL) 3 mg BID ORAL 05/15/17 18:00 06/14/17 20:59 05/24/17 09:21 Sodium Chloride 1,000 ml @ 75 mls/hr [id number] IVLG 05/22/17 13:00 06/21/17 12:59 05/23/17 16:04 [facility] Limon [facility] May 24, 2017 09:40
[2017-05-24] MEDS: Levemir Flexpen SUBQ SCH ×2 (09:47→21:15)
[2017-05-24 10:46] LABS: BASOPHILS % (AUTO) 0.4 % (0.0-2.0); EOSINOPHILS % (AUTO) 0.4 % (0.0-3.0); HEMOGLOBIN 11.6 G/DL (14.2-18.0); MEAN CORPUSCULAR VOLUME 85 FL (80-99); MONOCYTES % (AUTO) 7.9 % (1.0-10.0); NEUTROPHILS % (AUTO) 73.2 % (45.0-75.0); PLATELET COUNT 268 K/UL (150-450); RED BLOOD COUNT 4.13 M/UL (4.70-6.10); RED CELL DISTRIBUTION WIDTH 13.7 % (11.6-14.8); WHITE BLOOD COUNT 5.4 K/UL (4.8-10.8)
[2017-05-24 10:55] LABS: ANION GAP 5 mmol/L (5-15); BLOOD UREA NITROGEN 12 mg/dL (7-18); CALCIUM 8.9 MG/DL (8.5-10.1); CARBON DIOXIDE 31 MMOL/L (21-32); CHLORIDE 103 MMOL/L (98-107); CREATININE 0.7 MG/DL (0.55-1.30); POTASSIUM 3.6 MMOL/L (3.5-5.1); SODIUM 139 MMOL/L (136-145)
--- NOTE | 2017-05-24 18:22 | General Progress Note ---
Assessment/Plan Status: stable Assessment/Plan Assessment/Plan schizoaffective d/o DM -depakote -risperdal -haldol mar Subjective Date patient seen: May 24, 2017 Neurologic/Psychiatric: Reports: anxiety, depressed, emotional problems Allergies: Coded Allergies: No Known Allergies (Unverified , 05/07/17) Objective Last 24 Hour Vital Signs Date Time Temp Pulse Resp B/P (MAP) Pulse Ox O2 Delivery O2 Flow Rate FiO2 05/24/17 15:43 97.0 81 18 152/99 100 Room Air 05/24/17 12:00 97.3 82 20 158/96 100 05/24/17 09:32 71 166/87 05/24/17 09:31 166/87 05/24/17 08:00 97.8 61 19 146/74 100 05/24/17 07:55 61 20 Room Air 21 05/24/17 04:24 Room Air 05/24/17 04:14 98.1 54 18 122/61 99 05/24/17 00:27 Room Air 05/24/17 00:16 98.1 74 17 134/77 99 05/23/17 21:53 88 133/78 Room Air 05/23/17 20:22 97.9 71 18 164/82 100 05/23/17 18:23 80 152/84 Intake and Output 05/23/17 05/24/17 19:00 07:00 Intake Total 585 ml 990 ml Output Total 375 ml 800 ml Balance 210 ml 190 ml Intake Oral 360 ml 240 ml IV Total 225 ml 750 ml Output Urine Total 375 ml 800 ml # Voids 2 Laboratory Tests 05/24/17 10:35: White Blood Count 5.4, Red Blood Count 4.13L, Hemoglobin 11.6L, Hematocrit 35.0L , Mean Corpuscular Volume 85, Mean Corpuscular Hemoglobin 28.0, Mean Corpuscular Hemoglobin Concent 33.0, Red Cell Distribution Width 13.7, Platelet Count 268, Mean Platelet Volume 7.0, Neutrophils (%) (Auto) 73.2, Lymphocytes (% ) (Auto) 18.0L, Monocytes (%) (Auto) 7.9, Eosinophils (%) (Auto) 0.4, Basophils (%) (Auto) 0.4, Sodium Level 139, Potassium Level 3.6, Chloride Level 103, Carbon Dioxide Level 31, Anion Gap 5, Blood Urea Nitrogen 12, Creatinine 0.7, Estimat Glomerular Filtration Rate > 60, Glucose Level 135H, Calcium Level 8.9 Height (Feet): 6 Height (Inches): 1.00 Weight (Pounds): 185 General Appearance: no apparent distress, alert, confused, agitated Marge Barrios M.D. May 24, 2017 18:22
[2017-05-25] VITALS (8 sets, daily range): BP systolic 110–186; BP diastolic 70–98
[2017-05-25] MEDS: NovoLOG Insulin Flexpen SUBQ SCH ×7 (06:16→21:27)
[2017-05-25] MEDS: Depakote 500mg tab ORAL SCH ×2 (10:30→20:31)
[2017-05-25] MEDS: levETIRAcetam 500mg/5ml Liquid ORAL SCH ×2 (10:31→18:00)
[2017-05-25] MEDS: Aspirin EC 81mg tab ORAL SCH (10:31)
[2017-05-25] MEDS: Lisinopril 2.5mg tab ORAL SCH (10:33)
[2017-05-25] MEDS: Heparin 5000 units/ml inj SUBQ SCH ×2 (10:38→20:56)
[2017-05-25] MEDS: Levemir Flexpen SUBQ SCH ×2 (10:39→21:26)
--- NOTE | 2017-05-25 13:03 | Pulmonology Progress Note ---
Assessment/Plan Assessment/Plan ASSESSMENT Hyperglycemia associated with type 1 DM seizure disorder HTN Hx of CVA schizoaffective disorder DM OOC Alcohol abuse PLAN OF CARE MS floor BS stable IVF on Levemir, pre-meal short acting and SSI prn [id number], not at goal , but stable in the hospital seizure precautions, continue Keppra and Depakote BP management with CCB and EN lipid panel stable, added ASA condom cath PT Rx Bowel regimen psych optimized psychiatric medic regimen dc plan, awaiting for disposition, ready for discharge case discussed and evaluated by supervising physician Subjective Allergies: Coded Allergies: No Known Allergies (Unverified , 05/07/17) Subjective behavior appropriated awaiting for placement Objective Last 24 Hour Vital Signs Date Time Temp Pulse Resp B/P (MAP) Pulse Ox O2 Delivery O2 Flow Rate FiO2 05/25/17 12:00 Room Air 05/25/17 12:00 97.7 95 19 158/92 100 05/25/17 10:33 151/83 05/25/17 10:32 83 151/83 05/25/17 08:00 Room Air 05/25/17 08:00 97.5 80 19 159/85 99 05/25/17 07:56 80 20 Room Air 21 05/25/17 03:37 97.5 79 20 165/91 100 Room Air 05/25/17 03:37 100 Room Air 05/24/17 23:16 100 Room Air 05/24/17 23:14 97.5 94 20 149/ 100 Room Air 05/24/17 20:22 90 20 Room Air 21 05/24/17 19:11 99 Room Air 05/24/17 19:11 98.1 91 20 175/87 99 Room Air 05/24/17 15:43 97.0 81 18 152/99 100 Room Air Intake and Output 05/24/17 05/25/17 19:00 07:00 Intake Total 1610 ml 900 ml Output Total 1100 ml 2700 ml Balance 510 ml -1800 ml Intake Oral 710 ml IV Total 900 ml 900 ml Output Urine Total 1100 ml 2700 ml # Bowel Movements 1 Objective General Appearance: no acute distress HEENT: normocephalic, atraumatic, anicteric, mucous membranes moist Respiratory/Chest: lungs clear, no accessory muscle use Cardiovascular: normal peripheral pulses, normal rate, no JVD Abdomen: normal bowel sounds, soft, non tender, non distended Extremities: no edema, pedal pulses normal Neurologic/Psychiatric: alert, responsive Musculoskeletal: normal muscle bulk Current Medications Medications (Trade) Dose Ordered Sig/Christine Route PRN Reason Start Time Stop Time Status Last Admin Dose Admin Acetaminophen (Tylenol) 650 mg Q4H PRN ORAL fever 05/15/17 06:30 06/14/17 06:29 Al Hydroxide/Mg Hydroxide (Mylanta II) 30 ml Q6H PRN ORAL dyspepsia 05/15/17 06:30 06/14/17 06:29 Amlodipine Besylate (Norvasc) 10 mg DAILY ORAL 05/15/17 09:00 06/14/17 08:59 05/25/17 10:32 Aspirin (Ecotrin) 81 mg DAILY ORAL 05/21/17 09:00 06/20/17 08:59 05/25/17 10:31 Clonidine HCl (Catapres Tab) 0.1 mg Q4H PRN ORAL sbp more than 160 05/15/17 06:30 06/14/17 06:29 05/23/17 17:27 Clotrimazole (Lotrimin) 1 applic EVERY 12 HOURS TOPIC 05/20/17 09:00 06/19/17 08:59 05/25/17 10:44 Dextrose (Dextrose 50%) STAT PRN IV Hypoglycemia 05/18/17 07:30 06/17/17 07:29 05/24/17 06:04 Divalproex Sodium (Depakote) 1,000 mg EVERY 12 HOURS ORAL 05/15/17 21:00 06/14/17 20:59 05/25/17 10:30 Heparin Sodium (Porcine) (Heparin 5000 units/ml) 5,000 units EVERY 12 HOURS SUBQ 05/15/17 09:00 06/14/17 08:59 05/25/17 10:38 Insulin Aspart (NovoLOG) BEFORE MEALS AND HS SUBQ 05/15/17 06:30 06/14/17 06:29 05/25/17 12:47 Insulin Aspart (NovoLOG) 4 units NOVOTIAC SUBQ 05/23/17 06:30 06/22/17 06:29 05/25/17 12:49 Insulin Detemir (Levemir) 10 units Q12HR SUBQ 05/25/17 09:00 06/24/17 08:59 05/25/17 10:39 Levetiracetam (Keppra) 750 mg TWICE A DAY ORAL 05/15/17 09:00 06/14/17 08:59 05/25/17 10:31 Lisinopril (Zestril) 5 mg DAILY ORAL 05/15/17 09:00 06/14/17 08:59 05/25/17 10:33 Lorazepam (Ativan) 1 mg Q6H PRN ORAL For Anxiety 05/23/17 12:36 05/30/17 12:35 05/24/17 21:12 Nitroglycerin (Ntg) 0.4 mg Q5M X 3 DOSES PRN SL Prn Chest Pain 05/15/17 06:30 06/14/17 06:29 Ondansetron HCl (Zofran) 4 mg Q6H PRN IVP Nausea & Vomiting 05/15/17 06:30 06/14/17 06:29 05/15/17 09:49 Polyethylene Glycol (Miralax) 17 gm HSPRN PRN ORAL Constipation 05/15/17 06:30 06/14/17 06:29 Risperidone (RisperDAL) 3 mg BID ORAL 05/15/17 18:00 06/14/17 20:59 05/25/17 10:32 Sodium Chloride 1,000 ml @ 75 mls/hr [id number] IVLG 05/22/17 13:00 06/21/17 12:59 05/25/17 01:05 Ksenia Obando NP ([facility]anchte[facility]) May 25, 2017 13:03
--- NOTE | 2017-05-25 16:00 | Geriatric Medicine Prog Note ---
DATE: 05/24/2017 NOTE: POOR AUDIO SUBJECTIVE: The patient is more comfortable today. He is tolerating oral feedings. OBJECTIVE: VITAL SIGNS: Blood pressure 129/91, pulse 94, respirations 22, and temperature 97.5 degrees. RESPIRATORY: Clear. CARDIOVASCULAR: Regular. LABORATORY DATA: Glucose 327. ASSESSMENT: [id number] Mekkitus stable PLAN: _Levemir Insulin 10 units q.12 hours, sliding scale NovoLog _QID ac and at bedtime Chaim Garcia M.D. DR: ELIGIO JOB#: [id number] CC: JASON
--- NOTE | 2017-05-25 17:30 | Progress Note ---
DATE: 05/25/2017 SUBJECTIVE: The patient continues to be disorganized, confused, at times agitated and calmer than baseline. MENTAL STATUS EXAMINATION: The patient is alert and oriented times self, place, and situation. Mood is dysphoric. Affect is constricted, congruent with mood. Thought process is concrete. Thought content, no suicidal or homicidal ideations. ASSESSMENT: 1. Psychosis. 2. Mood instability. PLAN: We will continue current medication. Provide the patient with supportive therapy and reality orientation. Marge Barrios M.D. DR: ALFONZO JOB#: [id number] CC:
[2017-05-26] VITALS (8 sets, daily range): BP systolic 123–160; BP diastolic 68–90
--- NOTE | 2017-05-26 05:31 | General Progress Note ---
Assessment/Plan Problem List: (1) Diabetes ICD Codes: E11.9 - Type 2 diabetes mellitus without complications SNOMED: 52286376 (2) Seizure disorder ICD Codes: G40.909 - Epilepsy, unspecified, not intractable, without status epilepticus SNOMED: 726630593 (3) HTN (hypertension) ICD Codes: I10 - Essential (primary) hypertension SNOMED: 16729335 (4) Psychosis ICD Codes: F29 - Unspecified psychosis not due to a substance or known physiological condition SNOMED: 77294575, 71332078 Qualifiers: Qualified Codes: F23 - Brief psychotic disorder (5) History of CVA (cerebrovascular accident) ICD Codes: Z86.73 - Personal history of transient ischemic attack (TIA), and cerebral infarction without residual deficits SNOMED: 703970572 (6) Behavioral disorder SNOMED: 649442198 Assessment/Plan continue Levemir 10 units bid continue Novolog 4 units ac tid continue with NISS Subjective Allergies: Coded Allergies: No Known Allergies (Unverified , 05/07/17) All Systems: reviewed and negative except above Subjective events noted Objective Last 24 Hour Vital Signs Date Time Temp Pulse Resp B/P (MAP) Pulse Ox O2 Delivery O2 Flow Rate FiO2 05/26/17 01:27 98.4 98.4 05/26/17 01:15 98.4 05/26/17 00:30 100.8 100.8 05/26/17 00:27 98 Room Air 05/26/17 00:19 100.8 99 22 149/90 100.8 05/26/17 00:16 100.8 05/25/17 22:11 104 153/81 98 Room Air 05/25/17 20:47 99.0 108 17 170/98 100 Room Air 99.0 05/25/17 20:43 170/98 05/25/17 20:00 100.9 113 17 186/93 99 Room Air 100.9 05/25/17 19:07 113 136/92 05/25/17 16:00 Room Air 05/25/17 16:00 97.2 78 19 110/70 98 97.2 05/25/17 12:00 Room Air 05/25/17 12:00 97.7 95 19 158/92 100 05/25/17 10:33 151/83 05/25/17 10:32 83 151/83 05/25/17 08:00 Room Air 05/25/17 08:00 97.5 80 19 159/85 99 05/25/17 07:56 80 20 Room Air 21 Intake and Output 05/25/17 05/26/17 19:00 07:00 Intake Total 1065 ml 525 ml Output Total 650 ml Balance 415 ml 525 ml Intake Oral 240 ml IV Total 825 ml 525 ml Output Urine Total 650 ml Height (Feet): 6 Height (Inches): 1.00 Weight (Pounds): 185 General Appearance: no apparent distress EENT: pale conjunctivae Neck: normal alignment Cardiovascular: normal rate Respiratory/Chest: lungs clear Abdomen: normal bowel sounds Objective Current Medications Medications (Trade) Dose Ordered Sig/Christine Route PRN Reason Start Time Stop Time Status Last Admin Dose Admin Acetaminophen (Tylenol) 650 mg Q4H PRN ORAL fever 05/15/17 06:30 06/14/17 06:29 05/26/17 00:16 Al Hydroxide/Mg Hydroxide (Mylanta II) 30 ml Q6H PRN ORAL dyspepsia 05/15/17 06:30 06/14/17 06:29 Amlodipine Besylate (Norvasc) 10 mg DAILY ORAL 05/15/17 09:00 06/14/17 08:59 05/25/17 10:32 Aspirin (Ecotrin) 81 mg DAILY ORAL 05/21/17 09:00 06/20/17 08:59 05/25/17 10:31 Clonidine HCl (Catapres Tab) 0.1 mg Q4H PRN ORAL sbp more than 160 05/15/17 06:30 06/14/17 06:29 05/25/17 20:43 Clotrimazole (Lotrimin) 1 applic EVERY 12 HOURS TOPIC 05/20/17 09:00 06/19/17 08:59 05/25/17 21:25 Dextrose (Dextrose 50%) STAT PRN IV Hypoglycemia 05/18/17 07:30 06/17/17 07:29 05/24/17 06:04 Divalproex Sodium (Depakote) 1,000 mg EVERY 12 HOURS ORAL 05/15/17 21:00 06/14/17 20:59 05/25/17 10:30 Heparin Sodium (Porcine) (Heparin 5000 units/ml) 5,000 units EVERY 12 HOURS SUBQ 05/15/17 09:00 06/14/17 08:59 05/25/17 20:56 Insulin Aspart (NovoLOG) BEFORE MEALS AND HS SUBQ 05/15/17 06:30 06/14/17 06:29 05/25/17 21:27 Insulin Aspart (NovoLOG) 4 units NOVOTIAC SUBQ 05/23/17 06:30 06/22/17 06:29 05/25/17 17:15 Insulin Detemir (Levemir) 10 units Q12HR SUBQ 05/25/17 09:00 06/24/17 08:59 05/25/17 21:26 Levetiracetam (Keppra) 750 mg TWICE A DAY ORAL 05/15/17 09:00 06/14/17 08:59 05/25/17 10:31 Lisinopril (Zestril) 5 mg DAILY ORAL 05/15/17 09:00 06/14/17 08:59 05/25/17 10:33 Lorazepam (Ativan) 1 mg Q6H PRN ORAL For Anxiety 05/23/17 12:36 05/30/17 12:35 05/24/17 21:12 Nitroglycerin (Ntg) 0.4 mg Q5M X 3 DOSES PRN SL Prn Chest Pain 05/15/17 06:30 06/14/17 06:29 Ondansetron HCl (Zofran) 4 mg Q6H PRN IVP Nausea & Vomiting 05/15/17 06:30 06/14/17 06:29 05/15/17 09:49 Polyethylene Glycol (Miralax) 17 gm HSPRN PRN ORAL Constipation 05/15/17 06:30 06/14/17 06:29 Risperidone (RisperDAL) 3 mg BID ORAL 05/15/17 18:00 06/14/17 20:59 05/25/17 10:32 Sodium Chloride 1,000 ml @ 75 mls/hr [id number] IVLG 05/22/17 13:00 06/21/17 12:59 05/25/17 17:26 Item Value Date Time Bedside Blood Glucose 227 mg/dl H 05/25/177 Bedside Blood Glucose 344 mg/dl H 05/25/17 1717 Bedside Blood Glucose 172 mg/dl H 05/25/17 1249 Bedside Blood Glucose 181 mg/dl H 05/25/17 1039 Bedside Blood Glucose 104 mg/dl 05/25/17 0617 TAMMY CHAPIN May 26, 2017 05:31
[2017-05-26] MEDS: NovoLOG Insulin Flexpen SUBQ SCH ×7 (06:06→20:53)
[2017-05-26] MEDS: Aspirin EC 81mg tab ORAL SCH (09:00)
[2017-05-26] MEDS: Depakote 500mg tab ORAL SCH ×2 (09:00→20:49)
[2017-05-26] MEDS: Heparin 5000 units/ml inj SUBQ SCH ×2 (09:00→20:50)
[2017-05-26] MEDS: Lisinopril 2.5mg tab ORAL SCH (09:00)
[2017-05-26] MEDS: levETIRAcetam 500mg/5ml Liquid ORAL SCH ×2 (09:00→17:31)
[2017-05-26] MEDS: Levemir Flexpen SUBQ SCH ×2 (11:39→20:51)
[2017-05-26 15:02] LABS: BASOPHILS % (AUTO) 0.5 % (0.0-2.0); EOSINOPHILS % (AUTO) 0.1 % (0.0-3.0); HEMATOCRIT 36.2 % (42.0-52.0); HEMOGLOBIN 11.7 G/DL (14.2-18.0); LYMPHOCYTES % (AUTO) 7.9 % (20.0-45.0); MEAN CORPUSCULAR VOLUME 85 FL (80-99); MONOCYTES % (AUTO) 7.5 % (1.0-10.0); NEUTROPHILS % (AUTO) 84.1 % (45.0-75.0); PLATELET COUNT 204 K/UL (150-450); RED BLOOD COUNT 4.27 M/UL (4.70-6.10); WHITE BLOOD COUNT 7.4 K/UL (4.8-10.8)
[2017-05-26 15:25] LABS: ANION GAP 6 mmol/L (5-15); BLOOD UREA NITROGEN 23 mg/dL (7-18); CALCIUM 8.8 MG/DL (8.5-10.1); CARBON DIOXIDE 29 MMOL/L (21-32); CHLORIDE 104 MMOL/L (98-107); POTASSIUM 4.2 MMOL/L (3.5-5.1); SODIUM 139 MMOL/L (136-145)
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
--- NOTE | 2017-05-26 15:48 | Pulmonology Progress Note ---
Assessment/Plan Problems: (1) Hyperglycemia due to type 1 diabetes mellitus (2) Seizure disorder (3) HTN (hypertension) (4) History of CVA (cerebrovascular accident) (5) Behavioral disorder (6) Diabetes (7) Psychosis Assessment/Plan sliding scale psych f/u check electrolytes dc planning d/w dr mcdaniel Subjective ROS Limited/Unobtainable: No Allergies: Coded Allergies: No Known Allergies (Unverified , 05/07/17) Objective Last 24 Hour Vital Signs Date Time Temp Pulse Resp B/P (MAP) Pulse Ox O2 Delivery O2 Flow Rate FiO2 05/26/17 12:00 97.3 69 20 160/77 98 97.3 05/26/17 09:00 123/73 05/26/17 09:00 98 123/73 05/26/17 08:00 97.5 98 20 123/73 97 97.5 05/26/17 04:00 98.7 65 22 138/68 99 Room Air 98.7 05/26/17 01:27 98.4 98.4 05/26/17 01:15 98.4 05/26/17 00:30 100.8 100.8 05/26/17 00:27 98 Room Air 05/26/17 00:19 100.8 99 22 149/90 100.8 05/26/17 00:16 100.8 05/25/17 22:11 104 153/81 98 Room Air 05/25/17 20:47 99.0 108 17 170/98 100 Room Air 99.0 05/25/17 20:43 170/98 05/25/17 20:00 100.9 113 17 186/93 99 Room Air 100.9 05/25/17 19:07 113 136/92 05/25/17 19:00 91 22 Room Air 21 05/25/17 16:00 Room Air 05/25/17 16:00 97.2 78 19 110/70 98 97.2 Intake and Output 05/25/17 05/26/17 19:00 07:00 Intake Total 1065 ml 750 ml Output Total 650 ml 300 ml Balance 415 ml 450 ml Intake Oral 240 ml IV Total 825 ml 750 ml Output Urine Total 650 ml 300 ml Objective General Appearance: no apparent distress Head: normocephalic, atraumatic Eyes: bilateral eye PERRL, bilateral eye EOMI ENT: normal pharynx, no angioedema Neck: supple, thyroid normal Respiratory: lungs clear, normal breath sounds Cardiovascular #1: regular rate, rhythm Gastrointestinal: non tender, soft Laboratory Tests 05/26/17 14:07: White Blood Count 7.4, Red Blood Count 4.27L, Hemoglobin 11.7L, Hematocrit 36.2L , Mean Corpuscular Volume 85, Mean Corpuscular Hemoglobin 27.3, Mean Corpuscular Hemoglobin Concent 32.2, Red Cell Distribution Width 14.0, Platelet Count 204, Mean Platelet Volume 6.5, Neutrophils (%) (Auto) 84.1H, Lymphocytes ( %) (Auto) 7.9L, Monocytes (%) (Auto) 7.5, Eosinophils (%) (Auto) 0.1, Basophils (%) (Auto) 0.5, Sodium Level 139, Potassium Level 4.2, Chloride Level 104, Carbon Dioxide Level 29, Anion Gap 6, Blood Urea Nitrogen 23H, Creatinine 1.0, Estimat Glomerular Filtration Rate > 60, Glucose Level 266H, Calcium Level 8.8, Valproic Acid (Depakene) Level 62 Current Medications Medications (Trade) Dose Ordered Sig/Christine Route PRN Reason Start Time Stop Time Status Last Admin Dose Admin Acetaminophen (Tylenol) 650 mg Q4H PRN ORAL fever 05/15/17 06:30 06/14/17 06:29 05/26/17 00:16 Al Hydroxide/Mg Hydroxide (Mylanta II) 30 ml Q6H PRN ORAL dyspepsia 05/15/17 06:30 06/14/17 06:29 Amlodipine Besylate (Norvasc) 10 mg DAILY ORAL 05/15/17 09:00 06/14/17 08:59 05/25/17 10:32 Aspirin (Ecotrin) 81 mg DAILY ORAL 05/21/17 09:00 06/20/17 08:59 05/25/17 10:31 Clonidine HCl (Catapres Tab) 0.1 mg Q4H PRN ORAL sbp more than 160 05/15/17 06:30 06/14/17 06:29 05/25/17 20:43 Clotrimazole (Lotrimin) 1 applic EVERY 12 HOURS TOPIC 05/20/17 09:00 06/19/17 08:59 05/26/17 10:50 Dextrose (Dextrose 50%) STAT PRN IV Hypoglycemia 05/18/17 07:30 06/17/17 07:29 05/26/17 11:43 Divalproex Sodium (Depakote) 1,000 mg EVERY 12 HOURS ORAL 05/15/17 21:00 06/14/17 20:59 05/25/17 10:30 Heparin Sodium (Porcine) (Heparin 5000 units/ml) 5,000 units EVERY 12 HOURS SUBQ 05/15/17 09:00 06/14/17 08:59 05/25/17 20:56 Insulin Aspart (NovoLOG) BEFORE MEALS AND HS SUBQ 05/15/17 06:30 06/14/17 06:29 05/25/17 21:27 Insulin Aspart (NovoLOG) 4 units NOVOTIAC SUBQ 05/23/17 06:30 06/22/17 06:29 05/25/17 17:15 Insulin Detemir (Levemir) 10 units Q12HR SUBQ 05/25/17 09:00 06/24/17 08:59 05/25/17 21:26 Levetiracetam (Keppra) 750 mg TWICE A DAY ORAL 05/15/17 09:00 06/14/17 08:59 05/25/17 10:31 Lisinopril (Zestril) 5 mg DAILY ORAL 05/15/17 09:00 06/14/17 08:59 05/25/17 10:33 Lorazepam (Ativan) 1 mg Q6H PRN ORAL For Anxiety 05/23/17 12:36 05/30/17 12:35 05/24/17 21:12 Nitroglycerin (Ntg) 0.4 mg Q5M X 3 DOSES PRN SL Prn Chest Pain 05/15/17 06:30 06/14/17 06:29 Ondansetron HCl (Zofran) 4 mg Q6H PRN IVP Nausea & Vomiting 05/15/17 06:30 06/14/17 06:29 05/15/17 09:49 Polyethylene Glycol (Miralax) 17 gm HSPRN PRN ORAL Constipation 05/15/17 06:30 06/14/17 06:29 Risperidone (RisperDAL) 3 mg BID ORAL 05/15/17 18:00 06/14/17 20:59 05/25/17 10:32 Sodium Chloride 1,000 ml @ 75 mls/hr [id number] IVLG 05/22/17 13:00 06/21/17 12:59 05/26/17 05:49 MAYRA GUTIERREZ May 26, 2017 15:48
--- NOTE | 2017-05-26 20:00 | Progress Note ---
DATE: 05/26/2017 SUBJECTIVE: The patient continues to be agitated. Poor insight and judgment. Continues to be delusional and has cognitive impairment. MENTAL STATUS EXAMINATION: Alert and oriented times self. Mood is neutral. Affect is flat. Thought process, there is a paucity of thought content. Thought content, no suicidal or homicidal ideations. ASSESSMENT: Schizoaffective disorder and cognitive impairment. PLAN: 1. We will continue current medications. 2. We will order valproic acid level. 3. We will continue to follow and readjust the medications. Marge Barrios M.D. DR: FATOU JOB#: [id number] CC:
[2017-05-27 04:20] VITALS: BP 145/79
[2017-05-27] MEDS: NovoLOG Insulin Flexpen SUBQ SCH ×8 (06:06→21:29)
[2017-05-27 08:00] VITALS: BP 155/80
[2017-05-27] MEDS: Levemir Flexpen SUBQ SCH ×2 (08:46→21:23)
[2017-05-27] MEDS: Depakote 500mg tab ORAL SCH ×2 (09:06→21:18)
[2017-05-27] MEDS: Aspirin EC 81mg tab ORAL SCH (09:07)
[2017-05-27] MEDS: levETIRAcetam 500mg/5ml Liquid ORAL SCH ×2 (09:08→18:04)
[2017-05-27] MEDS: Lisinopril 2.5mg tab ORAL SCH (09:09)
[2017-05-27] MEDS: Heparin 5000 units/ml inj SUBQ SCH ×2 (09:12→21:22)
--- NOTE | 2017-05-27 11:25 | General Progress Note ---
Assessment/Plan Status: stable Assessment/Plan Assessment/Plan schizoaffective d/o DM -depakote -risperdal -haldol dec -vp patient wnl Subjective Date patient seen: May 27, 2017 Neurologic/Psychiatric: Reports: anxiety, depressed, emotional problems Allergies: Coded Allergies: No Known Allergies (Unverified , 05/07/17) Objective Last 24 Hour Vital Signs Date Time Temp Pulse Resp B/P (MAP) Pulse Ox O2 Delivery O2 Flow Rate FiO2 05/27/17 09:09 155/80 05/27/17 09:08 79 155/80 05/27/17 08:00 97.9 79 19 155/80 100 97.9 05/27/17 04:25 98 Room Air 05/27/17 04:20 98.9 66 20 145/79 98 98.9 05/26/17 23:56 97 Room Air 05/26/17 23:56 98.7 91 20 156/84 97 98.7 05/26/17 20:00 98.9 90 20 158/84 98 98.9 05/26/17 20:00 98 Room Air 05/26/17 16:00 98.7 83 20 148/73 97 98.7 05/26/17 12:00 97.3 69 20 160/77 98 97.3 Intake and Output 05/26/17 05/27/17 19:00 07:00 Intake Total 1185 ml 1185 ml Output Total 600 ml 250 ml Balance 585 ml 935 ml Intake Oral 360 ml 360 ml IV Total 825 ml 825 ml Output Urine Total 600 ml 250 ml # Voids 1 Laboratory Tests 05/26/17 14:07: White Blood Count 7.4, Red Blood Count 4.27L, Hemoglobin 11.7L, Hematocrit 36.2L , Mean Corpuscular Volume 85, Mean Corpuscular Hemoglobin 27.3, Mean Corpuscular Hemoglobin Concent 32.2, Red Cell Distribution Width 14.0, Platelet Count 204, Mean Platelet Volume 6.5, Neutrophils (%) (Auto) 84.1H, Lymphocytes ( %) (Auto) 7.9L, Monocytes (%) (Auto) 7.5, Eosinophils (%) (Auto) 0.1, Basophils (%) (Auto) 0.5, Sodium Level 139, Potassium Level 4.2, Chloride Level 104, Carbon Dioxide Level 29, Anion Gap 6, Blood Urea Nitrogen 23H, Creatinine 1.0, Estimat Glomerular Filtration Rate > 60, Glucose Level 266H, Calcium Level 8.8, Valproic Acid (Depakene) Level 62 Height (Feet): 6 Height (Inches): 1.00 Weight (Pounds): 185 General Appearance: no apparent distress, confused Neurologic: alert, responsive, depressed affect Marge Barrios M.D. May 27, 2017 11:25
[2017-05-27 11:46] VITALS: BP 150/71
[2017-05-27 15:49] VITALS: BP 133/70
--- NOTE | 2017-05-27 17:00 | Pulmonology Progress Note ---
Assessment/Plan Problems: (1) Hyperglycemia due to type 1 diabetes mellitus (2) Seizure disorder (3) HTN (hypertension) (4) History of CVA (cerebrovascular accident) (5) Behavioral disorder (6) Diabetes (7) Psychosis Assessment/Plan looks comfortable sliding scale psych f/u check electrolytes dc planning d/w dr mcdaniel Subjective ROS Limited/Unobtainable: No Constitutional: Reports: no symptoms HEENT: Repors: no symptoms Allergies: Coded Allergies: No Known Allergies (Unverified , 05/07/17) Objective Last 24 Hour Vital Signs Date Time Temp Pulse Resp B/P (MAP) Pulse Ox O2 Delivery O2 Flow Rate FiO2 05/27/17 15:49 97.9 57 20 133/70 100 97.9 05/27/17 11:46 97.7 68 19 150/71 100 97.7 05/27/17 09:09 155/80 05/27/17 09:08 79 155/80 05/27/17 08:00 97.9 79 19 155/80 100 97.9 05/27/17 04:25 98 Room Air 05/27/17 04:20 98.9 66 20 145/79 98 98.9 05/26/17 23:56 97 Room Air 05/26/17 23:56 98.7 91 20 156/84 97 98.7 05/26/17 20:00 98.9 90 20 158/84 98 98.9 05/26/17 20:00 98 Room Air Intake and Output 05/26/17 05/27/17 19:00 07:00 Intake Total 1185 ml 1185 ml Output Total 600 ml 250 ml Balance 585 ml 935 ml Intake Oral 360 ml 360 ml IV Total 825 ml 825 ml Output Urine Total 600 ml 250 ml # Voids 1 Objective General Appearance: no apparent distress Head: normocephalic, atraumatic Eyes: bilateral eye PERRL, bilateral eye EOMI ENT: normal pharynx, no angioedema Neck: supple, thyroid normal Respiratory: lungs clear, normal breath sounds Cardiovascular #1: regular rate, rhythm Gastrointestinal: non tender, soft Current Medications Medications (Trade) Dose Ordered Sig/Christine Route PRN Reason Start Time Stop Time Status Last Admin Dose Admin Acetaminophen (Tylenol) 650 mg Q4H PRN ORAL fever 05/15/17 06:30 06/14/17 06:29 05/26/17 00:16 Al Hydroxide/Mg Hydroxide (Mylanta II) 30 ml Q6H PRN ORAL dyspepsia 05/15/17 06:30 06/14/17 06:29 Amlodipine Besylate (Norvasc) 10 mg DAILY ORAL 05/15/17 09:00 06/14/17 08:59 05/27/17 09:08 Aspirin (Ecotrin) 81 mg DAILY ORAL 05/21/17 09:00 06/20/17 08:59 05/27/17 09:07 Clonidine HCl (Catapres Tab) 0.1 mg Q4H PRN ORAL sbp more than 160 05/15/17 06:30 06/14/17 06:29 05/25/17 20:43 Clotrimazole (Lotrimin) 1 applic EVERY 12 HOURS TOPIC 05/20/17 09:00 06/19/17 08:59 05/27/17 09:09 Dextrose (Dextrose 50%) STAT PRN IV Hypoglycemia 05/18/17 07:30 06/17/17 07:29 05/26/17 11:43 Divalproex Sodium (Depakote) 1,000 mg EVERY 12 HOURS ORAL 05/15/17 21:00 06/14/17 20:59 05/27/17 09:06 Heparin Sodium (Porcine) (Heparin 5000 units/ml) 5,000 units EVERY 12 HOURS SUBQ 05/15/17 09:00 06/14/17 08:59 05/27/17 09:12 Insulin Aspart (NovoLOG) BEFORE MEALS AND HS SUBQ 05/15/17 06:30 06/14/17 06:29 05/26/17 20:53 Insulin Aspart (NovoLOG) 4 units NOVOTIAC SUBQ 05/23/17 06:30 06/22/17 06:29 05/26/17 17:18 Insulin Detemir (Levemir) 10 units Q12HR SUBQ 05/25/17 09:00 06/24/17 08:59 05/26/17 20:51 Levetiracetam (Keppra) 750 mg TWICE A DAY ORAL 05/15/17 09:00 06/14/17 08:59 05/27/17 09:08 Lisinopril (Zestril) 5 mg DAILY ORAL 05/15/17 09:00 06/14/17 08:59 05/27/17 09:09 Lorazepam (Ativan) 1 mg Q6H PRN ORAL For Anxiety 05/23/17 12:36 05/30/17 12:35 05/24/17 21:12 Nitroglycerin (Ntg) 0.4 mg Q5M X 3 DOSES PRN SL Prn Chest Pain 05/15/17 06:30 06/14/17 06:29 Ondansetron HCl (Zofran) 4 mg Q6H PRN IVP Nausea & Vomiting 05/15/17 06:30 06/14/17 06:29 05/15/17 09:49 Polyethylene Glycol (Miralax) 17 gm HSPRN PRN ORAL Constipation 05/15/17 06:30 06/14/17 06:29 Risperidone (RisperDAL) 3 mg BID ORAL 05/15/17 18:00 06/14/17 20:59 05/27/17 09:08 Sodium Chloride 1,000 ml @ 75 mls/hr [id number] IVLG 05/22/17 13:00 06/21/17 12:59 05/27/17 14:52 MAYRA GUTIERREZ May 27, 2017 17:00
[2017-05-27 19:20] VITALS: BP 138/76
[2017-05-28] VITALS (7 sets, daily range): BP systolic 128–175; BP diastolic 66–85
[2017-05-28] MEDS: NovoLOG Insulin Flexpen SUBQ SCH ×7 (06:30→21:19)
--- NOTE | 2017-05-28 07:23 | General Progress Note ---
Assessment/Plan Problem List: (1) Diabetes ICD Codes: E11.9 - Type 2 diabetes mellitus without complications SNOMED: 71799233 (2) Seizure disorder ICD Codes: G40.909 - Epilepsy, unspecified, not intractable, without status epilepticus SNOMED: 130956693 (3) HTN (hypertension) ICD Codes: I10 - Essential (primary) hypertension SNOMED: 02235251 (4) Psychosis ICD Codes: F29 - Unspecified psychosis not due to a substance or known physiological condition SNOMED: 07807943, 84790613 Qualifiers: Qualified Codes: F23 - Brief psychotic disorder (5) History of CVA (cerebrovascular accident) ICD Codes: Z86.73 - Personal history of transient ischemic attack (TIA), and cerebral infarction without residual deficits SNOMED: 232252448 (6) Behavioral disorder SNOMED: 046444358 Assessment/Plan reduce Levemir to 8 units bid continue Novolog 4 units ac tid continue with NISS Subjective ROS Limited/Unobtainable: Yes Allergies: Coded Allergies: No Known Allergies (Unverified , 05/07/17) Subjective events noted Objective Last 24 Hour Vital Signs Date Time Temp Pulse Resp B/P (MAP) Pulse Ox O2 Delivery O2 Flow Rate FiO2 05/28/17 03:28 97.5 73 20 128/66 98 Room Air 97.5 05/28/17 00:03 98.1 72 20 135/81 99 Room Air 98.1 05/27/17 19:20 97.7 77 20 138/76 99 Room Air 97.7 05/27/17 15:49 97.9 57 20 133/70 100 97.9 05/27/17 11:46 97.7 68 19 150/71 100 97.7 05/27/17 09:09 155/80 05/27/17 09:08 79 155/80 05/27/17 08:00 97.9 79 19 155/80 100 97.9 Intake and Output 05/27/17 05/28/17 19:00 07:00 Intake Total 840 ml 1470 ml Output Total 1100 ml 1000 ml Balance -260 ml 470 ml Intake Oral 240 ml 720 ml IV Total 600 ml 750 ml Output Urine Total 1100 ml 1000 ml Height (Feet): 6 Height (Inches): 1.00 Weight (Pounds): 185 General Appearance: no apparent distress Neck: normal alignment Cardiovascular: normal rate Respiratory/Chest: lungs clear Abdomen: normal bowel sounds Pelvis: normal external exam Edema: no edema noted Arm (L), no edema noted Arm (R), no edema noted Leg (L), no edema noted Leg (R), no edema noted Pedal (L), no edema noted Pedal (R), no edema noted Generalized Objective Current Medications Medications (Trade) Dose Ordered Sig/Christine Route PRN Reason Start Time Stop Time Status Last Admin Dose Admin Acetaminophen (Tylenol) 650 mg Q4H PRN ORAL fever 05/15/17 06:30 06/14/17 06:29 05/26/17 00:16 Al Hydroxide/Mg Hydroxide (Mylanta II) 30 ml Q6H PRN ORAL dyspepsia 05/15/17 06:30 06/14/17 06:29 Amlodipine Besylate (Norvasc) 10 mg DAILY ORAL 05/15/17 09:00 06/14/17 08:59 05/27/17 09:08 Aspirin (Ecotrin) 81 mg DAILY ORAL 05/21/17 09:00 06/20/17 08:59 05/27/17 09:07 Clonidine HCl (Catapres Tab) 0.1 mg Q4H PRN ORAL sbp more than 160 05/15/17 06:30 06/14/17 06:29 05/25/17 20:43 Clotrimazole (Lotrimin) 1 applic EVERY 12 HOURS TOPIC 05/20/17 09:00 06/19/17 08:59 05/27/17 21:25 Dextrose (Dextrose 50%) STAT PRN IV Hypoglycemia 05/18/17 07:30 06/17/17 07:29 05/26/17 11:43 Divalproex Sodium (Depakote) 1,000 mg EVERY 12 HOURS ORAL 05/15/17 21:00 06/14/17 20:59 05/27/17 21:18 Heparin Sodium (Porcine) (Heparin 5000 units/ml) 5,000 units EVERY 12 HOURS SUBQ 05/15/17 09:00 06/14/17 08:59 05/27/17 21:22 Insulin Aspart (NovoLOG) BEFORE MEALS AND HS SUBQ 05/15/17 06:30 06/14/17 06:29 05/27/17 21:29 Insulin Aspart (NovoLOG) 4 units NOVOTIAC SUBQ 05/23/17 06:30 06/22/17 06:29 05/26/17 17:18 Insulin Detemir (Levemir) 10 units Q12HR SUBQ 05/25/17 09:00 06/24/17 08:59 05/27/17 21:23 Levetiracetam (Keppra) 750 mg TWICE A DAY ORAL 05/15/17 09:00 06/14/17 08:59 05/27/17 18:04 Lisinopril (Zestril) 5 mg DAILY ORAL 05/15/17 09:00 06/14/17 08:59 05/27/17 09:09 Lorazepam (Ativan) 1 mg Q6H PRN ORAL For Anxiety 05/23/17 12:36 05/30/17 12:35 05/24/17 21:12 Nitroglycerin (Ntg) 0.4 mg Q5M X 3 DOSES PRN SL Prn Chest Pain 05/15/17 06:30 06/14/17 06:29 Ondansetron HCl (Zofran) 4 mg Q6H PRN IVP Nausea & Vomiting 05/15/17 06:30 06/14/17 06:29 05/15/17 09:49 Polyethylene Glycol (Miralax) 17 gm HSPRN PRN ORAL Constipation 05/15/17 06:30 06/14/17 06:29 Risperidone (RisperDAL) 3 mg BID ORAL 05/15/17 18:00 06/14/17 20:59 05/27/17 18:04 Sodium Chloride 1,000 ml @ 75 mls/hr [id number] IVLG 05/22/17 13:00 06/21/17 12:59 05/28/17 04:03 Item Value Date Time Bedside Blood Glucose 43 mg/dl L 05/28/17 0636 Bedside Blood Glucose 360 mg/dl H 05/27/17 2129 Bedside Blood Glucose 132 mg/dl H 05/27/17 1620 Bedside Blood Glucose 154 mg/dl H 05/27/17 1155 Bedside Blood Glucose 90 mg/dl 05/27/17 0846 Bedside Blood Glucose 90 mg/dl 05/27/17 0638 TAMMY CHAPIN May 28, 2017 07:23
[2017-05-28] MEDS: Levemir Flexpen SUBQ SCH ×2 (09:00→21:18)
[2017-05-28] MEDS: Aspirin EC 81mg tab ORAL SCH (09:08)
[2017-05-28] MEDS: Depakote 500mg tab ORAL SCH ×2 (09:08→21:16)
[2017-05-28] MEDS: levETIRAcetam 500mg/5ml Liquid ORAL SCH ×2 (09:08→17:14)
[2017-05-28] MEDS: Lisinopril 2.5mg tab ORAL SCH (09:09)
[2017-05-28] MEDS: Heparin 5000 units/ml inj SUBQ SCH ×2 (09:20→21:18)
--- NOTE | 2017-05-28 19:37 | General Progress Note ---
Assessment/Plan Assessment/Plan Assessment/Plan schizoaffective d/o DM -depakote -risperdal -haldol dec -vp data wnl Subjective Date patient seen: May 28, 2017 Neurologic/Psychiatric: Reports: anxiety, depressed, emotional problems Allergies: Coded Allergies: No Known Allergies (Unverified , 05/07/17) Objective Last 24 Hour Vital Signs Date Time Temp Pulse Resp B/P (MAP) Pulse Ox O2 Delivery O2 Flow Rate FiO2 05/28/17 18:52 152/75 05/28/17 16:00 97.4 71 175/85 97.4 05/28/17 12:16 97.7 65 20 152/74 100 97.7 05/28/17 09:09 137/67 05/28/17 09:09 67 137/67 05/28/17 08:01 98.2 54 20 137/67 98 98.2 05/28/17 03:28 97.5 73 20 128/66 98 Room Air 97.5 05/28/17 00:03 98.1 72 20 135/81 99 Room Air 98.1 Intake and Output 05/27/17 05/28/17 19:00 07:00 Intake Total 840 ml 1545 ml Output Total 1100 ml 1000 ml Balance -260 ml 545 ml Intake Oral 240 ml 720 ml IV Total 600 ml 825 ml Output Urine Total 1100 ml 1000 ml Height (Feet): 6 Height (Inches): 1.00 Weight (Pounds): 185 Marge Barrios M.D. May 28, 2017 19:37
[2017-05-29] VITALS: BP 147/73
[2017-05-29 02:59] VITALS: BP 138/69
[2017-05-29] MEDS: NovoLOG Insulin Flexpen SUBQ SCH ×6 (06:11→20:02)
[2017-05-29 08:00] VITALS: BP 159/87
[2017-05-29] MEDS: Levemir Flexpen SUBQ SCH ×2 (09:00→20:01)
[2017-05-29] MEDS: Aspirin EC 81mg tab ORAL SCH (09:12)
[2017-05-29] MEDS: Lisinopril 2.5mg tab ORAL SCH (09:13)
[2017-05-29] MEDS: Depakote 500mg tab ORAL SCH ×2 (09:14→20:04)
[2017-05-29] MEDS: levETIRAcetam 500mg/5ml Liquid ORAL SCH ×2 (09:14→18:14)
[2017-05-29] MEDS: Heparin 5000 units/ml inj SUBQ SCH ×2 (09:15→20:00)
--- NOTE | 2017-05-29 10:33 | Pulmonology Progress Note ---
Assessment/Plan Problems: (1) Hyperglycemia due to type 1 diabetes mellitus (2) Seizure disorder (3) HTN (hypertension) (4) History of CVA (cerebrovascular accident) (5) Behavioral disorder (6) Diabetes (7) Psychosis Assessment/Plan looks comfortable sliding scale psych f/u check electrolytes dc planning d/w dr mcdaniel Subjective ROS Limited/Unobtainable: No Constitutional: Reports: no symptoms HEENT: Repors: no symptoms Allergies: Coded Allergies: No Known Allergies (Unverified , 05/07/17) Objective Last 24 Hour Vital Signs Date Time Temp Pulse Resp B/P (MAP) Pulse Ox O2 Delivery O2 Flow Rate FiO2 05/29/17 09:13 159/87 05/29/17 09:13 73 159/87 05/29/17 08:00 97.3 73 19 159/87 100 97.3 05/29/17 02:59 97.2 72 20 138/69 100 Room Air 97.2 05/29/17 00:00 97.2 57 20 147/73 100 97.2 05/28/17 20:00 97.1 79 20 150/71 99 97.1 05/28/17 18:52 152/75 05/28/17 16:00 97.4 71 175/85 97.4 05/28/17 12:16 97.7 65 20 152/74 100 97.7 Intake and Output 05/28/17 05/29/17 19:00 07:00 Intake Total 1545 ml 750 ml Output Total 300 ml 1500 ml Balance 1245 ml -750 ml Intake Oral 720 ml IV Total 825 ml 750 ml Output Urine Total 300 ml 1500 ml # Voids 1 6 # Bowel Movements 1 Objective General Appearance: no apparent distress Head: normocephalic, atraumatic Eyes: bilateral eye PERRL, bilateral eye EOMI ENT: normal pharynx, no angioedema Neck: supple, thyroid normal Respiratory: lungs clear, normal breath sounds Cardiovascular #1: regular rate, rhythm Gastrointestinal: non tender, soft Current Medications Medications (Trade) Dose Ordered Sig/Christine Route PRN Reason Start Time Stop Time Status Last Admin Dose Admin Acetaminophen (Tylenol) 650 mg Q4H PRN ORAL fever 05/15/17 06:30 06/14/17 06:29 05/26/17 00:16 Al Hydroxide/Mg Hydroxide (Mylanta II) 30 ml Q6H PRN ORAL dyspepsia 05/15/17 06:30 06/14/17 06:29 Amlodipine Besylate (Norvasc) 10 mg DAILY ORAL 05/15/17 09:00 06/14/17 08:59 05/29/17 09:13 Aspirin (Ecotrin) 81 mg DAILY ORAL 05/21/17 09:00 06/20/17 08:59 05/29/17 09:12 Clonidine HCl (Catapres Tab) 0.1 mg Q4H PRN ORAL sbp more than 160 05/15/17 06:30 06/14/17 06:29 05/25/17 20:43 Clotrimazole (Lotrimin) 1 applic EVERY 12 HOURS TOPIC 05/20/17 09:00 06/19/17 08:59 05/28/17 21:16 Dextrose (Dextrose 50%) STAT PRN IV Hypoglycemia 05/18/17 07:30 06/17/17 07:29 05/29/17 05:11 Divalproex Sodium (Depakote) 1,000 mg EVERY 12 HOURS ORAL 05/15/17 21:00 06/14/17 20:59 05/29/17 09:14 Heparin Sodium (Porcine) (Heparin 5000 units/ml) 5,000 units EVERY 12 HOURS SUBQ 05/15/17 09:00 06/14/17 08:59 05/29/17 09:15 Insulin Aspart (NovoLOG) BEFORE MEALS AND HS SUBQ 05/15/17 06:30 06/14/17 06:29 05/28/17 21:19 Insulin Aspart (NovoLOG) 4 units NOVOTIAC SUBQ 05/23/17 06:30 06/22/17 06:29 05/28/17 16:50 Insulin Detemir (Levemir) 8 units Q12HR SUBQ 05/28/17 09:00 06/27/17 08:59 05/28/17 21:18 Levetiracetam (Keppra) 750 mg TWICE A DAY ORAL 05/15/17 09:00 06/14/17 08:59 05/29/17 09:14 Lisinopril (Zestril) 5 mg DAILY ORAL 05/15/17 09:00 06/14/17 08:59 05/29/17 09:13 Lorazepam (Ativan) 1 mg Q6H PRN ORAL For Anxiety 05/23/17 12:36 05/30/17 12:35 05/24/17 21:12 Nitroglycerin (Ntg) 0.4 mg Q5M X 3 DOSES PRN SL Prn Chest Pain 05/15/17 06:30 06/14/17 06:29 Ondansetron HCl (Zofran) 4 mg Q6H PRN IVP Nausea & Vomiting 05/15/17 06:30 06/14/17 06:29 05/15/17 09:49 Polyethylene Glycol (Miralax) 17 gm HSPRN PRN ORAL Constipation 05/15/17 06:30 06/14/17 06:29 Risperidone (RisperDAL) 3 mg BID ORAL 05/15/17 18:00 06/14/17 20:59 05/29/17 09:13 Sodium Chloride 1,000 ml @ 75 mls/hr [id number] IVLG 05/22/17 13:00 06/21/17 12:59 05/29/17 05:24 MAYRA GUTIERREZ May 29, 2017 10:33
[2017-05-29 12:00] VITALS: BP 140/65
--- NOTE | 2017-05-29 14:13 | General Progress Note ---
Assessment/Plan Problem List: (1) Diabetes ICD Codes: E11.9 - Type 2 diabetes mellitus without complications SNOMED: 94179404 (2) Seizure disorder ICD Codes: G40.909 - Epilepsy, unspecified, not intractable, without status epilepticus SNOMED: 138265230 (3) HTN (hypertension) ICD Codes: I10 - Essential (primary) hypertension SNOMED: 36925745 (4) Psychosis ICD Codes: F29 - Unspecified psychosis not due to a substance or known physiological condition SNOMED: 60097894, 77899749 Qualifiers: Qualified Codes: F23 - Brief psychotic disorder (5) History of CVA (cerebrovascular accident) ICD Codes: Z86.73 - Personal history of transient ischemic attack (TIA), and cerebral infarction without residual deficits SNOMED: 925871036 (6) Behavioral disorder SNOMED: 892549030 Assessment/Plan reduce Levemir to 6 units qhs discontinue Novolog 4 units ac tid continue with NISS Subjective ROS Limited/Unobtainable: Yes Allergies: Coded Allergies: No Known Allergies (Unverified , 05/07/17) Subjective events noted hypoglycemic Objective Last 24 Hour Vital Signs Date Time Temp Pulse Resp B/P (MAP) Pulse Ox O2 Delivery O2 Flow Rate FiO2 05/29/17 12:00 97.6 63 19 140/65 99 97.6 05/29/17 09:13 159/87 05/29/17 09:13 73 159/87 05/29/17 08:00 97.3 73 19 159/87 100 97.3 05/29/17 02:59 97.2 72 20 138/69 100 Room Air 97.2 05/29/17 00:00 97.2 57 20 147/73 100 97.2 05/28/17 20:00 97.1 79 20 150/71 99 97.1 05/28/17 18:52 152/75 05/28/17 16:00 97.4 71 175/85 97.4 Intake and Output 05/28/17 05/29/17 19:00 07:00 Intake Total 1545 ml 750 ml Output Total 300 ml 1500 ml Balance 1245 ml -750 ml Intake Oral 720 ml IV Total 825 ml 750 ml Output Urine Total 300 ml 1500 ml # Voids 1 6 # Bowel Movements 1 Laboratory Tests 05/29/17 13:40: Glucose Level [Pending] Height (Feet): 6 Height (Inches): 1.00 Weight (Pounds): 185 General Appearance: no apparent distress Neck: normal alignment Cardiovascular: normal rate Respiratory/Chest: lungs clear Abdomen: normal bowel sounds Objective Current Medications Medications (Trade) Dose Ordered Sig/Christine Route PRN Reason Start Time Stop Time Status Last Admin Dose Admin Acetaminophen (Tylenol) 650 mg Q4H PRN ORAL fever 05/15/17 06:30 06/14/17 06:29 05/26/17 00:16 Al Hydroxide/Mg Hydroxide (Mylanta II) 30 ml Q6H PRN ORAL dyspepsia 05/15/17 06:30 06/14/17 06:29 Amlodipine Besylate (Norvasc) 10 mg DAILY ORAL 05/15/17 09:00 06/14/17 08:59 05/29/17 09:13 Aspirin (Ecotrin) 81 mg DAILY ORAL 05/21/17 09:00 06/20/17 08:59 05/29/17 09:12 Clonidine HCl (Catapres Tab) 0.1 mg Q4H PRN ORAL sbp more than 160 05/15/17 06:30 06/14/17 06:29 05/25/17 20:43 Clotrimazole (Lotrimin) 1 applic EVERY 12 HOURS TOPIC 05/20/17 09:00 06/19/17 08:59 05/29/17 11:16 Dextrose (Dextrose 50%) STAT PRN IV Hypoglycemia 05/18/17 07:30 06/17/17 07:29 05/29/17 12:30 Divalproex Sodium (Depakote) 1,000 mg EVERY 12 HOURS ORAL 05/15/17 21:00 06/14/17 20:59 05/29/17 09:14 Heparin Sodium (Porcine) (Heparin 5000 units/ml) 5,000 units EVERY 12 HOURS SUBQ 05/15/17 09:00 06/14/17 08:59 05/29/17 09:15 Insulin Aspart (NovoLOG) BEFORE MEALS AND HS SUBQ 05/15/17 06:30 06/14/17 06:29 05/28/17 21:19 Insulin Aspart (NovoLOG) 4 units NOVOTIAC SUBQ 05/23/17 06:30 06/22/17 06:29 05/28/17 16:50 Insulin Detemir (Levemir) 8 units Q12HR SUBQ 05/28/17 09:00 06/27/17 08:59 05/28/17 21:18 Levetiracetam (Keppra) 750 mg TWICE A DAY ORAL 05/15/17 09:00 06/14/17 08:59 05/29/17 09:14 Lisinopril (Zestril) 5 mg DAILY ORAL 05/15/17 09:00 06/14/17 08:59 05/29/17 09:13 Lorazepam (Ativan) 1 mg Q6H PRN ORAL For Anxiety 05/23/17 12:36 05/30/17 12:35 05/24/17 21:12 Nitroglycerin (Ntg) 0.4 mg Q5M X 3 DOSES PRN SL Prn Chest Pain 05/15/17 06:30 06/14/17 06:29 Ondansetron HCl (Zofran) 4 mg Q6H PRN IVP Nausea & Vomiting 05/15/17 06:30 06/14/17 06:29 05/15/17 09:49 Polyethylene Glycol (Miralax) 17 gm HSPRN PRN ORAL Constipation 05/15/17 06:30 06/14/17 06:29 Risperidone (RisperDAL) 3 mg BID ORAL 05/15/17 18:00 06/14/17 20:59 05/29/17 09:13 Sodium Chloride 1,000 ml @ 75 mls/hr [id number] IVLG 05/22/17 13:00 06/21/17 12:59 05/29/17 05:24 Item Value Date Time Bedside Blood Glucose Critically Low Result 05/29/17 1230 Bedside Blood Glucose 65 mg/dl L 05/29/17 0900 Bedside Blood Glucose 42 mg/dl L 05/29/17 0612 Bedside Blood Glucose 248 mg/dl H 05/28/17 2119 Bedside Blood Glucose 201 mg/dl H 05/28/17 1650 Bedside Blood Glucose 191 mg/dl H 05/28/17 1224 Bedside Blood Glucose 43 mg/dl L 05/28/17 0900 TAMMY CHAPIN May 29, 2017 14:13
[2017-05-29 16:00] VITALS: BP 160/88
[2017-05-29 20:00] VITALS: BP 158/110
[2017-05-30] VITALS: BP 156/83
[2017-05-30 04:00] VITALS: BP 169/80
[2017-05-30] MEDS: NovoLOG Insulin Flexpen SUBQ SCH ×4 (05:50→20:42)
--- NOTE | 2017-05-30 07:09 | General Progress Note ---
Assessment/Plan Problem List: (1) Diabetes ICD Codes: E11.9 - Type 2 diabetes mellitus without complications SNOMED: 95355642 (2) Seizure disorder ICD Codes: G40.909 - Epilepsy, unspecified, not intractable, without status epilepticus SNOMED: 478777589 (3) HTN (hypertension) ICD Codes: I10 - Essential (primary) hypertension SNOMED: 20419066 (4) Psychosis ICD Codes: F29 - Unspecified psychosis not due to a substance or known physiological condition SNOMED: 33962666, 39106329 Qualifiers: Qualified Codes: F23 - Brief psychotic disorder (5) History of CVA (cerebrovascular accident) ICD Codes: Z86.73 - Personal history of transient ischemic attack (TIA), and cerebral infarction without residual deficits SNOMED: 825774972 (6) Behavioral disorder SNOMED: 699634742 Assessment/Plan continue Levemir 6 units qhs continue with NISS Subjective Allergies: Coded Allergies: No Known Allergies (Unverified , 05/07/17) All Systems: reviewed and negative except above Subjective events noted fasting glucose improved Objective Last 24 Hour Vital Signs Date Time Temp Pulse Resp B/P (MAP) Pulse Ox O2 Delivery O2 Flow Rate FiO2 05/30/17 04:42 169/80 05/30/17 04:00 98.4 88 21 169/80 97 Room Air 98.4 05/30/17 00:00 98.2 88 20 156/83 98 Room Air 98.2 05/29/17 20:00 97.7 70 18 158/110 97 Room Air 97.7 05/29/17 18:19 160/88 05/29/17 16:00 98.2 78 20 160/88 98 98.2 05/29/17 12:00 97.6 63 19 140/65 99 97.6 05/29/17 09:13 159/87 05/29/17 09:13 73 159/87 05/29/17 08:00 97.3 73 19 159/87 100 97.3 Intake and Output 05/29/17 05/30/17 19:00 07:00 Intake Total 635 ml 525 ml Output Total 1100 ml 800 ml Balance -465 ml -275 ml Intake Oral 560 ml IV Total 75 ml 525 ml Output Urine Total 1100 ml 800 ml # Voids 3 Laboratory Tests 05/29/17 13:40: Glucose Level 94 Height (Feet): 6 Height (Inches): 1.00 Weight (Pounds): 185 General Appearance: no apparent distress Neck: normal alignment Cardiovascular: normal rate Respiratory/Chest: lungs clear Abdomen: non tender Objective Current Medications Medications (Trade) Dose Ordered Sig/Christine Route PRN Reason Start Time Stop Time Status Last Admin Dose Admin Acetaminophen (Tylenol) 650 mg Q4H PRN ORAL fever 05/15/17 06:30 06/14/17 06:29 05/26/17 00:16 Al Hydroxide/Mg Hydroxide (Mylanta II) 30 ml Q6H PRN ORAL dyspepsia 05/15/17 06:30 06/14/17 06:29 Amlodipine Besylate (Norvasc) 10 mg DAILY ORAL 05/15/17 09:00 06/14/17 08:59 05/29/17 09:13 Aspirin (Ecotrin) 81 mg DAILY ORAL 05/21/17 09:00 06/20/17 08:59 05/29/17 09:12 Clonidine HCl (Catapres Tab) 0.1 mg Q4H PRN ORAL sbp more than 160 05/15/17 06:30 06/14/17 06:29 05/30/17 04:42 Clotrimazole (Lotrimin) 1 applic EVERY 12 HOURS TOPIC 05/20/17 09:00 06/19/17 08:59 05/29/17 20:03 Dextrose (Dextrose 50%) STAT PRN IV Hypoglycemia 05/18/17 07:30 06/17/17 07:29 05/29/17 05:11 Divalproex Sodium (Depakote) 1,000 mg EVERY 12 HOURS ORAL 05/15/17 21:00 06/14/17 20:59 05/29/17 20:04 Heparin Sodium (Porcine) (Heparin 5000 units/ml) 5,000 units EVERY 12 HOURS SUBQ 05/15/17 09:00 06/14/17 08:59 05/29/17 20:00 Insulin Aspart (NovoLOG) BEFORE MEALS AND HS SUBQ 05/15/17 06:30 06/14/17 06:29 05/30/17 05:50 Insulin Detemir (Levemir) 6 units BEDTIME SUBQ 05/29/17 21:00 06/27/17 08:59 05/29/17 20:01 Levetiracetam (Keppra) 750 mg TWICE A DAY ORAL 05/15/17 09:00 06/14/17 08:59 05/29/17 18:14 Lisinopril (Zestril) 5 mg DAILY ORAL 05/15/17 09:00 06/14/17 08:59 05/29/17 09:13 Lorazepam (Ativan) 1 mg Q6H PRN ORAL For Anxiety 05/23/17 12:36 05/30/17 12:35 05/24/17 21:12 Nitroglycerin (Ntg) 0.4 mg Q5M X 3 DOSES PRN SL Prn Chest Pain 05/15/17 06:30 06/14/17 06:29 Ondansetron HCl (Zofran) 4 mg Q6H PRN IVP Nausea & Vomiting 05/15/17 06:30 06/14/17 06:29 05/15/17 09:49 Polyethylene Glycol (Miralax) 17 gm HSPRN PRN ORAL Constipation 05/15/17 06:30 06/14/17 06:29 Risperidone (RisperDAL) 3 mg BID ORAL 05/15/17 18:00 06/14/17 20:59 05/29/17 18:08 Sodium Chloride 1,000 ml @ 75 mls/hr [id number] IVLG 05/22/17 13:00 06/21/17 12:59 05/29/17 20:04 Item Value Date Time Bedside Blood Glucose 122 mg/dl H 05/30/17 0550 Bedside Blood Glucose 324 mg/dl H 05/29/172001 Bedside Blood Glucose 171 mg/dl H 05/29/17 1725 Bedside Blood Glucose 69 mg/dl L 05/29/17 1150 Bedside Blood Glucose 65 mg/dl L 05/29/17 0900 TAMMY CHAPIN May 30, 2017 07:09
[2017-05-30 08:00] VITALS: BP 159/69
[2017-05-30] MEDS: Aspirin EC 81mg tab ORAL SCH (10:09)
[2017-05-30] MEDS: Depakote 500mg tab ORAL SCH ×2 (10:09→20:40)
[2017-05-30] MEDS: Lisinopril 2.5mg tab ORAL SCH (10:10)
[2017-05-30] MEDS: levETIRAcetam 500mg/5ml Liquid ORAL SCH ×2 (10:10→18:02)
[2017-05-30] MEDS: Heparin 5000 units/ml inj SUBQ SCH ×2 (10:19→20:38)
[2017-05-30 11:39] VITALS: BP 154/66
[2017-05-30 16:00] VITALS: BP 150/84
--- NOTE | 2017-05-30 17:40 | Pulmonology Progress Note ---
Assessment/Plan Problems: (1) Hyperglycemia due to type 1 diabetes mellitus (2) Seizure disorder (3) HTN (hypertension) (4) History of CVA (cerebrovascular accident) (5) Behavioral disorder (6) Diabetes (7) Psychosis Assessment/Plan looks comfortable sliding scale psych f/u check electrolytes dc planning d/w dr mcdaniel Subjective ROS Limited/Unobtainable: Yes Allergies: Coded Allergies: No Known Allergies (Unverified , 05/07/17) Objective Last 24 Hour Vital Signs Date Time Temp Pulse Resp B/P (MAP) Pulse Ox O2 Delivery O2 Flow Rate FiO2 05/30/17 16:00 97.3 57 20 150/84 100 97.3 05/30/17 11:39 97.7 55 18 154/66 97 Room Air 97.7 05/30/17 10:10 159/69 05/30/17 10:10 159/69 05/30/17 10:09 61 159/69 05/30/17 08:00 97.5 61 18 159/69 98 Room Air 97.5 05/30/17 04:42 169/80 05/30/17 04:00 98.4 88 21 169/80 97 Room Air 98.4 05/30/17 00:00 98.2 88 20 156/83 98 Room Air 98.2 05/29/17 20:00 97.7 70 18 158/110 97 Room Air 97.7 05/29/17 18:19 160/88 Intake and Output 05/29/17 05/30/17 19:00 07:00 Intake Total 635 ml 825 ml Output Total 1100 ml 800 ml Balance -465 ml 25 ml Intake Oral 560 ml IV Total 75 ml 825 ml Output Urine Total 1100 ml 800 ml # Voids 3 Objective General Appearance: no apparent distress Head: normocephalic, atraumatic Eyes: bilateral eye PERRL, bilateral eye EOMI ENT: normal pharynx, no angioedema Neck: supple, thyroid normal Respiratory: lungs clear, normal breath sounds Cardiovascular #1: regular rate, rhythm Gastrointestinal: non tender, soft Current Medications Medications (Trade) Dose Ordered Sig/Christine Route PRN Reason Start Time Stop Time Status Last Admin Dose Admin Acetaminophen (Tylenol) 650 mg Q4H PRN ORAL fever 05/15/17 06:30 06/14/17 06:29 05/26/17 00:16 Al Hydroxide/Mg Hydroxide (Mylanta II) 30 ml Q6H PRN ORAL dyspepsia 05/15/17 06:30 06/14/17 06:29 Amlodipine Besylate (Norvasc) 10 mg DAILY ORAL 05/15/17 09:00 06/14/17 08:59 05/30/17 10:09 Aspirin (Ecotrin) 81 mg DAILY ORAL 05/21/17 09:00 06/20/17 08:59 05/30/17 10:09 Clonidine HCl (Catapres Tab) 0.1 mg Q4H PRN ORAL sbp more than 160 05/15/17 06:30 06/14/17 06:29 05/30/17 10:10 Clotrimazole (Lotrimin) 1 applic EVERY 12 HOURS TOPIC 05/20/17 09:00 06/19/17 08:59 05/30/17 10:19 Dextrose (Dextrose 50%) STAT PRN IV Hypoglycemia 05/18/17 07:30 06/17/17 07:29 05/29/17 05:11 Divalproex Sodium (Depakote) 1,000 mg EVERY 12 HOURS ORAL 05/15/17 21:00 06/14/17 20:59 05/30/17 10:09 Heparin Sodium (Porcine) (Heparin 5000 units/ml) 5,000 units EVERY 12 HOURS SUBQ 05/15/17 09:00 06/14/17 08:59 05/30/17 10:19 Insulin Aspart (NovoLOG) BEFORE MEALS AND HS SUBQ 05/15/17 06:30 06/14/17 06:29 05/30/17 12:12 Insulin Detemir (Levemir) 6 units BEDTIME SUBQ 05/29/17 21:00 06/27/17 08:59 05/29/17 20:01 Levetiracetam (Keppra) 750 mg TWICE A DAY ORAL 05/15/17 09:00 06/14/17 08:59 05/30/17 10:10 Lisinopril (Zestril) 5 mg DAILY ORAL 05/15/17 09:00 06/14/17 08:59 05/30/17 10:10 Nitroglycerin (Ntg) 0.4 mg Q5M X 3 DOSES PRN SL Prn Chest Pain 05/15/17 06:30 06/14/17 06:29 Ondansetron HCl (Zofran) 4 mg Q6H PRN IVP Nausea & Vomiting 05/15/17 06:30 06/14/17 06:29 05/15/17 09:49 Polyethylene Glycol (Miralax) 17 gm HSPRN PRN ORAL Constipation 05/15/17 06:30 06/14/17 06:29 Risperidone (RisperDAL) 3 mg BID ORAL 05/15/17 18:00 06/14/17 20:59 05/30/17 10:05 Sodium Chloride 1,000 ml @ 75 mls/hr [id number] IVLG 05/22/17 13:00 06/21/17 12:59 05/29/17 20:04 MAYRA GUTIERREZ May 30, 2017 17:40
[2017-05-30 20:00] VITALS: BP 161/74
[2017-05-30] MEDS: Levemir Flexpen SUBQ SCH (20:43)
[2017-05-31] VITALS (8 sets, daily range): BP systolic 146–164; BP diastolic 69–87
[2017-05-31] MEDS: NovoLOG Insulin Flexpen SUBQ SCH ×4 (05:41→20:56)
[2017-05-31 07:29] LABS: BASOPHILS % (AUTO) 0.5 % (0.0-2.0); EOSINOPHILS % (AUTO) 0.9 % (0.0-3.0); HEMATOCRIT 32.9 % (42.0-52.0); LYMPHOCYTES % (AUTO) 15.5 % (20.0-45.0); MEAN CORPUSCULAR VOLUME 83 FL (80-99); MONOCYTES % (AUTO) 8.2 % (1.0-10.0); NEUTROPHILS % (AUTO) 74.9 % (45.0-75.0); PLATELET COUNT 196 K/UL (150-450); RED BLOOD COUNT 3.94 M/UL (4.70-6.10); RED CELL DISTRIBUTION WIDTH 13.9 % (11.6-14.8); WHITE BLOOD COUNT 5.9 K/UL (4.8-10.8)
[2017-05-31 07:49] LABS: ALANINE AMINOTRANSFERASE 6 U/L (12-78); ALBUMIN/GLOBULIN RATIO 0.5 (1.0-2.7); ALKALINE PHOSPHATASE 92 U/L (46-116); ANION GAP 1 mmol/L (5-15); ASPARTATE AMINO TRANSFERASE 21 U/L (15-37); BILIRUBIN,TOTAL 0.1 MG/DL (0.2-1.0); BLOOD UREA NITROGEN 11 mg/dL (7-18); CALCIUM 8.7 MG/DL (8.5-10.1); CARBON DIOXIDE 34 MMOL/L (21-32); CHLORIDE 106 MMOL/L (98-107); CREATININE 0.8 MG/DL (0.55-1.30); POTASSIUM 3.6 MMOL/L (3.5-5.1); SODIUM 141 MMOL/L (136-145)
[2017-05-31] MEDS: levETIRAcetam 500mg/5ml Liquid ORAL SCH ×2 (08:38→17:12)
[2017-05-31] MEDS: Aspirin EC 81mg tab ORAL SCH (08:39)
[2017-05-31] MEDS: Depakote 500mg tab ORAL SCH ×2 (08:39→20:53)
[2017-05-31] MEDS: Lisinopril 2.5mg tab ORAL SCH (08:47)
[2017-05-31] MEDS: Heparin 5000 units/ml inj SUBQ SCH ×2 (08:54→20:53)
--- NOTE | 2017-05-31 11:55 | General Progress Note ---
Assessment/Plan Status: stable Assessment/Plan Assessment/Plan schizoaffective d/o DM -depakote -risperdal -haldol dec -vp business development wnl Subjective Date patient seen: May 31, 2017 Neurologic/Psychiatric: Reports: anxiety, depressed, emotional problems Allergies: Coded Allergies: No Known Allergies (Unverified , 05/07/17) Objective Last 24 Hour Vital Signs Date Time Temp Pulse Resp B/P (MAP) Pulse Ox O2 Delivery O2 Flow Rate FiO2 05/31/17 08:47 159/87 05/31/17 08:40 61 150/69 05/31/17 08:00 98.1 63 21 159/87 99 98.1 05/31/17 05:30 150/69 05/31/17 04:00 96.6 61 20 162/77 98 Room Air 96.6 05/31/17 04:00 98 Room Air 05/31/17 00:00 97.0 60 18 146/69 99 Room Air 97.0 05/30/17 20:00 97.7 69 21 161/74 97 Room Air 97.7 05/30/17 20:00 97 Room Air 05/30/17 16:00 97.3 57 20 150/84 100 97.3 Intake and Output 05/30/17 05/31/17 19:00 07:00 Intake Total 860 ml 750 ml Output Total 1200 ml 1000 ml Balance -340 ml -250 ml Intake Oral 860 ml IV Total 750 ml Output Urine Total 1200 ml 1000 ml Laboratory Tests 05/31/17 06:30: White Blood Count 5.9, Red Blood Count 3.94L, Hemoglobin 11.0L, Hematocrit 32.9L , Mean Corpuscular Volume 83, Mean Corpuscular Hemoglobin 27.8, Mean Corpuscular Hemoglobin Concent 33.3, Red Cell Distribution Width 13.9, Platelet Count 196, Mean Platelet Volume 6.3L, Neutrophils (%) (Auto) 74.9, Lymphocytes ( %) (Auto) 15.5L, Monocytes (%) (Auto) 8.2, Eosinophils (%) (Auto) 0.9, Basophils (%) (Auto) 0.5, Sodium Level 141, Potassium Level 3.6, Chloride Level 106, Carbon Dioxide Level 34H, Anion Gap 1L, Blood Urea Nitrogen 11, Creatinine 0.8, Estimat Glomerular Filtration Rate > 60, Glucose Level 119H, Calcium Level 8.7, Total Bilirubin 0.1L, Aspartate Amino Transf (AST/SGOT) 21, Alanine Aminotransferase (ALT/SGPT) 6L, Alkaline Phosphatase 92, Total Protein 6.1L, Albumin 2.0L, Globulin 4.1, Albumin/Globulin Ratio 0.5L, Valproic Acid (Depakene ) Level 87 Height (Feet): 6 Height (Inches): 1.00 Weight (Pounds): 185 General Appearance: no apparent distress, alert, confused, agitated Marge Barrios M.D. May 31, 2017 11:55
--- NOTE | 2017-05-31 17:26 | Pulmonology Progress Note ---
Assessment/Plan Problems: (1) Hyperglycemia due to type 1 diabetes mellitus (2) Seizure disorder (3) HTN (hypertension) (4) History of CVA (cerebrovascular accident) (5) Behavioral disorder (6) Diabetes (7) Psychosis Assessment/Plan looks comfortable sliding scale psych f/u check electrolytes dc planning d/w dr mcdaniel Subjective Allergies: Coded Allergies: No Known Allergies (Unverified , 05/07/17) Objective Last 24 Hour Vital Signs Date Time Temp Pulse Resp B/P (MAP) Pulse Ox O2 Delivery O2 Flow Rate FiO2 05/31/17 17:16 164/80 05/31/17 16:00 97.7 69 21 164/80 99 97.7 05/31/17 12:00 98.1 73 20 159/81 98 98.1 05/31/17 08:47 159/87 05/31/17 08:40 61 150/69 05/31/17 08:00 98.1 63 21 159/87 99 98.1 05/31/17 05:30 150/69 05/31/17 04:00 96.6 61 20 162/77 98 Room Air 96.6 05/31/17 04:00 98 Room Air 05/31/17 00:00 97.0 60 18 146/69 99 Room Air 97.0 05/30/17 20:00 97.7 69 21 161/74 97 Room Air 97.7 05/30/17 20:00 97 Room Air Intake and Output 05/30/17 05/31/17 19:00 07:00 Intake Total 860 ml 750 ml Output Total 1200 ml 1000 ml Balance -340 ml -250 ml Intake Oral 860 ml IV Total 750 ml Output Urine Total 1200 ml 1000 ml Objective General Appearance: no apparent distress Head: normocephalic, atraumatic Eyes: bilateral eye PERRL, bilateral eye EOMI ENT: normal pharynx, no angioedema Neck: supple, thyroid normal Respiratory: lungs clear, normal breath sounds Cardiovascular #1: regular rate, rhythm Gastrointestinal: non tender, soft Laboratory Tests 05/31/17 06:30: White Blood Count 5.9, Red Blood Count 3.94L, Hemoglobin 11.0L, Hematocrit 32.9L , Mean Corpuscular Volume 83, Mean Corpuscular Hemoglobin 27.8, Mean Corpuscular Hemoglobin Concent 33.3, Red Cell Distribution Width 13.9, Platelet Count 196, Mean Platelet Volume 6.3L, Neutrophils (%) (Auto) 74.9, Lymphocytes ( %) (Auto) 15.5L, Monocytes (%) (Auto) 8.2, Eosinophils (%) (Auto) 0.9, Basophils (%) (Auto) 0.5, Sodium Level 141, Potassium Level 3.6, Chloride Level 106, Carbon Dioxide Level 34H, Anion Gap 1L, Blood Urea Nitrogen 11, Creatinine 0.8, Estimat Glomerular Filtration Rate > 60, Glucose Level 119H, Calcium Level 8.7, Total Bilirubin 0.1L, Aspartate Amino Transf (AST/SGOT) 21, Alanine Aminotransferase (ALT/SGPT) 6L, Alkaline Phosphatase 92, Total Protein 6.1L, Albumin 2.0L, Globulin 4.1, Albumin/Globulin Ratio 0.5L, Valproic Acid (Depakene ) Level 87 Current Medications Medications (Trade) Dose Ordered Sig/Christine Route PRN Reason Start Time Stop Time Status Last Admin Dose Admin Acetaminophen (Tylenol) 650 mg Q4H PRN ORAL fever 05/15/17 06:30 06/14/17 06:29 05/26/17 00:16 Al Hydroxide/Mg Hydroxide (Mylanta II) 30 ml Q6H PRN ORAL dyspepsia 05/15/17 06:30 06/14/17 06:29 Amlodipine Besylate (Norvasc) 10 mg DAILY ORAL 05/15/17 09:00 06/14/17 08:59 05/31/17 08:40 Aspirin (Ecotrin) 81 mg DAILY ORAL 05/21/17 09:00 06/20/17 08:59 05/31/17 08:39 Clonidine HCl (Catapres Tab) 0.1 mg Q4H PRN ORAL sbp more than 160 05/15/17 06:30 06/14/17 06:29 05/31/17 17:16 Clotrimazole (Lotrimin) 1 applic EVERY 12 HOURS TOPIC 05/20/17 09:00 06/19/17 08:59 05/31/17 08:54 Dextrose (Dextrose 50%) STAT PRN IV Hypoglycemia 05/18/17 07:30 06/17/17 07:29 05/29/17 05:11 Divalproex Sodium (Depakote) 1,000 mg EVERY 12 HOURS ORAL 05/15/17 21:00 06/14/17 20:59 05/31/17 08:39 Heparin Sodium (Porcine) (Heparin 5000 units/ml) 5,000 units EVERY 12 HOURS SUBQ 05/15/17 09:00 06/14/17 08:59 05/31/17 08:54 Insulin Aspart (NovoLOG) BEFORE MEALS AND HS SUBQ 05/15/17 06:30 06/14/17 06:29 05/31/17 17:11 Insulin Detemir (Levemir) 6 units BEDTIME SUBQ 05/29/17 21:00 06/27/17 08:59 05/30/17 20:43 Levetiracetam (Keppra) 750 mg TWICE A DAY ORAL 05/15/17 09:00 06/14/17 08:59 05/31/17 17:12 Lisinopril (Zestril) 5 mg DAILY ORAL 05/15/17 09:00 06/14/17 08:59 05/31/17 08:47 Nitroglycerin (Ntg) 0.4 mg Q5M X 3 DOSES PRN SL Prn Chest Pain 05/15/17 06:30 06/14/17 06:29 Ondansetron HCl (Zofran) 4 mg Q6H PRN IVP Nausea & Vomiting 05/15/17 06:30 06/14/17 06:29 05/15/17 09:49 Polyethylene Glycol (Miralax) 17 gm HSPRN PRN ORAL Constipation 05/15/17 06:30 06/14/17 06:29 Risperidone (RisperDAL) 3 mg BID ORAL 05/15/17 18:00 06/14/17 20:59 05/31/17 17:13 MAYRA GUTIERREZ May 31, 2017 17:26
--- NOTE | 2017-05-31 17:54 | General Progress Note ---
Assessment/Plan Problem List: (1) Diabetes ICD Codes: E11.9 - Type 2 diabetes mellitus without complications SNOMED: 25235431 (2) Seizure disorder ICD Codes: G40.909 - Epilepsy, unspecified, not intractable, without status epilepticus SNOMED: 543323231 (3) HTN (hypertension) ICD Codes: I10 - Essential (primary) hypertension SNOMED: 97155743 (4) Psychosis ICD Codes: F29 - Unspecified psychosis not due to a substance or known physiological condition SNOMED: 20341329, 57306887 Qualifiers: Qualified Codes: F23 - Brief psychotic disorder (5) History of CVA (cerebrovascular accident) ICD Codes: Z86.73 - Personal history of transient ischemic attack (TIA), and cerebral infarction without residual deficits SNOMED: 995580355 (6) Behavioral disorder SNOMED: 346012214 Assessment/Plan continue Levemir 6 units qhs add Starlix 60 mg ac tid continue with NISS Subjective ROS Limited/Unobtainable: Yes Allergies: Coded Allergies: No Known Allergies (Unverified , 05/07/17) Subjective events noted fasting glucose improved Objective Last 24 Hour Vital Signs Date Time Temp Pulse Resp B/P (MAP) Pulse Ox O2 Delivery O2 Flow Rate FiO2 05/31/17 17:16 164/80 05/31/17 16:00 97.7 69 21 164/80 99 97.7 05/31/17 12:00 98.1 73 20 159/81 98 98.1 05/31/17 08:47 159/87 05/31/17 08:40 61 150/69 05/31/17 08:00 98.1 63 21 159/87 99 98.1 05/31/17 05:30 150/69 05/31/17 04:00 96.6 61 20 162/77 98 Room Air 96.6 05/31/17 04:00 98 Room Air 05/31/17 00:00 97.0 60 18 146/69 99 Room Air 97.0 05/30/17 20:00 97.7 69 21 161/74 97 Room Air 97.7 05/30/17 20:00 97 Room Air Intake and Output 05/30/17 05/31/17 19:00 07:00 Intake Total 860 ml 750 ml Output Total 1200 ml 1000 ml Balance -340 ml -250 ml Intake Oral 860 ml IV Total 750 ml Output Urine Total 1200 ml 1000 ml Laboratory Tests 05/31/17 06:30: White Blood Count 5.9, Red Blood Count 3.94L, Hemoglobin 11.0L, Hematocrit 32.9L , Mean Corpuscular Volume 83, Mean Corpuscular Hemoglobin 27.8, Mean Corpuscular Hemoglobin Concent 33.3, Red Cell Distribution Width 13.9, Platelet Count 196, Mean Platelet Volume 6.3L, Neutrophils (%) (Auto) 74.9, Lymphocytes ( %) (Auto) 15.5L, Monocytes (%) (Auto) 8.2, Eosinophils (%) (Auto) 0.9, Basophils (%) (Auto) 0.5, Sodium Level 141, Potassium Level 3.6, Chloride Level 106, Carbon Dioxide Level 34H, Anion Gap 1L, Blood Urea Nitrogen 11, Creatinine 0.8, Estimat Glomerular Filtration Rate > 60, Glucose Level 119H, Calcium Level 8.7, Total Bilirubin 0.1L, Aspartate Amino Transf (AST/SGOT) 21, Alanine Aminotransferase (ALT/SGPT) 6L, Alkaline Phosphatase 92, Total Protein 6.1L, Albumin 2.0L, Globulin 4.1, Albumin/Globulin Ratio 0.5L, Valproic Acid (Depakene ) Level 87 Height (Feet): 6 Height (Inches): 1.00 Weight (Pounds): 185 General Appearance: no apparent distress EENT: normal ENT inspection Neck: normal alignment Cardiovascular: regular rhythm Respiratory/Chest: lungs clear Abdomen: normal bowel sounds Edema: no edema noted Arm (L), no edema noted Arm (R), no edema noted Leg (L), no edema noted Leg (R), no edema noted Pedal (L), no edema noted Pedal (R), no edema noted Generalized Objective Item Value Date Time Bedside Blood Glucose 348 mg/dl H 05/31/17 1711 Bedside Blood Glucose 184 mg/dl H 05/31/17 1229 Bedside Blood Glucose 175 mg/dl H 05/31/17 0612 Bedside Blood Glucose 292 mg/dl H 05/30/17 1808 Current Medications Medications (Trade) Dose Ordered Sig/Christine Route PRN Reason Start Time Stop Time Status Last Admin Dose Admin Acetaminophen (Tylenol) 650 mg Q4H PRN ORAL fever 05/15/17 06:30 06/14/17 06:29 05/26/17 00:16 Al Hydroxide/Mg Hydroxide (Mylanta II) 30 ml Q6H PRN ORAL dyspepsia 05/15/17 06:30 06/14/17 06:29 Amlodipine Besylate (Norvasc) 10 mg DAILY ORAL 05/15/17 09:00 06/14/17 08:59 05/31/17 08:40 Aspirin (Ecotrin) 81 mg DAILY ORAL 05/21/17 09:00 06/20/17 08:59 05/31/17 08:39 Clonidine HCl (Catapres Tab) 0.1 mg Q4H PRN ORAL sbp more than 160 05/15/17 06:30 06/14/17 06:29 05/31/17 17:16 Clotrimazole (Lotrimin) 1 applic EVERY 12 HOURS TOPIC 05/20/17 09:00 06/19/17 08:59 05/31/17 08:54 Dextrose (Dextrose 50%) STAT PRN IV Hypoglycemia 05/18/17 07:30 06/17/17 07:29 05/29/17 05:11 Divalproex Sodium (Depakote) 1,000 mg EVERY 12 HOURS ORAL 05/15/17 21:00 06/14/17 20:59 05/31/17 08:39 Heparin Sodium (Porcine) (Heparin 5000 units/ml) 5,000 units EVERY 12 HOURS SUBQ 05/15/17 09:00 06/14/17 08:59 05/31/17 08:54 Insulin Aspart (NovoLOG) BEFORE MEALS AND HS SUBQ 05/15/17 06:30 06/14/17 06:29 05/31/17 17:11 Insulin Detemir (Levemir) 6 units BEDTIME SUBQ 05/29/17 21:00 06/27/17 08:59 05/30/17 20:43 Levetiracetam (Keppra) 750 mg TWICE A DAY ORAL 05/15/17 09:00 06/14/17 08:59 05/31/17 17:12 Lisinopril (Zestril) 5 mg DAILY ORAL 05/15/17 09:00 06/14/17 08:59 05/31/17 08:47 Nitroglycerin (Ntg) 0.4 mg Q5M X 3 DOSES PRN SL Prn Chest Pain 05/15/17 06:30 06/14/17 06:29 Ondansetron HCl (Zofran) 4 mg Q6H PRN IVP Nausea & Vomiting 05/15/17 06:30 06/14/17 06:29 05/15/17 09:49 Polyethylene Glycol (Miralax) 17 gm HSPRN PRN ORAL Constipation 05/15/17 06:30 06/14/17 06:29 Risperidone (RisperDAL) 3 mg BID ORAL 05/15/17 18:00 06/14/17 20:59 05/31/17 17:13 TAMMY CHAPIN May 31, 2017 17:54
[2017-05-31] MEDS: Levemir Flexpen SUBQ SCH (20:54)
[2017-06-01] VITALS (8 sets, daily range): BP systolic 148–178; BP diastolic 62–88
[2017-06-01] MEDS: Nateglinide 60mg tab ORAL SCH ×3 (06:01→16:35)
[2017-06-01] MEDS: NovoLOG Insulin Flexpen SUBQ SCH ×4 (06:01→22:21)
[2017-06-01] MEDS: levETIRAcetam 500mg/5ml Liquid ORAL SCH ×2 (08:57→17:39)
[2017-06-01] MEDS: Depakote 500mg tab ORAL SCH ×2 (08:57→22:19)
[2017-06-01] MEDS: Aspirin EC 81mg tab ORAL SCH (08:57)
[2017-06-01] MEDS: Lisinopril 2.5mg tab ORAL SCH (08:57)
[2017-06-01] MEDS: Heparin 5000 units/ml inj SUBQ SCH ×2 (09:06→22:20)
--- NOTE | 2017-06-01 12:26 | General Progress Note ---
Assessment/Plan Status: stable Assessment/Plan Assessment/Plan schizoaffective d/o DM -depakote -risperdal -haldol dec -vp analysis wnl Subjective Date patient seen: Jun 01, 2017 Neurologic/Psychiatric: Reports: anxiety, depressed, emotional problems Allergies: Coded Allergies: No Known Allergies (Unverified , 05/07/17) Objective Last 24 Hour Vital Signs Date Time Temp Pulse Resp B/P (MAP) Pulse Ox O2 Delivery O2 Flow Rate FiO2 06/01/17 11:29 98.4 58 20 156/62 95 98.4 06/01/17 09:30 148/62 06/01/17 08:57 170/77 06/01/17 08:56 65 170/77 06/01/17 08:22 98.6 65 20 170/77 95 98.6 06/01/17 04:14 98.0 06/01/17 04:00 98.9 63 19 158/74 98 98.9 06/01/17 04:00 98 Room Air 06/01/17 03:15 98.0 06/01/17 01:14 175/88 06/01/17 00:00 98.0 72 19 175/88 99 98.0 06/01/17 00:00 99 Room Air 05/31/17 20:00 98 Room Air 05/31/17 20:00 97.7 71 20 152/75 98 Room Air 97.7 05/31/17 19:37 71 152/75 05/31/17 19:00 152/75 05/31/17 17:16 164/80 05/31/17 16:00 97.7 69 21 164/80 99 97.7 Intake and Output 05/31/17 06/01/17 19:00 07:00 Intake Total 120 ml Output Total 2100 ml 2000 ml Balance -2100 ml -1880 ml Intake Oral 120 ml Output Urine Total 2100 ml 2000 ml # Bowel Movements 2 Height (Feet): 6 Height (Inches): 1.00 Weight (Pounds): 185 General Appearance: no apparent distress, alert, confused Marge Barrios M.D. Jun 01, 2017 12:25
--- NOTE | 2017-06-01 16:55 | Pulmonology Progress Note ---
Assessment/Plan Problems: (1) Hyperglycemia due to type 1 diabetes mellitus (2) Seizure disorder (3) HTN (hypertension) (4) History of CVA (cerebrovascular accident) (5) Behavioral disorder (6) Diabetes (7) Psychosis Assessment/Plan looks comfortable sliding scale psych f/u check electrolytes dc planning d/w dr mcdaniel Subjective ROS Limited/Unobtainable: No Allergies: Coded Allergies: No Known Allergies (Unverified , 05/07/17) Objective Last 24 Hour Vital Signs Date Time Temp Pulse Resp B/P (MAP) Pulse Ox O2 Delivery O2 Flow Rate FiO2 06/01/17 15:45 98.6 77 20 178/73 100 98.6 06/01/17 11:29 98.4 58 20 156/62 95 98.4 06/01/17 09:30 148/62 06/01/17 08:57 170/77 06/01/17 08:56 65 170/77 06/01/17 08:22 98.6 65 20 170/77 95 98.6 06/01/17 04:14 98.0 06/01/17 04:00 98.9 63 19 158/74 98 98.9 06/01/17 04:00 98 Room Air 06/01/17 03:15 98.0 06/01/17 01:14 175/88 06/01/17 00:00 98.0 72 19 175/88 99 98.0 06/01/17 00:00 99 Room Air 05/31/17 20:00 98 Room Air 05/31/17 20:00 97.7 71 20 152/75 98 Room Air 97.7 05/31/17 19:37 71 152/75 05/31/17 19:00 152/75 05/31/17 17:16 164/80 Intake and Output 05/31/17 06/01/17 19:00 07:00 Intake Total 120 ml Output Total 2100 ml 2000 ml Balance -2100 ml -1880 ml Intake Oral 120 ml Output Urine Total 2100 ml 2000 ml # Bowel Movements 2 Objective General Appearance: no apparent distress Head: normocephalic, atraumatic Eyes: bilateral eye PERRL, bilateral eye EOMI ENT: normal pharynx, no angioedema Neck: supple, thyroid normal Respiratory: lungs clear, normal breath sounds Cardiovascular #1: regular rate, rhythm Gastrointestinal: non tender, soft Current Medications Medications (Trade) Dose Ordered Sig/Christine Route PRN Reason Start Time Stop Time Status Last Admin Dose Admin Acetaminophen (Tylenol) 650 mg Q4H PRN ORAL fever 05/15/17 06:30 06/14/17 06:29 06/01/17 03:15 Al Hydroxide/Mg Hydroxide (Mylanta II) 30 ml Q6H PRN ORAL dyspepsia 05/15/17 06:30 06/14/17 06:29 Amlodipine Besylate (Norvasc) 10 mg DAILY ORAL 05/15/17 09:00 06/14/17 08:59 06/01/17 08:56 Aspirin (Ecotrin) 81 mg DAILY ORAL 05/21/17 09:00 06/20/17 08:59 06/01/17 08:57 Clonidine HCl (Catapres Tab) 0.1 mg Q4H PRN ORAL sbp more than 160 05/15/17 06:30 06/14/17 06:29 06/01/17 15:19 Clotrimazole (Lotrimin) 1 applic EVERY 12 HOURS TOPIC 05/20/17 09:00 06/19/17 08:59 06/01/17 08:56 Dextrose (Dextrose 50%) STAT PRN IV Hypoglycemia 05/18/17 07:30 06/17/17 07:29 05/29/17 05:11 Divalproex Sodium (Depakote) 1,000 mg EVERY 12 HOURS ORAL 05/15/17 21:00 06/14/17 20:59 06/01/17 08:57 Heparin Sodium (Porcine) (Heparin 5000 units/ml) 5,000 units EVERY 12 HOURS SUBQ 05/15/17 09:00 06/14/17 08:59 06/01/17 09:06 Insulin Aspart (NovoLOG) BEFORE MEALS AND HS SUBQ 05/15/17 06:30 06/14/17 06:29 06/01/17 16:36 Insulin Detemir (Levemir) 6 units BEDTIME SUBQ 05/29/17 21:00 06/27/17 08:59 05/31/17 20:54 Levetiracetam (Keppra) 750 mg TWICE A DAY ORAL 05/15/17 09:00 06/14/17 08:59 06/01/17 08:57 Lisinopril (Zestril) 5 mg DAILY ORAL 05/15/17 09:00 06/14/17 08:59 06/01/17 08:57 Nateglinide (Starlix) 60 mg TIAC ORAL 06/01/17 06:30 07/01/17 06:29 06/01/17 16:35 Nitroglycerin (Ntg) 0.4 mg Q5M X 3 DOSES PRN SL Prn Chest Pain 05/15/17 06:30 06/14/17 06:29 Ondansetron HCl (Zofran) 4 mg Q6H PRN IVP Nausea & Vomiting 05/15/17 06:30 06/14/17 06:29 05/15/17 09:49 Polyethylene Glycol (Miralax) 17 gm HSPRN PRN ORAL Constipation 05/15/17 06:30 06/14/17 06:29 Risperidone (RisperDAL) 3 mg BID ORAL 05/15/17 18:00 06/14/17 20:59 06/01/17 08:56 MAYRA GUTIERREZ Jun 01, 2017 16:55
[2017-06-01] MEDS: Levemir Flexpen SUBQ SCH (22:21)
[2017-06-02] VITALS: BP 169/80
[2017-06-02 03:36] VITALS: BP 158/84
[2017-06-02] MEDS: Nateglinide 60mg tab ORAL SCH ×3 (06:32→17:11)
[2017-06-02] MEDS: NovoLOG Insulin Flexpen SUBQ SCH ×3 (06:33→17:16)
[2017-06-02 07:59] VITALS: BP 165/78
[2017-06-02] MEDS: Aspirin EC 81mg tab ORAL SCH (08:18)
[2017-06-02] MEDS: Lisinopril 2.5mg tab ORAL SCH (08:19)
[2017-06-02] MEDS: Depakote 500mg tab ORAL SCH (08:19)
[2017-06-02] MEDS: Heparin 5000 units/ml inj SUBQ SCH (08:21)
[2017-06-02] MEDS: levETIRAcetam 500mg/5ml Liquid ORAL SCH ×2 (08:23→17:11)
[2017-06-02 12:00] VITALS: BP 155/82
--- NOTE | 2017-06-02 12:29 | General Progress Note ---
Assessment/Plan Assessment/Plan Assessment/Plan schizoaffective d/o DM -depakote -risperdal -haldol dec -vp & general counsel wnl Subjective Date patient seen: Jun 02, 2017 Neurologic/Psychiatric: Reports: anxiety, depressed, emotional problems Allergies: Coded Allergies: No Known Allergies (Unverified , 05/07/17) Objective Last 24 Hour Vital Signs Date Time Temp Pulse Resp B/P (MAP) Pulse Ox O2 Delivery O2 Flow Rate FiO2 06/02/17 08:22 165/78 06/02/17 08:22 62 165/78 06/02/17 08:19 165/78 06/02/17 07:59 98.1 62 18 165/78 100 Room Air 98.1 06/02/17 05:49 97.9 06/02/17 04:50 97.9 06/02/17 03:36 97.9 69 18 158/84 100 Room Air 97.9 06/02/17 02:16 169/80 06/02/17 00:00 98.5 76 18 169/80 99 98.5 06/02/17 00:00 Room Air 06/01/17 20:00 Room Air 06/01/17 20:00 97.0 63 18 150/68 100 97.0 06/01/17 17:00 150/80 06/01/17 15:45 98.6 77 20 178/73 100 98.6 Intake and Output 06/01/17 06/02/17 19:00 07:00 Intake Total 840 ml Output Total 1200 ml 1500 ml Balance -360 ml -1500 ml Intake Oral 840 ml Output Urine Total 1200 ml 1500 ml # Bowel Movements 1 Height (Feet): 6 Height (Inches): 1.00 Weight (Pounds): 185 Marge Barrios M.D. Jun 02, 2017 12:29
--- NOTE | 2017-06-02 15:07 | General Progress Note ---
Assessment/Plan Status: stable Assessment/Plan Covering for Dr Cash: (1) Hyperglycemia due to type 1 diabetes mellitus (2) Seizure disorder (3) HTN (hypertension) (4) History of CVA (cerebrovascular accident) (5) Behavioral disorder (6) Diabetes (7) Psychosis Assessment/Plan looks comfortable notes from psych reviewed agreed with current management Subjective Allergies: Coded Allergies: No Known Allergies (Unverified , 05/07/17) Objective Last 24 Hour Vital Signs Date Time Temp Pulse Resp B/P (MAP) Pulse Ox O2 Delivery O2 Flow Rate FiO2 06/02/17 12:00 98.3 81 21 155/82 99 98.3 06/02/17 08:22 165/78 06/02/17 08:22 62 165/78 06/02/17 08:19 165/78 06/02/17 07:59 98.1 62 18 165/78 100 Room Air 98.1 06/02/17 05:49 97.9 06/02/17 04:50 97.9 06/02/17 03:36 97.9 69 18 158/84 100 Room Air 97.9 06/02/17 02:16 169/80 06/02/17 00:00 98.5 76 18 169/80 99 98.5 06/02/17 00:00 Room Air 06/01/17 20:00 Room Air 06/01/17 20:00 97.0 63 18 150/68 100 97.0 06/01/17 17:00 150/80 06/01/17 15:45 98.6 77 20 178/73 100 98.6 Intake and Output 06/01/17 06/02/17 19:00 07:00 Intake Total 840 ml Output Total 1200 ml 1500 ml Balance -360 ml -1500 ml Intake Oral 840 ml Output Urine Total 1200 ml 1500 ml # Bowel Movements 1 Height (Feet): 6 Height (Inches): 1.00 Weight (Pounds): 185 Rodrigo Antoine MD Jun 02, 2017 15:07
[2017-06-02] MEDS ORDERED: NOVOLOG100 UNIT/4 SQ (16:10)
[2017-06-02] MEDS ORDERED: NITROGLYCERIN0.4 MG SL (16:10)
[2017-06-02] MEDS ORDERED: CATAPRES0.1 MG ORAL (16:11)
[2017-06-02 16:20] VITALS: BP 169/85
[2017-06-02 18:00] VITALS: BP 148/78
--- NOTE | 2017-06-04 13:24 | Discharge Summary ---
Discharge Summary Hospital Course Date of Admission May 15, 2017 at 04:06 Date of Discharge Jun 02, 2017 at 19:20 Admitting Diagnosis hyperglycemia/psych HPI Billy Thornton is a 61 year old male who was admitted on May 15, 2017 at 04: 06 for Hyperglycemia Hospital Course [id number] Discharge Discharge Disposition Patient was discharged to SNF/Subacute Facility(03) Discharge Diagnoses: Kaylynn Renteria NP Jun 04, 2017 13:24
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
== END 2017-06-02 19:20 | DRG 420 ==
LOC: EDBD 01:36 → EMR 01:55 → 4W 05-15 04:06 → EDBEDREQ 05-15 05:22 → 4W 05-15 07:30 → EDBEDREQ 05-18 08:18 → 4W 05-18 08:20
DX: E10.65 Type 1 diabetes mellitus with hyperglycemia (principal); F25.8 Other schizoaffective disorders; I10 Essential (primary) hypertension; G40.909 Epilepsy, unspecified, not intractable, without status epilepticus; Z86.73 Personal history of transient ischemic attack (TIA), and cerebral infarction without residual deficits; F10.10 Alcohol abuse, uncomplicated
CPT/HCPCS: 36415; 80048; 80053; 80061; 80164; 82947; 82962; 83036; 83735; 84100; 84443; 85025; 94664; 99285; J1815; J2405; S5561